=== PATIENT | female | born 1960 | race Caucasian/White ===

== ENCOUNTER 2019-12-14 15:21 | Outpatient (CLI) | payer OTHER, SELFPAY ==
[2019-12-14 17:55] LABS: Blood Urea Nitrogen 21 mg/dL (7-17); Calcium 10.1 mg/dL (8.4-10.2); Carbon Dioxide 29 mmol/L (22-30); Chloride 99 mmol/L (98-107); Estimated Glomerular Filt Rate > 60; Glucose 89 mg/dL (65-105); Potassium 3.9 mmol/L (3.4-5.0); Sodium 137 mmol/L (137-145)
--- NOTE | 2019-12-19 12:14 | WPDHOLTEREM ---
Holter/Event Monitor Holter/Event Monitor Date of procedure: 12/14/19 Procedure Type: 24 hour holter monitor Indications: Palpitations, HTN Conclusion: 1. 24 hour holter monitor on 12/14/19. 2. Underlying rhythm is sinus rhythm. HR range 59-141 bpm; average HR 81 bpm. 3. There are 6 premature supraventricular complexes. No supraventricular tachycardia. 4. No premature ventricular complexes. No ventricular tachycardia. 5. No sinoatrial or atrioventricular blocks. No significant pauses greater than 2 seconds. 6. Patient reports symptoms of fluttering and racing which demonstrate sinus rhythm, HR range 76-102 bpm.
== END 2019-12-14 15:22 | disposition home or self-care (01) ==
DX: R00.2 Palpitations (principal); I10 Essential (primary) hypertension; I49.3 Ventricular premature depolarization
CPT/HCPCS: 36415; 80048; 83735; 84443; 93225; 93226

== ENCOUNTER 2020-08-26 06:38 | Outpatient (CLI) | payer OTHER, SELFPAY ==
[2020-08-26 07:43] LABS: Hematocrit 38.1 % (37.0-47.0); Hemoglobin 12.8 g/dL (12.0-15.0); Mean Corpuscular HGB Conc 33.6 g/dl (32-36); Mean Corpuscular Hemoglobin 31.1 pg (26-34); Mean Corpuscular Volume 92.5 fl (80-100); Mean Platelet Volume 9.7 fl (7.4-10.4); Platelet Count Result 295 k/mm3 (150-375); Red Blood Count 4.12 M/mm3 (4.2-5.4); Red Cell Distribution Width 11.9 % (11.5-14.5); White Blood Count 5.5 K/mm3 (4.5-10.0)
[2020-08-26 07:52] LABS: Add Urine Microscopic? YES; Appearance Urine Clear (Clear); Bacteria Urine 3+ /hpf; Bilirubin Urine Negative (Negative); Blood Urine Negative (Negative); Color Urine Yellow (Yellow); Glucose Urine UA Negative (Negative); Ketones Urine Negative (Negative); Leukocyte Esterase Ur 2+ LEU/UL (Negative); Mucus Urine Rare /lpf; Nitrate Urine Positive (Negative); Protein Urine Negative (Negative); Specific Grav Ur 1.011 (1.001-1.035); Squamous Epithelial Cell Urine Few /hpf (Few); Transitional Epi Cells Urine Rare /hpf (None Seen); Urobilinogen Urine Negative mg/dL (<2.0); WBC Urine 51-75 /hpf
[2020-08-26 07:56] LABS: Cholesterol 280 mg/dL (0-200); HDL Direct 69 mg/dL; Triglycerides 231 mg/dL (<150)
[2020-08-26 08:07] LABS: LDL Cholesterol Direct 172 mg/dL
[2020-08-26 10:23] LABS: Hepatitis C Virus Antibody Negative (Negative)
== END 2020-08-26 06:39 | disposition home or self-care (01) ==
PROVIDERS: PCP Internal Medicine; Visit Provider Internal Medicine
DX: Z13.29 Encounter for screening for other suspected endocrine disorder (principal); Z13.228 Encounter for screening for other metabolic disorders; Z13.0 Encounter for screening for diseases of the blood and blood-forming organs and certain disorders involving the immune mechanism; E78.00 Pure hypercholesterolemia, unspecified; Z11.59 Encounter for screening for other viral diseases; I10 Essential (primary) hypertension; R00.2 Palpitations
CPT/HCPCS: 36415; 80061; 81001; 83735; 84443; 85027; 86803; 87077; 87086; 87088; 87186

== ENCOUNTER 2020-10-02 06:50 | Outpatient (CLI) | payer OTHER, SELFPAY ==
--- NOTE | ~2020-10-02 | XR_ITS ---
EXAMINATION: XR chest 2V DATE: 10/02/2020 07:16 INDICATION: Chronic cough TECHNIQUE: PA and lateral views of the chest were obtained. COMPARISON: Chest radiograph dated 05/19/2006 FINDINGS: The lungs remain clear with no focal airspace opacities, pulmonary edema, pleural effusion or pneumot horax. The cardiomediastinal silhouette is normal. Mild to moderate thoracic spondylosis. IMPRESSION: 1. No acute cardiopulmonary disease. Reviewed, dictated and finalized at location A. ETIC DENTIST
[2020-10-02 08:02] LABS: Basophils Absolute Auto 0.1 K/mm3 (0.0-0.1); Basophils Percent Auto 0.9 % (0.2-1.2); Eosinophils Absolute Auto 0.2 K/mm3 (0-0.3); Eosinophils Percent Auto 2.9 % (0-4.4); Hematocrit 37.3 % (37.0-47.0); Hemoglobin 12.5 g/dL (12.0-15.0); Immature Granulocyte Absolute 0.01 K/mm3 (0.00-0.031); Immature Granulocyte Percent A 0.2 % (0-0.5); Lymphocytes Absolute Auto 2.07 K/mm3 (0.9-3.2); Mean Corpuscular HGB Conc 33.5 g/dl (32-36); Mean Corpuscular Hemoglobin 30.2 pg (26-34); Mean Corpuscular Volume 90.1 fl (80-100); Mean Platelet Volume 9.5 fl (7.4-10.4); Monocytes Absolute Auto 0.5 K/mm3 (0.1-0.6); Monocytes Percent Auto 9.3 % (2.6-8.5); Neutrophils Absolute Auto 2.8 K/mm3 (1.3-6.7); Neutrophils Percent Auto 49.7 % (45.5-73.1); Platelet Count Result 290 k/mm3 (150-375); Red Blood Count 4.14 M/mm3 (4.2-5.4); Red Cell Distribution Width 11.9 % (11.5-14.5); White Blood Count 5.6 K/mm3 (4.5-10.0)
[2020-10-02 08:19] LABS: CRP < 0.5 mg/dL (<1.0)
[2020-10-02 08:44] LABS: Erythrocyte Sedimentation Rate 20 mm/hr (0-20)
--- NOTE | 2020-10-02 15:51 | WPDPFTINT ---
PFT Interpretation This is a pulmonary function test with pre and post-bronchodilator spirometry, plethysmography and diffusing capacity. The test was performed and results interpreted in accordance with the 2019 and 2005 ATS/ERS Task Force guidelines respectively using the Ward/Pooja reference equations. Findings: Spirometry: the contour of the inspiratory and expiratory flow tracing are normal. The pre bronchodilator FVC is 2.82 L, 97% predicted. The pre bronchodilator FEV1 is 2.34 L, 110% predicted. The FEV1: FVC ratio was 83%. The post bronchodilator FVC is 2.61 L, representing a 7% decrease. The post bronchodilator FEV1 is 2.27 L, representing a 3% decrease. Plethysmography: The total lung capacity is 4.67 L, 100% predicted. The functional residual capacity is 2.49 L, 93% predicted. The residual volume is 1.78 L, 100% predicted. Diffusing capacity: The absolute diffusion capacity is 14.8, 78% predicted. The diffusing capacity corrected for alveolar volume is 3.97, 106% predicted. Impression: The spirometry is normal without evidence of an obstructive abnormality. There is no significant improvement after inhaling a single dose of albuterol. The lung volumes are normal. The diffusing capacity is normal. There are no prior studies for comparison
[2020-10-06 00:36] LABS: Immunoglobulin E 18 kU/L (<=114)
== END 2020-10-02 06:51 | disposition home or self-care (01) ==
PROVIDERS: PCP Internal Medicine
DX: R05 Cough (principal)
CPT/HCPCS: 36415; 71046; 82785; 85025; 85652; 86140; 94060; 94726; 94729

== ENCOUNTER 2020-10-24 09:32 | Outpatient (CLI) | payer OTHER, SELFPAY ==
--- NOTE | 2020-10-24 16:48 | P.PCNPFT_ITS ---
PFT Interpretation This is a methacholine challenge test. The test was performed and interpreted in accordance with the 1999 [place] [employer] guidelines. The test was performed with increasing doses of nebulized methacholine using a 2 minute tidal breathing protocol. The best post-methacholine FEV1 values were used to calculate the change from the post diluent FEV1. Findings: Baseline FEV1 2.27 L, 96% predicted. Post diluent FEV1 2.27 L Post 0.025 mg/ml methacholine FEV1 2.27 L, no change Post 0.25 mg/mL methacholine FEV1 2.25 L, decreased 1% Post 2.5 mg/mL methacholine FEV1 2.28 L, increase 1% Post 10 mg/mL methacholine FEV1 2.25 L, decreased 1% Post 25 mg/mL methacholine FEV1 2.24 L, decreased 1% Post albuterol nebulization FEV1 2.27 L Impression: The PC20 is > 25 mg/ml which is categorized as normal bronchial responsiveness. There are no prior methacholine challenge studies for comparison
== END 2020-10-24 09:33 | disposition home or self-care (01) ==
LOC: ANHPFT 09:34
PROVIDERS: PCP Internal Medicine
DX: R05 Cough (principal)
CPT/HCPCS: 94070; J7674

== ENCOUNTER 2021-02-26 07:05 | Outpatient (CLI) | payer OTHER, SELFPAY ==
[2021-02-26 09:43] LABS: Alanine Aminotransferase 32 U/L (4-35); Albumin Level 4.5 g/dL (3.5-5.1); Alkaline Phosphatase 73 U/L (38-126); Anion Gap 8 mmol/L (8-16); Aspartate Amino Transferase 52 U/L (14-36); Bilirubin,Total 0.6 mg/dL (0.2-1.3); Blood Urea Nitrogen 12 mg/dL (7-17); Calcium 9.8 mg/dL (8.4-10.2); Carbon Dioxide 29 mmol/L (22-30); Chloride 96 mmol/L (98-107); Cholesterol 198 mg/dL (0-200); Creatine Kinase 63 U/L (30-135); Estimated Glomerular Filt Rate > 60; Glucose 99 mg/dL (65-110); HDL Direct 69 mg/dL; Potassium 4.6 mmol/L (3.4-5.0); Sodium 133 mmol/L (137-145); Triglycerides 112 mg/dL (<150)
[2021-02-26 09:54] LABS: LDL Cholesterol Direct 85 mg/dL
== END 2021-02-26 07:06 | disposition home or self-care (01) ==
PROVIDERS: PCP Internal Medicine; Visit Provider Internal Medicine
DX: E78.5 Hyperlipidemia, unspecified (principal); I10 Essential (primary) hypertension
CPT/HCPCS: 36415; 80053; 80061; 82550

== ENCOUNTER 2021-03-03 07:01 | Outpatient (CLI) | payer OTHER, SELFPAY ==
[2021-03-03 07:32] LABS: Alanine Aminotransferase 33 U/L (4-35); Albumin Level 4.6 g/dL (3.5-5.1); Alkaline Phosphatase 74 U/L (38-126); Anion Gap 9 mmol/L (8-16); Aspartate Amino Transferase 46 U/L (14-36); Bilirubin,Total 0.5 mg/dL (0.2-1.3); Blood Urea Nitrogen 16 mg/dL (7-17); Calcium 9.7 mg/dL (8.4-10.2); Carbon Dioxide 27 mmol/L (22-30); Chloride 102 mmol/L (98-107); Estimated Glomerular Filt Rate > 60; Glucose 104 mg/dL (65-110); Potassium 4.4 mmol/L (3.4-5.0); Sodium 138 mmol/L (137-145)
== END 2021-03-03 07:02 | disposition home or self-care (01) ==
LOC: ANHLAB 07:05
PROVIDERS: PCP Internal Medicine; Visit Provider Internal Medicine
DX: E87.1 Hypo-osmolality and hyponatremia (principal)
CPT/HCPCS: 36415; 80053

== ENCOUNTER 2021-04-14 09:13 | Emergency (ER) | payer OTHER, SELFPAY ==
[2021-04-14 09:24] VITALS: BP 173/92; PULSE 77; RESP 16; TEMP 36.4; O2SAT 100
--- NOTE | 2021-04-14 09:32 | ED.GENADULT ---
HPI - General Adult General Chief complaint: Nausea/Vomiting/Diarrhea Stated complaint: Throwing Up Time Seen by Provider: 04/14/21 09:32 Source: patient and RN notes reviewed Mode of arrival: ambulatory Limitations: no limitations History of Present Illness HPI narrative: 61-year-old female presents to the [facility] with complaints of diarrhea since yesterday, woke up in the middle the night with a fever of 100, states that she started vomiting. Comes in today with concerns. Patient states that she was exposed 10 days ago Patient reports that she has taken 3 home Covid tests and states they were all negative. She was concerned of the diarrhea since yesterday and the vomiting last night. Denies any new foods. Denies eating out. Denies any chest pain or abdominal pain. Related Data Home Medications Medication Instructions Recorded Confirmed irbesartan 300 mg PO DAILY 04/14/21 04/14/21 metoprolol succinate 50 mg PO DAILY 04/14/21 04/14/21 Allergies Allergy/AdvReac Type Severity Reaction Status Date / Time clarithromycin AdvReac Unknown NAUSEA/VOMI Verified 04/14/21 09:36 TING levofloxacin AdvReac Unknown SEVERE ABD Verified 04/14/21 09:36 PAIN lisinopril AdvReac Unknown COUGH Verified 04/14/21 09:36 Review of Systems Review of Systems: All systems reviewed & are unremarkable except as noted in HPI and below Constitutional: Constitutional: Reports as per HPI, Denies chills and Reports fever(s) Eyes: Eyes: Reports no additional eye complaints ENT: Reports system reviewed and no additional complaints, except as documented Cardiovascular: Cardiovascular: Reports no additional cardiovascular complaints and Denies chest pain Respiratory: Respiratory: Reports no additional respiratory complaints, Denies cough, Denies dyspnea and Denies wheezing Gastrointestinal: Gastrointestinal: Reports as per HPI, Denies abdominal pain, Reports diarrhea, Denies nausea and Reports vomiting Musculoskeletal: Musculoskeletal: Reports no additional musculoskeletal complaints, Denies back pain, Denies joint swelling and Denies muscle cramps Integumentary/Breasts: Skin/Breast: Reports system reviewed and no additional complaints, except as docu and Denies rash Neurologic: Reports system reviewed and no additional complaints, except as documented Psychiatric: Psychiatric: Reports no additional psychiatric complaints Allergic/Immunologic: Allergic/Immunologic: Reports no additional allergic/immunologic complaints PMFSH Past Medical History Medical History Hypertension Surgical History Surgical History (Updated 04/14/21 @ 09:49 by Aide Guerra) No significant past surgical history Family History Family History Other Hypertension Social History Social History Smoking status: Never smoker Alcohol intake: current Comments At the time of my signature, I reviewed and agree with the nursing past medical, surgical, social, and family history. There is no relevant family history pertinent to the patient complaint. Exam Narrative: Patient appears healthy, nontoxic. In no acute distress. Const: General: healthy appearing, no acute distress and alert Nutritional Appearance: well nourished Orientation/consciousness: patient oriented x3 Limitations: no limitations HENMT: Head: normal to inspection Ears: external ears normal Eyes: Conjunctivae: conjunctivae normal Pupils: Equal, round and reactive pupils present Neck: Neck: normal visual inspection, no lymphadenopathy and no meningeal signs Chest: Chest palpation & inspection: normal inspection of the chest Resp: Effort & Inspection: normal respiratory effort and no use of accessory muscles Auscultation: clear to auscultation bilaterally, no crackles, no rales, no rhonchi and no wheezes Cardio: Rate: regular
[2021-04-15 19:52] LABS: SARS-CoV-2 RNA PCR Negative
== END 2021-04-14 09:58 | disposition home or self-care (01) ==
PROVIDERS: Emergency Provider Nurse Practitioner; PCP Internal Medicine
DX: K52.9 Noninfective gastroenteritis and colitis, unspecified (principal); I10 Essential (primary) hypertension; Z20.822 Contact with and (suspected) exposure to COVID-19
CPT/HCPCS: 99213; C9803; G0463; U0003; U0005

== ENCOUNTER 2021-06-17 06:53 | Outpatient (CLI) | payer OTHER, SELFPAY ==
[2021-06-17 07:25] LABS: Alanine Aminotransferase 31 U/L (4-35); Albumin Level 4.9 g/dL (3.5-5.1); Alkaline Phosphatase 75 U/L (38-126); Anion Gap 6 mmol/L (8-16); Aspartate Amino Transferase 39 U/L (14-36); Bilirubin,Total 0.6 mg/dL (0.2-1.3); Blood Urea Nitrogen 15 mg/dL (7-17); Calcium 9.8 mg/dL (8.4-10.2); Carbon Dioxide 31 mmol/L (22-30); Chloride 100 mmol/L (98-107); Estimated Glomerular Filt Rate > 60; Glucose 103 mg/dL (65-110); Potassium 4.4 mmol/L (3.4-5.0); Sodium 137 mmol/L (137-145)
== END 2021-06-17 06:54 | disposition home or self-care (01) ==
LOC: ANHLAB 06:57
PROVIDERS: PCP Internal Medicine; Visit Provider Internal Medicine
DX: R74.01 Elevation of levels of liver transaminase levels (principal); E87.1 Hypo-osmolality and hyponatremia
CPT/HCPCS: 36415; 80053

== ENCOUNTER 2021-10-20 07:30 | Outpatient (RCR) | payer OTHER, SELFPAY ==
--- NOTE | 2021-09-30 15:22 | PTOPEVAL ---
PHYSICAL THERAPY EVALUATION AND PLAN OF CARE Thank you for referring Vivi Clifford to [facility].? The patient is scheduled to be seen for therapy? 2x/week for 3 weeks. Please review, sign, date and return this plan of care ERIC. I agree with and certify that the following plan of care is medically necessary. Referring Physician Date Attending Provider: Milad Mendoza MD Evaluation Diagnosis left knee pain Onset May 2021 Subjective Information In 05/29 she took a small Query Text:As Reported By Patient/ stumble in the door jam and Family she fell to the left without significant injury. Over time though she was feeling that evrey time she would stand up she felt pain or pinching or the knee giving out. She received an injection from the doctor and she is feeling only minimal pain in the knee. Since the injection she has only been feeling minimally any instability or achiness in the knee. Self Report Pain Assessment Left Knee(s) Reported Pain Level 0 Pain Description Aching Pain Frequency Chronic,Intermittent Greatest Pain Intensity 3 Pain Score Pain Score 0: Self Report Interventions Used Interventions Used By Clinicians Exercise Lower Extremity Range of Motion General Lower Extremity Range of Motion Reason Not Measured WNL/Left,WNL/Right Lower Extremity Muscle Strength Testing Hip Strength Right Hip Flexion Strength 5 Normal Hip Extension Strength 4- Good - Hip Abduction Strength 3+ Fair + Left Hip Flexion Strength 4 Good Hip Extension Strength 3+ Fair + Hip Abduction Strength 4- Good - Knee Strength Right Knee Flexion Strength 5 Normal Knee Extension Strength 5 Normal Knee Strength Comments single leg sit to stand: performed well with confidence single leg heel raises: 07/28 Left Knee Flexion Strength 4 Good Knee Extension Strength 4 Good Knee Strength Comments single leg sit to stand: performed well with some hesitancy to descend and ascend; single leg heel raises : 05/28 Muscle Length Testing Muscle Length Testing Left Hamstring Length -30 Query Text:(90 - 90 Position) Right Hamstring Length
--- NOTE | 2021-10-20 07:59 | PTOPEVAL ---
PHYSICAL THERAPY DISCHARGE NOTE Thank you for referring Vivi Clifford to [facility].? Please review, sign, date and return this plan of care ERIC. I agree with and certify that the following plan of care is medically necessary. Referring Physician Date Attending Provider: Milad Mendoza MD Discharge Diagnosis left knee pain Onset May 2021 Subjective Information Jaylene has participated in Query Text:As Reported By Patient/ physical therapy for 3 weeks. Family She reports that she has been doing yard work and gardening without feeling like the knee is going to give out and only having a little bit of soreness a few hours after. Pain Assessment Timing of Pain Assessment Timing of Pain Assessment Assessment Self Report Self Report Pain Level 0 Pain Score Pain Score 0: Self Report Lower Extremity Range of Motion General Lower Extremity Range of Motion Reason Not Measured WNL/Left,WNL/Right Lower Extremity Muscle Strength Testing Hip Strength Right Hip Flexion Strength 5 Normal Hip Extension Strength 4+ Good + Hip Abduction Strength 4+ Good + Left Hip Flexion Strength 5 Normal Hip Extension Strength 4+ Good + Hip Abduction Strength 4+ Good + Knee Strength Right Knee Flexion Strength 5 Normal Knee Extension Strength 5 Normal Knee Strength Comments single leg sit to stand: performed well with confidence Left Knee Flexion Strength 5 Normal Knee Extension Strength 5 Normal Knee Strength Comments single leg sit to stand: performed well with only mild difficulty compared to the right Muscle Length Testing Muscle Length Testing Left Hamstring Length -20 Query Text:(90 - 90 Position) Right Hamstring Length -20 Query Text:(90 - 90 Position) General Exercise General Exercises Side Left,Bilateral Exercise Location LE Exercise Type Active,Proprioceptive Neuromuscular Facilitation, Resistive,Stabilization, Stretching Exercise Description reviewed HEP Query Text:Record Sets, Reps, Resistance, and Position Bike Exercise Bike Extremity Bilateral Lower Type of Bike Recumbent Bike Resistance 6 Duration (minutes) 6 Exercise Commen
== END 2021-10-20 08:56 | disposition home or self-care (01) ==
LOC: ANHPT 07:30
PROVIDERS: PCP Internal Medicine; Referring Provider Orthopaedic Surgery; Visit Provider Orthopaedic Surgery
DX: M25.562 Pain in left knee (principal); G89.29 Other chronic pain
CPT/HCPCS: 97110; 97112; 97161; 97530

== ENCOUNTER 2022-03-15 02:37 | Emergency (ER) | payer OTHER, SELFPAY ==
[2022-03-15] VITALS (7 sets, daily range): BP systolic 141–183; BP diastolic 70–113; PULSE 72–84; RESP 17–20; TEMP 36.6; O2SAT 97–99
[2022-03-15] MEDS: ONDANSETRON INJ 4 MG/2 ML VIAL IV PUSH (03:42)
[2022-03-15] MEDS: SODIUM CHLORIDE 0.9% IV 2,000 ML 999 ML IV CONT (03:43)
[2022-03-15] MEDS: FAMOTIDINE 20 MG/2 ML VIAL IV PUSH (03:43)
[2022-03-15 03:52] LABS: Basophils Absolute Auto 0.1 K/mm3 (0.0-0.1); Basophils Percent Auto 0.7 % (0.2-1.2); Eosinophils Absolute Auto 0.1 K/mm3 (0-0.3); Eosinophils Percent Auto 0.7 % (0-4.4); Hematocrit 34.6 % (37.0-47.0); Hemoglobin 12.1 g/dL (12.0-15.0); Immature Granulocyte Absolute 0.02 K/mm3 (0.00-0.031); Immature Granulocyte Percent A 0.2 % (0-0.5); Lymphocytes Absolute Auto 2.71 K/mm3 (0.9-3.2); Lymphocytes Percent Auto 31.8 % (18.3-44.2); Mean Corpuscular Hemoglobin 30.6 pg (26-34); Mean Corpuscular Volume 87.6 fl (80-100); Mean Platelet Volume 10.2 fl (7.4-10.4); Monocytes Absolute Auto 0.7 K/mm3 (0.1-0.6); Monocytes Percent Auto 8.6 % (2.6-8.5); Neutrophils Absolute Auto 4.9 K/mm3 (1.3-6.7); Platelet Count Result 284 k/mm3 (150-375); Red Blood Count 3.95 M/mm3 (4.2-5.4); Red Cell Distribution Width 11.6 % (11.5-14.5); White Blood Count 8.5 K/mm3 (4.5-10.0)
[2022-03-15 04:04] LABS: Alanine Aminotransferase 17 U/L (6-35); Albumin Level 4.8 g/dL (3.5-5.1); Alkaline Phosphatase 87 U/L (38-126); Anion Gap 12 mmol/L (8-16); Aspartate Amino Transferase 37 U/L (14-36); Bilirubin,Total 0.9 mg/dL (0.2-1.3); Blood Urea Nitrogen 17 mg/dL (7-17); Calcium 9.3 mg/dL (8.4-10.2); Carbon Dioxide 24 mmol/L (22-30); Chloride 88 mmol/L (98-107); Estimated CRCL calculation 46 ml/min; Estimated Glomerular Filt Rate > 60; Glucose 130 mg/dL (65-110); Lipase 71 U/L (23-300); Potassium 3.6 mmol/L (3.4-5.0); Sodium 124 mmol/L (137-145)
--- NOTE | 2022-03-15 04:17 | PC.NURSE ---
Patient given ice chips upon request, ERP okayed.
[2022-03-15] MEDS: ONDANSETRON HCL ODT 4 MG TABLET PO (04:24)
--- NOTE | 2022-03-15 04:46 | ED.GENADULT ---
HPI - General Adult General Chief complaint: Nausea/Vomiting/Diarrhea Stated complaint: N/V/D, dehydration? Time Seen by Provider: 03/15/22 03:19 History of Present Illness HPI narrative: This is a 61-year-old female presenting to ED for nausea and vomiting. The patient was outside at a licensed appraiser throughout most of the day. She is confined to a small room that was very hot. She was sweating profusely. She did try to rehydrate by drinking water. She did not drink anything with electrolytes. When the patient got home she was nauseous and vomiting. She cannot keep down fluids. She is thinking the emergency department for further evaluation. Patient denies chest pain, difficulty breathing abdominal pain or diarrhea. Related Data Home Medications Medication Instructions Recorded Confirmed irbesartan 300 mg tablet 300 mg PO DAILY 04/14/21 11/11/21 metoprolol succinate 50 mg 50 mg PO DAILY 04/14/21 11/11/21 tablet,extended release 24 hr budesonide 32 mcg/actuation nasal 1 spray intranasal DAILY 09/24/21 11/11/21 spray oxybutynin chloride 15 mg 15 mg PO DAILY 09/24/21 11/11/21 tablet,extended release 24 hr rosuvastatin 10 mg tablet 10 mg PO DAILY 09/24/21 11/11/21 sertraline 25 mg tablet 25 mg PO DAILY 09/24/21 11/11/21 Allergies Allergy/AdvReac Type Severity Reaction Status Date / Time clarithromycin AdvReac Unknown NAUSEA/VOMI Verified 03/15/22 02:54 TING levofloxacin AdvReac Unknown SEVERE ABD Verified 03/15/22 02:54 PAIN lisinopril AdvReac Unknown COUGH Verified 03/15/22 02:54 Review of Systems Review of Systems: CONSTITUTIONAL: Denies night sweats. EYES: No eye pain ENT: Denies rhinorrhea CARDIOVASCULAR: Denies palpitations RESPIRATORY: Denies hemoptysis GASTROINTESTINAL: Denies hematemesis GENITOURINARY: Denies hematuria. SKIN: Denies rash MUSCULOSKELETAL: Denies myalgia. NEUROLOGIC: Denies weakness. PSYCHIATRIC: Denies delusions PMFSH Past Medical History Medical History Depression Heart disease Hyperlipidemia Hypertension Left knee pain Overactive bladder Surgical History Surgical History H/O: hysterectomy No significant past surgical history Family History Family History Other Hypertension Social History Social History Smoking status: Never smoker Alcohol intake: current Substance use: never Living arrangements: with family Occupation/Education: occupation Gender identity (if verbalized by the patient): Female Exam Narrative: APPEARANCE: No apparent distress. Head atraumatic. EYES: PERRLA/EOMI, NOSE: Normal no drainage NECK: Supple, Trachea midline RESPIRATORY: CTAB, No increased work of breathing. CARDIOVASCULAR: S1S2 appreciated ABDOMINAL: Soft, nontender, nondistended, MUSCULOSKELETAl: No obvious deformities NEURO: Alert. Moving 4/4 extremities SKIN:: Warm, dry. Normal color PSYCHIATRIC: Normal affect Course Vital Signs Vital signs: Vital Signs Pulse Rate 84 03/15/22 02:43 Respiratory Rate 20 03/15/22 02:43 Blood Pressure 175/113 H 03/15/22 02:43 Pulse Oximetry 98 03/15/22 02:43 Oxygen Delivery Room Air 03/15/22 02:43 Temperature 97.9 F 03/15/22 02:52 Pulse Rate 72 03/15/22 04:02 Respiratory Rate 17 03/15/22 04:02 Blood Pressure 154/71 H 03/15/22 04:02 Pulse Oximetry 98 03/15/22 04:02 Oxygen Delivery Room Air 03/15/22 02:43 Medical Decision Making [facility] Narrative Medical decision making narrative: This is a 61-year-old female presenting to ED with nausea and vomiting. She was exposed to significant amount of heat today and not rehydrate adequately. Abdominal lab work has been ordered which revealed hyponatremia and hypochloremia which could be indicative of dehydration
[2022-03-15] MEDS: diphenhydrAMINE HCl INJ 50 MG/ML VIAL 25 MG IV PUSH (05:36)
== END 2022-03-15 05:58 | disposition home or self-care (01) ==
PROVIDERS: Emergency Provider Emergency Medicine; PCP Internal Medicine
DX: T67.5XXA Heat exhaustion, unspecified, initial encounter (principal); E86.0 Dehydration; E78.5 Hyperlipidemia, unspecified; I11.9 Hypertensive heart disease without heart failure; N32.81 Overactive bladder; F32.A Depression, unspecified; Z90.710 Acquired absence of both cervix and uterus; X30.XXXA Exposure to excessive natural heat, initial encounter
CPT/HCPCS: 36415; 80053; 83690; 85025; 96361; 96374; 96375; 99284; A9270; J1200; J2405; J7030

== ENCOUNTER 2022-03-18 08:27 | Outpatient (CLI) | payer OTHER, SELFPAY ==
[2022-03-18 10:00] LABS: Anion Gap 9 mmol/L (8-16); Blood Urea Nitrogen 11 mg/dL (7-17); Calcium 9.8 mg/dL (8.4-10.2); Carbon Dioxide 30 mmol/L (22-30); Chloride 98 mmol/L (98-107); Estimated Glomerular Filt Rate > 60; Glucose 101 mg/dL (65-110); Potassium 4.1 mmol/L (3.4-5.0); Sodium 137 mmol/L (137-145)
== END 2022-03-18 08:28 | disposition home or self-care (01) ==
PROVIDERS: PCP Internal Medicine; Visit Provider Internal Medicine
DX: I10 Essential (primary) hypertension (principal)
CPT/HCPCS: 36415; 80048

== ENCOUNTER 2022-04-04 09:26 | Emergency (ER) | payer OTHER, SELFPAY ==
--- NOTE | ~2022-04-04 | XR_ITS ---
EXAMINATION: XR foot LT min 3V DATE: 04/04/2022 09:46 INDICATION: Left foot pain TECHNIQUE: Dorsoplantar, lateral, and 2 oblique views of the left foot were obtained. COMPARISON: None. FINDINGS: There is a possible nondisplaced fracture in the head of the first metatarsal. There is sof t tissue swelling of the foot near the first metatarsophalangeal joint. No additional suspected fract ure is identified. There is mild osteoarthritis of multiple interphalangeal joints. IMPRESSION: 1. Possible nondisplaced fracture in the head of the first metatarsal. Consider follow-up radiographs in 7-10 days to evaluate for productive changes of bony healing. Reviewed, dictated and finalized at location A.
[2022-04-04 09:34] VITALS: BP 154/67; PULSE 71; RESP 16; TEMP 37.3; O2SAT 100
--- NOTE | 2022-04-04 09:51 | ED.LOWEXIN ---
HPI - Extremity Injury (Lower) General Chief Complaint: Extremity Injury, Lower Stated Complaint: left foot pain Time Seen by Provider: 04/04/22 09:51 History of Present Illness HPI Narrative: Vivi Clifford is a 62 yo female with high cholesterol, [facility] a left great toe injury from last night playing with her grandkids in the pool where she ran her toe into the side of the pool. She has some bruising and some pain with movement that is point tenderness at the middle tarsal joint Related Data Home Medications Medication Instructions Recorded Confirmed irbesartan 300 mg tablet 300 mg PO DAILY 04/14/21 04/04/22 metoprolol succinate 50 mg 50 mg PO DAILY 04/14/21 04/04/22 tablet,extended release 24 hr budesonide 32 mcg/actuation nasal 1 spray intranasal DAILY 09/24/21 04/04/22 spray oxybutynin chloride 15 mg 15 mg PO DAILY 09/24/21 04/04/22 tablet,extended release 24 hr rosuvastatin 10 mg tablet 10 mg PO DAILY 09/24/21 04/04/22 sertraline 25 mg tablet 25 mg PO DAILY 09/24/21 04/04/22 amlodipine 5 mg tablet 5 mg PO DAILY 04/04/22 04/04/22 montelukast 10 mg tablet 10 mg PO DAILY 04/04/22 04/04/22 Allergies Allergy/AdvReac Type Severity Reaction Status Date / Time clarithromycin AdvReac Unknown NAUSEA/VOMI Verified 04/04/22 09:36 TING levofloxacin AdvReac Unknown SEVERE ABD Verified 04/04/22 09:36 PAIN lisinopril AdvReac Unknown COUGH Verified 04/04/22 09:36 Review of Systems Review of Systems: CONSTITUTIONAL: Denies fever, chills, sweats. EYES: Denies visual changes, redness, discharge. ENT: Denies rhinorrhea, congestion, sore throat, otalgia. CARDIOVASCULAR: Denies chest pain, palpitations, edema. RESPIRATORY: Denies dyspnea, wheezing, cough GASTROINTESTINAL: Denies abdominal pain, nausea, vomiting, diarrhea. GENITOURINARY: Denies dysuria, hematuria, abnormal discharge SKIN: Denies rash or itching. NEUROLOGIC: Denies numbness, or focal weakness. PSYCHIATRIC: Denies anxiety or depression. Left great toe pain PMFSH Past Medical History Medical History Depression Heart disease Hyperlipidemia Hypertension Left knee pain Overactive bladder Surgical History Surgical History H/O: hysterectomy No significant past surgical history Family History Family History Other Hypertension Social History Social History Smoking status: Never smoker Alcohol intake: current Substance use: never Living arrangements: with family Occupation/Education: occupation Gender identity (if verbalized by the patient): Female Comments At time of signature, I agree with nursing past medical, surgical, social and family history. There is no relevant family history pertinent to the presenting complaint. Exam Narrative: GENERAL: This is a well-nourished, well-developed patient, in mild distress. HEAD: normocephalic, atraumatic. EYES: Sclera clear/white. Vision is grossly intact. EARS: External ears normal, . Hearing grossly intact. NOSE: External nose normal without nasal discharge, nares without redness, no rhinorrhea. THROAT: Mucous membranes moist, NECK: Neck supple, CARDIOVASCULAR: Regular rate and rhythm without murmurs, gallops, or rubs. RESPIRATORY: Clear to auscultation. Breath sounds equal bilaterally. No wheezes, rales, or rhonchi. GASTROINTESTINAL: Not done SKIN: warm, intact with no suspicious lesions or rash, good texture and turgor. NEURO: awake, alert, and oriented to person, place and time. There were no obvious focal neurologic abnormalities. Steady gait EXTREMITIES: Normal range of motion. Left great toe pain point tenderness at the medic tarsal joint on the lateral side mild ecchymosis BACK: Nontender without deformity Course Course Fauzia
== END 2022-04-04 10:28 | disposition home or self-care (01) ==
PROVIDERS: Emergency Provider Nurse Practitioner
DX: S92.302A Fracture of unspecified metatarsal bone(s), left foot, initial encounter for closed fracture (principal); W22.8XXA Striking against or struck by other objects, initial encounter; E78.5 Hyperlipidemia, unspecified; I10 Essential (primary) hypertension; F32.A Depression, unspecified; N32.81 Overactive bladder
CPT/HCPCS: 73630; 99214; G0463

== ENCOUNTER 2022-04-07 08:37 | Outpatient (CLI) | payer OTHER, SELFPAY ==
--- NOTE | ~2022-04-07 | XR_ITS ---
XR foot LT min 3V DATE: 04/07/2022 08:52 INDICATION: Stubbed foot on 4 days ago. Bruising and pain, left foot, great toe TECHNIQUE: 4 views COMPARISON: 04/04/2022 left foot FINDINGS: There is mild hallux valgus and bunion deformity. There is mild osteoarthritis at the first metatarsophalangeal joint. Mild posterior calcaneal enthesopathy. No recent fracture or dislocation, periosteal reaction or bone destruction is detected. IMPRESSION: No recent fracture or dislocation Reviewed, dictated and finalized at location B.
== END 2022-04-07 08:38 | disposition home or self-care (01) ==
LOC: ANHIMG 08:39
PROVIDERS: PCP Internal Medicine; Visit Provider Internal Medicine
DX: M79.672 Pain in left foot (principal)
CPT/HCPCS: 73630

== ENCOUNTER 2022-05-14 07:35 | Outpatient (CLI) | payer OTHER, SELFPAY ==
--- NOTE | 2022-05-19 19:33 | WPDSLEEPSTUD ---
Sleep Study Date of Study: 05/14/22 Ordering Provider: BARRY Aguilera Interpreting Physician: Sachi Garcia MD Sleep Study Type: Split Polysomnogram Height: 1.6 m Weight: 64.319 kg Body Mass Index: 25.1 Neck Circumference (inches): 15 Ralston: 13 Reason for Sleep Study Witnessed apnea, loud snoring Sleep History Vivi Clifford is a 62-year-old female with excessive daytime sleepiness. She snores. Her at 1 point woke her telling her she was not breathing. She has non refreshing sleep. She is fatigued throughout the day which is worse in the afternoons. This has been going on for years. She had 1 episode of sleep walking years ago. She occasionally sleep talks. She has cramping in her feet and legs at night. She does not generally have dream recall. She does not drink caffeine. The patient did not complete a sleep survey. [facility] Past Medical History Medical History Depression Heart disease Hyperlipidemia Hypertension Left knee pain Overactive bladder Surgical History Surgical History H/O: hysterectomy No significant past surgical history Family History Family History Other Hypertension Social History Social History Smoking status: Never smoker Alcohol intake: current Substance use: never Living arrangements: with family Occupation/Education: occupation Gender identity (if verbalized by the patient): Female Medications Home Medications Medication Instructions Recorded Confirmed Type irbesartan 300 mg tablet 300 mg PO DAILY 04/14/21 05/04/22 History metoprolol succinate 50 mg 50 mg PO DAILY 04/14/21 05/04/22 History tablet,extended release 24 hr budesonide 32 mcg/actuation nasal 1 spray intranasal DAILY 09/24/21 05/04/22 History spray oxybutynin chloride 15 mg 15 mg PO DAILY 09/24/21 05/04/22 History tablet,extended release 24 hr rosuvastatin 10 mg tablet 10 mg PO DAILY 09/24/21 05/04/22 History sertraline 25 mg tablet 25 mg PO DAILY 09/24/21 05/04/22 History amlodipine 5 mg tablet 5 mg PO DAILY 04/04/22 05/04/22 History montelukast 10 mg tablet 10 mg PO DAILY 04/04/22 05/04/22 History eszopiclone 2 mg tablet (Lunesta) 2 mg PO ONCE #2 tabs 05/06/22 05/06/22 Rx Sleep Procedure This test was performed using the [employer] multiple channel system including EOG, EEG, submental EMG, EKG, nasal and oral airflow using thermistors and nasal pressure sensors, chest and abdominal belts for body position data, and pulse oximetry. Video monitoring was also performed. The study was scored using CMS guidelines. After the baseline portion the patient met criteria for a titration with an AHI Ten and desaturation 80%. She used a small [employer] Quattro fullface mask and humidity, initial pressure was 5 cm which was titrated per protocol to 6 cm. 7cm and 8 cm. At this pressure, spent 164.5 minutes in bed, 9.5 minutes awake, 129 minutes in non-REM and 26 minutes in REM. Sleep efficiency was 94%. There were 3 central apneas, 3 mixed apneas and 3 hypopneas. The AHI is 3.5 and the lowest saturation is 89%. Sleep Architecture Baseline The recording time is 146.2 minutes. Likely the total sleep is 119.5 minutes. Sleep efficiency is 81.7%. Sleep latency is 16.7 minutes. REM latency is 90 minutes. He had 10 minutes wake after sleep onset. Sleep architecture showed 4.2% stage 1 sleep, 67.4% stage 2 sleep, 25.5% stage 3 sleep 2.9% stage REM. Titration The total duration in bed is 326.4 minutes. The total amount of sleep is 302.5 minutes. Sleep efficiency is excellent 92.7%. Sleep latency 7 minutes. REM latency 61 minutes. She had 16.5 minutes of wake after sleep onset. sleep architecture shows 6.8% stage 1 sleep, 69.4% stage 2 sleep, 6.6
[2022-05-21 14:05] VITALS: BMI 25.1
== END 2022-05-15 06:10 | disposition home or self-care (01) ==
PROVIDERS: PCP Internal Medicine; Visit Provider Physician Assistant
DX: G47.10 Hypersomnia, unspecified (principal); G47.33 Obstructive sleep apnea (adult) (pediatric)
CPT/HCPCS: 95811

== ENCOUNTER 2022-08-27 07:18 | Outpatient (CLI) | payer OTHER, SELFPAY ==
[2022-08-27 07:55] LABS: Appearance Urine Clear (Clear); Bilirubin Urine Negative (Negative); Blood Urine Negative (Negative); Color Urine Yellow (Yellow); Glucose Urine UA Negative (Negative); Ketones Urine Negative (Negative); Leukocyte Esterase Ur 1+ LEU/UL (Negative); Nitrate Urine Positive (Negative); Protein Urine Negative (Negative); Specific Grav Ur 1.015 (1.001-1.035); Urobilinogen Urine 0.2 mg/dL (<2.0)
[2022-08-27 08:00] LABS: Bacteria Urine 1+ /hpf; Mucus Urine Rare /lpf; Squamous Epithelial Cell Urine Occasional /hpf (Few); WBC Urine 21-30 /hpf
[2022-08-27 08:01] LABS: Add Urine Microscopic? YES
[2022-08-27 08:31] LABS: Microalbumin Urine Random 6.2 mg/L (0-16.7)
[2022-08-27 08:50] LABS: Alanine Aminotransferase 22 U/L (6-35); Anion Gap 5 mmol/L (8-16); Blood Urea Nitrogen 13 mg/dL (7-17); Calcium 9.6 mg/dL (8.4-10.2); Carbon Dioxide 32 mmol/L (22-30); Chloride 102 mmol/L (98-107); Creatine Kinase 71 U/L (30-135); Estimated Glomerular Filt Rate > 60; Glucose 97 mg/dL (65-110); Sodium 139 mmol/L (137-145)
[2022-08-27 10:40] LABS: Creatinine Urine 78.3 mg/dL; MALB Creatinine Ratio 7.9 mg/g (0-30)
== END 2022-08-27 07:19 | disposition home or self-care (01) ==
PROVIDERS: PCP Internal Medicine; Visit Provider Internal Medicine
DX: N32.81 Overactive bladder (principal); E78.5 Hyperlipidemia, unspecified; I10 Essential (primary) hypertension; E87.1 Hypo-osmolality and hyponatremia
CPT/HCPCS: 36415; 80048; 81001; 82043; 82550; 84460; 87077; 87086; 87186

== ENCOUNTER 2023-03-22 08:06 | Outpatient (CLI) | payer OTHER, SELFPAY ==
[2023-03-22 08:31] LABS: Basophils Absolute Auto 0.1 K/mm3 (0.0-0.1); Basophils Percent Auto 1.4 % (0.2-1.2); Eosinophils Absolute Auto 0.2 K/mm3 (0-0.3); Eosinophils Percent Auto 3.8 % (0-4.4); Hematocrit 37.2 % (37.0-47.0); Hemoglobin 12.6 g/dL (12.0-15.0); Immature Granulocyte Absolute 0.01 K/mm3 (0.00-0.031); Immature Granulocyte Percent A 0.2 % (0-0.5); Lymphocytes Absolute Auto 2.09 K/mm3 (0.9-3.2); Lymphocytes Percent Auto 36.3 % (18.3-44.2); Mean Corpuscular HGB Conc 33.9 g/dl (32-36); Mean Corpuscular Volume 91.6 fl (80-100); Mean Platelet Volume 9.2 fl (7.4-10.4); Monocytes Absolute Auto 0.6 K/mm3 (0.1-0.6); Monocytes Percent Auto 11.1 % (2.6-8.5); Neutrophils Absolute Auto 2.7 K/mm3 (1.3-6.7); Neutrophils Percent Auto 47.2 % (45.5-73.1); Platelet Count Result 293 k/mm3 (150-375); Red Blood Count 4.06 M/mm3 (4.2-5.4); Red Cell Distribution Width 11.9 % (11.5-14.5); White Blood Count 5.8 K/mm3 (4.5-10.0)
[2023-03-22 08:37] LABS: Appearance Urine Clear (Clear); Bacteria Urine 4+ /hpf; Bilirubin Urine Negative (Negative); Blood Urine Negative (Negative); Color Urine Yellow (Yellow); Glucose Urine UA Negative (Negative); Ketones Urine Negative (Negative); Leukocyte Esterase Ur 2+ LEU/UL (Negative); Nitrate Urine Negative (Negative); Non Pathogenic Casts 0-2; Protein Urine Negative (Negative); RBC Urine 0-2 /hpf (0-2); Squamous Epithelial Cell Urine None seen /hpf (Few); Urobilinogen Urine 0.2 mg/dL (<2.0); WBC Urine 21-50 /hpf
[2023-03-22 08:38] LABS: Add Urine Microscopic? YES
[2023-03-22 08:42] LABS: Alanine Aminotransferase 44 U/L (6-35); Albumin Level 4.9 g/dL (3.5-5.1); Alkaline Phosphatase 75 U/L (38-126); Anion Gap 7 mmol/L (8-16); Aspartate Amino Transferase 63 U/L (14-36); Bilirubin,Total 0.6 mg/dL (0.2-1.3); Blood Urea Nitrogen 17 mg/dL (7-17); Calcium 9.7 mg/dL (8.4-10.2); Carbon Dioxide 31 mmol/L (22-30); Chloride 94 mmol/L (98-107); Cholesterol 235 mg/dL (0-200); Estimated Glomerular Filt Rate > 60; Glucose 106 mg/dL (65-110); HDL Direct 59 mg/dL; Potassium 4.2 mmol/L (3.4-5.0); Sodium 132 mmol/L (137-145); Triglycerides 257 mg/dL (<150)
[2023-03-22 08:53] LABS: LDL Cholesterol Direct 128 mg/dL
== END 2023-03-22 08:07 | disposition home or self-care (01) ==
LOC: ANHLAB 08:08
PROVIDERS: PCP Internal Medicine; Visit Provider Internal Medicine
DX: E78.5 Hyperlipidemia, unspecified (principal); I10 Essential (primary) hypertension; N32.81 Overactive bladder; N39.0 Urinary tract infection, site not specified
CPT/HCPCS: 36415; 80053; 80061; 81001; 85025; 87086; 87088

== ENCOUNTER 2023-04-17 17:07 | Emergency (ER) | payer OTHER, SELFPAY ==
--- NOTE | ~2023-04-17 | CT_ITS ---
EXAMINATION: CT abdomen pelvis w con DATE: 04/17/2023 18:49 INDICATION: Epigastric pain, post prandial TECHNIQUE: Computed tomography (CT) of the abdomen and pelvis was performed with 100 mL Omnipaque-350 intravenous contrast. Automated exposure control and iterative reconstruction technique were employe d. The dose-length product was 320.85 mGy-cm. COMPARISON: None. FINDINGS: Lower thorax: Dependent atelectasis. Minimal bibasilar scar/atelectasis. Liver: Normal. Biliary/Gallbladder: Gallbladder is normal. No bile duct dilation. Pancreas: No mass or duct dilation. Spleen: Normal. Adrenals:No mass. Kidneys: Bilateral subcentimeter hypodensities, too small to characterize but most likely represent c ysts. Right upper pole simple cyst. No suspicious mass, obstructing stone, or hydronephrosis. GI tract: Mild distal esophageal and gastric wall edema. No small or large bowel dilation. Mild colon ic wall edema, hepatic flexure to the transverse colon. Normal appendix. Diverticulosis without diver ticulitis. Mesentery/Peritoneum: No ascites, mass, or free air. Retroperitoneum: No mass. Atherosclerotic abdominal aortic and/or arterial calcifications. Pelvis: Distended urinary bladder with wall thickening. Absent uterus. Soft Tissues: Small uncomplicated fat-containing umbilical and bilateral inguinal hernias. Bones: No acute osseous finding. IMPRESSION: Mild esophagitis/gastritis. Mild hepatic flexure and transverse colonic wall edema, may reflect a component of colitis in the donald ropriate clinical context. Possible cystitis. Reviewed, dictated and finalized at location K. IMPRESSION: Mild esophagitis/gastritis. Mild hepatic flexure and transverse colonic wall edema, may reflect a component of colitis in the appropriate clinical context. Possible cystitis.
[2023-04-17 17:08] VITALS: BP 195/90; PULSE 91; RESP 18; TEMP 36.7; O2SAT 100
[2023-04-17 17:47] VITALS: BP 192/92; PULSE 85; RESP 18; O2SAT 97
--- NOTE | 2023-04-17 17:48 | ED.GENADULT ---
HPI - General Adult General Chief complaint: Abdominal Pain Stated complaint: abdominal pain Time Seen by Provider: 04/17/23 17:12 Source: patient Mode of arrival: ambulatory Limitations: no limitations History of Present Illness HPI narrative: This is a 63-year-old female with PMH of HLD, HTN who presents to the ED with chief complaint of epigastric pain starting abruptly today around 1130. Reports this started very shortly after eating a piece of pizza. Reports it is in the epigastrium and does not radiate. Reports it is a dull 6 out of 10 pain at baseline but occasionally will become sharp and stabbing. Denies any further radiation of pain. No endorses nausea that has since resolved. Reports 1 loose stool. Denies chest pain, shortness of breath, LOC, vomiting, fevers, chills, cough. Related Data Home Medications Medication Instructions Recorded Confirmed irbesartan 300 mg tablet 300 mg PO DAILY 04/14/21 10/19/22 metoprolol succinate 50 mg 50 mg PO DAILY 04/14/21 10/19/22 tablet,extended release 24 hr budesonide 32 mcg/actuation nasal 1 spray intranasal DAILY 09/24/21 10/19/22 spray oxybutynin chloride 15 mg 15 mg PO DAILY 09/24/21 10/19/22 tablet,extended release 24 hr rosuvastatin 10 mg tablet 10 mg PO DAILY 09/24/21 10/19/22 sertraline 25 mg tablet 25 mg PO DAILY 09/24/21 10/19/22 montelukast 10 mg tablet 10 mg PO DAILY 04/04/22 10/19/22 amlodipine 5 mg tablet 10 mg PO DAILY 10/19/22 10/19/22 Allergies Allergy/AdvReac Type Severity Reaction Status Date / Time clarithromycin AdvReac Unknown NAUSEA/VOMI Verified 04/17/23 17:48 TING levofloxacin AdvReac Unknown SEVERE ABD Verified 04/17/23 17:48 PAIN lisinopril AdvReac Unknown COUGH Verified 04/17/23 17:48 Review of Systems Review of Systems: All systems as dictated in HPI [facility] Past Medical History Medical History Depression Heart disease Hyperlipidemia Hypertension Left knee pain Overactive bladder Surgical History Surgical History H/O: hysterectomy No significant past surgical history Family History Family History Other Hypertension Social History Social History Smoking status: Never smoker Alcohol intake: current Substance use: never Living arrangements: with family Occupation/Education: occupation Gender identity (if verbalized by the patient): Female Exam Narrative: GENERAL: Well-appearing, well-nourished, and in no acute distress. HEAD: Normocephalic, atraumatic. EYES: PERRLA and EOMI. ENT: Nares clear, no rhinorrhea or epistaxis. Mucous membranes moist. Oropharynx without tonsillar hypertrophy exudate or other lesions. NECK: Supple. No adenopathy or masses. CHEST: No respiratory distress. Clear to auscultation. No wheezes rales or rhonchi HEART: Regular rate and rhythm. No murmur heard. Normal peripheral pulses. ABDOMEN: Epigastric tenderness is present. Soft, otherwise nontender, nondistended, normal active bowel sounds. Negative Leo sign, negative McBurney's point. Negative peritoneal signs. MSK: Normal range of motion. No edema. SKIN: Warm, dry, no rash. NEURO: Alert and oriented x3. No focal deficits. PSYCH: Normal mood and affect. Course Vital Signs Vital signs: Vital Signs Temperature 98.1 F 04/17/23 17:08 Pulse Rate 91 04/17/23 17:08 Respiratory Rate 18 04/17/23 17:08 Blood Pressure 195/90 H 04/17/23 17:08 Pulse Oximetry 100 04/17/23 17:08 Oxygen Delivery Room Air 04/17/23 17:08 Temperature 98.1 F 04/17/23 17:08 Pulse Rate 86 04/17/23 19:57 Respiratory Rate 20 04/17/23 19:57 Blood Pressure 153/68 H 04/17/23 19:57 Pulse Oximetry 99 04/17/23 19:57 Oxygen Delivery Room Air 04/17/23 17:08
--- NOTE | 2023-04-17 17:50 | ECG_ITS ---
Measurements Intervals [place] Rate: 73 P: 53 ID: [id number] QRS: 5 QRSD: 77 T: 37 QT: 375 QTc: 414 Interpretive Statements SINUS RHYTHM NORMAL ECG NO PREVIOUS ECG AVAILABLE FOR COMPARISON Electronically Signed On 04-18-2023 6:56:14 CDT by Tyree Lentz D.O.
[2023-04-17] MEDS: MORPHINE SULFATE (*CRX) 4 MG/ML INJ IV PUSH (17:54)
[2023-04-17] MEDS: SODIUM CHLORIDE 0.9% IV 1,000 ML 999 ML IV CONT (17:54)
[2023-04-17] MEDS: ONDANSETRON INJ 4 MG/2 ML VIAL IV PUSH (17:54)
[2023-04-17 18:13] LABS: Basophils Percent Auto 0.6 % (0.2-1.2); Eosinophils Absolute Auto 0.1 K/mm3 (0-0.3); Eosinophils Percent Auto 1.3 % (0-4.4); Hemoglobin 11.6 g/dL (12.0-15.0); Immature Granulocyte Absolute 0.03 K/mm3 (0.00-0.031); Immature Granulocyte Percent A 0.5 % (0-0.5); Lymphocytes Absolute Auto 1.74 K/mm3 (0.9-3.2); Lymphocytes Percent Auto 27.4 % (18.3-44.2); Mean Corpuscular HGB Conc 34.1 g/dl (32-36); Mean Corpuscular Hemoglobin 30.8 pg (26-34); Mean Corpuscular Volume 90.2 fl (80-100); Mean Platelet Volume 9.6 fl (7.4-10.4); Monocytes Absolute Auto 0.7 K/mm3 (0.1-0.6); Monocytes Percent Auto 10.6 % (2.6-8.5); Neutrophils Absolute Auto 3.8 K/mm3 (1.3-6.7); Neutrophils Percent Auto 59.6 % (45.5-73.1); Platelet Count Result 255 k/mm3 (150-375); Red Blood Count 3.77 M/mm3 (4.2-5.4); Red Cell Distribution Width 11.7 % (11.5-14.5); White Blood Count 6.3 K/mm3 (4.5-10.0)
[2023-04-17 18:23] LABS: Alanine Aminotransferase 27 U/L (6-35); Albumin Level 4.7 g/dL (3.5-5.1); Alkaline Phosphatase 80 U/L (38-126); Anion Gap 9 mmol/L (8-16); Aspartate Amino Transferase 42 U/L (14-36); Bilirubin,Total 0.5 mg/dL (0.2-1.3); Blood Urea Nitrogen 13 mg/dL (7-17); Calcium 9.7 mg/dL (8.4-10.2); Carbon Dioxide 28 mmol/L (22-30); Chloride 95 mmol/L (98-107); Estimated CRCL calculation 57 ml/min; Estimated Glomerular Filt Rate > 60; Glucose 108 mg/dL (65-110); Lipase 66 U/L (23-300); Sodium 132 mmol/L (137-145)
[2023-04-17 18:43] LABS: Lactic Acid Reflex 0.8 mmol/L (0.7-2.0)
--- NOTE | 2023-04-17 19:05 | PC.NURSE ---
This RN assumed care of patient. This Rn took patient report from Jailyn Mao.
[2023-04-17] MEDS: BELLADONNA ALK/PHENOB ELIX 10 ML, MAG HYDROX/ALUMINUM HYD/SIMETH 30 ML, LIDOCAINE HCL 2... PO (19:48)
[2023-04-17 19:57] VITALS: BP 153/68; PULSE 86; RESP 20; O2SAT 99
== END 2023-04-17 19:57 | disposition home or self-care (01) ==
PROVIDERS: Emergency Provider Physician Assistant; PCP Internal Medicine
DX: K29.70 Gastritis, unspecified, without bleeding (principal); E78.5 Hyperlipidemia, unspecified; I10 Essential (primary) hypertension
CPT/HCPCS: 36415; 74177; 80053; 83605; 83690; 85025; 93005; 96361; 96374; 96375; 99284; A9270; J2270; J2405; J7030; Q9967

== ENCOUNTER 2023-05-11 09:50 | Outpatient (CLI) | payer OTHER, SELFPAY | END 2023-05-11 09:51 | disposition home or self-care (01) | LOC: ANHAUDIO 09:50 | PROVIDERS: PCP Internal Medicine; Visit Provider Internal Medicine | DX: H93.19 Tinnitus, unspecified ear (principal); H90.3 Sensorineural hearing loss, bilateral | CPT/HCPCS: 92557; 92567 ==

== ENCOUNTER 2023-05-19 07:09 | Outpatient (CLI) | payer OTHER, SELFPAY ==
[2023-05-19 07:41] LABS: Alanine Aminotransferase 25 U/L (6-35); Albumin Level 4.7 g/dL (3.5-5.1); Alkaline Phosphatase 80 U/L (38-126); Aspartate Amino Transferase 46 U/L (14-36); Bilirubin,Total 0.5 mg/dL (0.2-1.3)
== END 2023-05-19 07:10 | disposition home or self-care (01) ==
LOC: ANHLAB 07:11
PROVIDERS: PCP Internal Medicine; Visit Provider Internal Medicine
DX: E78.5 Hyperlipidemia, unspecified (principal); R74.01 Elevation of levels of liver transaminase levels; I10 Essential (primary) hypertension
CPT/HCPCS: 36415; 80076

== ENCOUNTER 2023-05-19 16:38 | Outpatient (CLI) | payer OTHER, SELFPAY ==
[2023-05-19 17:29] LABS: INR 0.9; Prothrombin Time 12.5 Seconds (11.1-14.7)
[2023-05-19 19:10] LABS: Iron 90 ug/dL (37-170)
[2023-05-19 19:21] LABS: Percent Iron Saturation 25 % (20-50)
[2023-05-19 20:11] LABS: Hepatitis B Surface Antigen Negative (Negative)
[2023-05-19 20:16] LABS: HAV RESULT Negative (Negative); Hepatitis B Core IgM Result Negative (Negative)
[2023-05-19 20:28] LABS: Hepatitis B Surface Anti Res Negative; Hepatitis C Virus Antibody Negative (Negative)
[2023-05-22 06:33] LABS: GGT 23 U/L (3-65)
[2023-05-22 10:56] LABS: Hepatitis A Antibody Total Nonreactive (Nonreactive)
[2023-05-22 12:28] LABS: Actin Antibody (IgG) <20 U (<20)
[2023-05-23 22:18] LABS: Mitochondrial (M2) Ab (IgG) <=20.0 U (<=20.0)
[2023-05-24 21:53] LABS: LKM 1 Antibody <=20.0 U (<=20.0)
[2023-05-25 03:04] LABS: Ceruloplasmin 33 mg/dL (18-53)
[2023-05-25 17:11] LABS: Alpha Fetoprotein Tumor Marker 1.3 ng/mL (<6.1)
[2023-05-27 15:42] LABS: ALT 20 U/L (6-29); Alpha-2-Macroglobulin 203 mg/dL (106-279); Apolipoprotein A1 200 mg/dL (101-198); Fibrosis Score 0.07; Fibrosis Stage F0; GGT 22 U/L (3-65); Haptoglobin 124 mg/dL (43-212); Necroinflammat Act Grade A0; Total Bilirubin 0.2 mg/dL (0.2-1.2)
== END 2023-05-19 16:39 | disposition home or self-care (01) ==
LOC: ANHLAB 16:41
PROVIDERS: PCP Internal Medicine; Visit Provider Nurse Practitioner
DX: R74.8 Abnormal levels of other serum enzymes (principal); K74.60 Unspecified cirrhosis of liver
CPT/HCPCS: 36415; 80074; 80076; 81596; 82105; 82390; 82728; 82977; 83520; 83540; 83550; 85610; 86038; 86364; 86376; 86706; 86708

== ENCOUNTER 2023-05-25 02:00 | Day surgery (SDC) | payer OTHER, SELFPAY ==
[2023-05-13 11:12] VITALS: BMI 24.9
[2023-05-25 11:11] VITALS: BP 191/81; PULSE 79; RESP 18; TEMP 36.6; O2SAT 100
[2023-05-25] MEDS: LACTATED RINGERS 1,000 ML 150 ML IV CONT (11:14)
--- NOTE | 2023-05-25 11:28 | WPDANESEPPF ---
Anes - Initial Pre Proc Eval Procedure: Operation Date: 05/25/23 12:30 Proposed Procedures p Esophagogastroduodenoscopy & Colonoscopy - Long Diana MD Date/Time: 05/25/23 11:28 Surgeon: Long Diana MD Pre Op Diagnosis: Epigastric pain, Patient Data Age: 63 Gender: F Height: 1.6 m Weight: 61.9 kg Last Vital Signs Temp 97.9 F 05/25/23 11:11 Pulse 79 05/25/23 11:11 Resp 18 05/25/23 11:11 BP 191/81 H 05/25/23 11:11 Pulse Ox 100 05/25/23 11:11 O2 Del Method Room Air 05/25/23 11:11 Allergies Allergy/AdvReac Type Severity Reaction Status Date / Time clarithromycin AdvReac Unknown NAUSEA/VOMI Verified 05/25/23 11:10 TING levofloxacin AdvReac Unknown SEVERE ABD Verified 05/25/23 11:10 PAIN lisinopril AdvReac Unknown COUGH Verified 05/25/23 11:10 Home Medications Medication Instructions Recorded Confirmed Type irbesartan 300 mg tablet 300 mg PO DAILY 04/14/21 05/13/23 History metoprolol succinate 50 mg 50 mg PO DAILY 04/14/21 05/13/23 History tablet,extended release 24 hr budesonide 32 mcg/actuation nasal 1 spray intranasal DAILY 09/24/21 05/13/23 History spray oxybutynin chloride 15 mg 15 mg PO DAILY 09/24/21 05/13/23 History tablet,extended release 24 hr rosuvastatin 10 mg tablet 10 mg PO DAILY 09/24/21 05/13/23 History sertraline 25 mg tablet 25 mg PO DAILY 09/24/21 05/13/23 History montelukast 10 mg tablet 10 mg PO DAILY 04/04/22 05/13/23 History amlodipine 5 mg tablet 2.5 mg PO DAILY 05/05/23 05/13/23 History omeprazole 40 mg capsule,delayed 40 mg PO DAILY 05/05/23 05/13/23 History release Patient hx anesthesia problems: none Family hx anesthesia problems: none Results Review: All pre-operative results and documents have been reviewed as part of the pre-operative evaluation. [facility] Past Medical History Medical History (Updated 05/05/23 @ 16:09 by Michelle Griffiths APRN) Abnormal CT scan, colon Abnormal CT scan, stomach Chronic cough Depression Elevated liver enzymes Epigastric pain Heart disease Hyperlipidemia Hypertension Left knee pain Overactive bladder Throat clearing Surgical History Surgical History H/O: hysterectomy No significant past surgical history Family History Family History Other Hypertension Social History Social History Smoking status: Never smoker Tobacco type: cigarettes Alcohol intake: current Alcohol use details: 4-6 drinks monthly Substance use: never Substance use type: does not use Living arrangements: with family Occupation/Education: occupation Gender identity (if verbalized by the patient): Female Spiritual care concerns: No Anes - Eval Final PreProcedure Day of Procedure 05/25/23 11:28 Patient weight: normal Heart: regular rate and rhythm Lungs: clear to auscultation Airway: Mallampati scale class II Neurological: alert and oriented Last oral intake: >/= 8 hours ASA classification: III Emergent: no Anesthetic plan: proceed Anesthesia type and monitoring: general GIVS and standard monitoring Results Review: All pre-operative results and documents have been reviewed as part of the pre-operative evaluation. Informed Consent: The patient's anesthetic plan and its attendant risks and benefits were discussed with the patient/family/POA. Questions were solicited and answers provided to the satisfaction of the patient/family/POA.
--- NOTE | 2023-05-25 12:29 | WPDHPUPDATE1 ---
History and Physical Update Update Date/Time: 05/25/23 12:29 History and Physical has been reviewed, including an updated exam of the patient. There are NO changes in the patient's condition. Risks, benefits, and alternatives have been discussed and questions answered. Patient agrees to proceed with procedure.
--- NOTE | 2023-05-25 12:42 | SUR.OPER ---
egd ended at 1237 colonoscopy started at 1242.
[2023-05-25 12:55] VITALS: BP 89/44; PULSE 69; RESP 15; O2SAT 100
[2023-05-25 13:05] VITALS: BP 112/63; PULSE 65; RESP 13; O2SAT 100
[2023-05-25 13:15] VITALS: BP 128/69; PULSE 66; RESP 15; O2SAT 100
== END 2023-05-25 13:28 | disposition home or self-care (01) ==
PROVIDERS: PCP Internal Medicine; Visit Provider Internal Medicine Gastroenterology
PROC: 0DJ08ZZ Inspection of Upper Intestinal Tract, Via Natural or Artificial Opening Endoscopic (ICD-10-PCS; CPT 43235; principal; 2023-05-25 12:30)
DX: Z12.11 Encounter for screening for malignant neoplasm of colon (principal); D12.3 Benign neoplasm of transverse colon; R10.13 Epigastric pain; I11.9 Hypertensive heart disease without heart failure; E78.5 Hyperlipidemia, unspecified; F32.A Depression, unspecified; N32.81 Overactive bladder
CPT/HCPCS: 45385; 43239; 88305; J2704; J7120

== ENCOUNTER 2023-06-04 08:01 | Outpatient (CLI) | payer OTHER, SELFPAY ==
--- NOTE | ~2023-06-04 | US_ITS ---
US abdomen limited INDICATION: Abnormal serum enzyme levels. PROCEDURE: Realtime right upper abdominal ultrasound. COMPARISON: No prior studies for comparison. FINDINGS: The pancreas is normal without focal mass or pancreatic ductal dilation. Liver echotexture is normal without focal mass or intrahepatic biliary dilatation. There is normal directional flow i n the portal vein. The gallbladder is normal without stones, gallbladder wall thickening or pericholecystic fluid. Comm on bile duct measures 3.7 mm. No sonographic Leo's sign. IMPRESSION: 1: Normal limited abdominal ultrasound. Reviewed, dictated and finalized at location B.
== END 2023-06-04 08:02 | disposition home or self-care (01) ==
PROVIDERS: PCP Internal Medicine; Visit Provider Nurse Practitioner
DX: R74.8 Abnormal levels of other serum enzymes (principal)
CPT/HCPCS: 76705

== ENCOUNTER 2023-09-14 16:35 | Outpatient (CLI) | payer OTHER, SELFPAY ==
--- NOTE | ~2023-09-14 | CT_ITS ---
EXAMINATION: CT sinus wo con DATE: 09/14/2023 17:09 INDICATION: Recurrent sinusitis TECHNIQUE: Computed tomography (CT) of the paranasal sinuses was performed without intravenous contra st. The dose-length product (DLP) was 339.79 mGy-cm. Iterative reconstruction was used. COMPARISON: None FINDINGS: There is normal development and pneumatization of the paranasal sinuses. There is mild muco angie thickening of the ethmoidal air cells. The frontal, sphenoid, and maxillary sinuses are clear. Th e bilateral ostiomeatal complexes are patent. Visualized soft tissues are unremarkable. IMPRESSION: 1. Mild mucosal thickening of the ethmoidal air cells. Reviewed, dictated and finalized at location B. AL TESTER
--- NOTE | ~2023-09-14 | XR_ITS ---
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 RESULT: Lines, tubes, and devices: None. Lungs and pleura: Clear. Cardiomediastinal silhouette: Stable. Other: No acute osseous or upper abdominal finding. IMPRESSION: No acute cardiopulmonary process. Reviewed, dictated and finalized at location K. EL TRUCK CRANE OPERATOR
== END 2023-09-14 16:36 | disposition home or self-care (01) ==
LOC: ANHIMG 16:37
PROVIDERS: PCP Internal Medicine
DX: J32.9 Chronic sinusitis, unspecified (principal); R05.3 Chronic cough
CPT/HCPCS: 70486; 71046

== ENCOUNTER 2023-09-22 07:38 | Outpatient (CLI) | payer OTHER, SELFPAY ==
[2023-09-22 08:21] LABS: Basophils Absolute Auto 0.1 K/mm3 (0.0-0.1); Basophils Percent Auto 0.9 % (0.2-1.2); Eosinophils Absolute Auto 0.5 K/mm3 (0-0.3); Eosinophils Percent Auto 7.9 % (0-4.4); Hematocrit 39.2 % (37.0-47.0); Hemoglobin 12.8 g/dL (12.0-15.0); Immature Granulocyte Absolute 0.02 K/mm3 (0.00-0.031); Immature Granulocyte Percent A 0.3 % (0-0.5); Lymphocytes Absolute Auto 2.28 K/mm3 (0.9-3.2); Lymphocytes Percent Auto 33.9 % (18.3-44.2); Mean Corpuscular HGB Conc 32.7 g/dl (32-36); Mean Corpuscular Volume 91.8 fl (80-100); Mean Platelet Volume 9.9 fl (7.4-10.4); Monocytes Absolute Auto 0.6 K/mm3 (0.1-0.6); Monocytes Percent Auto 9.1 % (2.6-8.5); Neutrophils Absolute Auto 3.2 K/mm3 (1.3-6.7); Neutrophils Percent Auto 47.9 % (45.5-73.1); Platelet Count Result 314 k/mm3 (150-375); Red Blood Count 4.27 M/mm3 (4.2-5.4); Red Cell Distribution Width 11.9 % (11.5-14.5); White Blood Count 6.7 K/mm3 (4.5-10.0)
[2023-09-22 08:28] LABS: Alanine Aminotransferase 15 U/L (6-35); Albumin Level 4.8 g/dL (3.5-5.1); Alkaline Phosphatase 95 U/L (38-126); Anion Gap 7 mmol/L (8-16); Aspartate Amino Transferase 33 U/L (14-36); Bilirubin,Total 0.7 mg/dL (0.2-1.3); Blood Urea Nitrogen 16 mg/dL (7-17); Calcium 10.2 mg/dL (8.4-10.2); Carbon Dioxide 30 mmol/L (22-30); Chloride 98 mmol/L (98-107); Cholesterol 255 mg/dL (0-200); Estimated Glomerular Filt Rate > 60; Glucose 106 mg/dL (65-110); HDL Direct 59 mg/dL; Potassium 4.3 mmol/L (3.4-5.0); Sodium 135 mmol/L (137-145); Triglycerides 230 mg/dL (<150)
[2023-09-22 08:30] LABS: Hemoglobin A1C 6.2 % (<5.7)
[2023-09-22 08:39] LABS: LDL Cholesterol Direct 139 mg/dL
== END 2023-09-22 07:39 | disposition home or self-care (01) ==
LOC: ANHLAB 07:41
PROVIDERS: PCP Internal Medicine; Visit Provider Internal Medicine
DX: E78.5 Hyperlipidemia, unspecified (principal); I10 Essential (primary) hypertension; K21.00 Gastro-esophageal reflux disease with esophagitis, without bleeding
CPT/HCPCS: 36415; 80053; 80061; 83036; 84443; 85025

== ENCOUNTER 2024-04-25 07:10 | Outpatient (CLI) | payer OTHER, SELFPAY ==
[2024-04-25 08:42] LABS: Alanine Aminotransferase 16 U/L (6-35); Albumin Level 4.9 g/dL (3.5-5.1); Alkaline Phosphatase 81 U/L (38-126); Anion Gap 13 mmol/L (4-12); Aspartate Amino Transferase 34 U/L (14-36); Bilirubin,Total 0.6 mg/dL (0.2-1.3); Blood Urea Nitrogen 17 mg/dL (7-17); Calcium 9.8 mg/dL (8.4-10.2); Carbon Dioxide 28 mmol/L (22-30); Chloride 97 mmol/L (98-107); Cholesterol 241 mg/dL (0-200); Estimated Glomerular Filt Rate > 60; Glucose 105 mg/dL (65-110); HDL Direct 65 mg/dL; Potassium 4.4 mmol/L (3.4-5.0); Sodium 138 mmol/L (137-145); Triglycerides 206 mg/dL (<150)
[2024-04-25 08:54] LABS: LDL Cholesterol Direct 122 mg/dL
== END 2024-04-25 07:11 | disposition home or self-care (01) ==
LOC: ANHLAB 07:11
PROVIDERS: PCP Internal Medicine; Visit Provider Internal Medicine
DX: E78.5 Hyperlipidemia, unspecified (principal); I10 Essential (primary) hypertension; R73.09 Other abnormal glucose
CPT/HCPCS: 36415; 80053; 80061; 83036

== ENCOUNTER 2024-09-11 09:28 | Emergency (ER) | payer OTHER, SELFPAY ==
[2024-09-11 09:44] VITALS: BP 144/68; PULSE 84; RESP 20; TEMP 37.2; O2SAT 99
--- OUTSIDE RECORDS SUMMARY | 2024-09-11 10:03 | XMS_ITS | Encounter Summary ---
Author Organization [facility] Facility Care Team Providers Care Caustic Preparer Name Role Phone Cuca Brunson MD Primary Care Provider + [phone] Unknown, Notinfile Primary Care Provider Unavail able Cuca Brunson MD Primary Care Provider + [phone] Long Stern MD Unavailable + Encounter Details Date Type Department Care Team (Latest Contact Info) Description 06/06/2015 Orders Only [facility] CLINCONV ProviderCelso MD [address] [place] [id number] Social History Tobacco Use Types Packs/Day Years Used Date Smoking Tobacco: Never Assessed Comments Unknown Sex and Gender Information Value Date Recorded Sex Assigned at Not on file Legal Sex Female 4:00 AM FACILITY COORDINATOR Gender Identity Female 06/02/2020 7:58 PM CDT Sexual Orientation Straight 06/02/2020 7: 58 PM CDT documented as of this encounter Plan of Treatment Not on file documented as of this encounter Procedures Procedure Name Priority Date/Time Associated Diagnosis Comments SCAN - LABS 06/17/2016 12:00 AM FACILITY COORDINATOR documented in this encounter Results * SCAN - LABS (06/17/2016 12:00 AM FACILITY COORDINATOR) Narrative 06/17/2016 12:00 AM FACILITY COORDINATOR Ordered by an unspecified provider. Historical Provider Final Res ult documented in this encounter Visit Diagnoses Not on filedocumented in this encounter Care Teams Caustic Preparer Relationship Specialty Start Date End Date Cuca Brunson MD [address] [place] [address] PCP - General 03/31/17 03/31/17 Unknown, Notinfile PCP - General 04/01/17 04/06/17 Cuca Brunson MD [address] [place] [address] PCP - General 04/07/17 Long Stern MD [address] [place] [address] Referring Physician Gastroenterology 05/31/23 documented as of this encounter
--- OUTSIDE RECORDS SUMMARY | 2024-09-11 10:03 | XMS_ITS | Encounter Summary ---
Author Organization [facility] Facility Care Team Providers Care Coremaker Experimental Name Role Phone Cuca Brunson MD Primary Care Provider + [phone] Unknown, Notinfile Primary Care Provider Unavail able Cuca Brunson MD Primary Care Provider + [phone] Long Stern MD Unavailable + Encounter Details Date Type Department Care Team (Latest Contact Info) Description 06/16/2016 Orders Only [facility] CLINCONV ProviderCelso MD [address] [place], [place] [id number] Social History Tobacco Use Types Packs/Day Years Used Date Smoking Tobacco: Never Alcohol Use Standard Drinks/Week Comments Yes 0 (1 standard drink = 0.6 oz pur e alcohol) Comments Unknown Sex and Gender Information Value Date Recorded Sex Assigned at Not on file Legal Sex Female 4:00 AM TANK ASSEMBLER Gender Identity Female 06/02/2020 7:58 PM CDT Sexual Orientation Straight 06/02/2020 7: 58 PM CDT documented as of this encounter Plan of Treatment Not on file documented as of this encounter Procedures Procedure Name Priority Date/Time Associated Diagnosis Comments SCAN - LABS 06/22/2016 12:00 AM TANK ASSEMBLER SCAN - LABS 06/17/2016 12:00 AM TANK ASSEMBLER documented in this encounter Results * SCAN - LABS (06/22/2016 12:00 AM TANK ASSEMBLER) Narrative 06/22/2016 12:00 AM TANK ASSEMBLER Ordered by an unspecified provider. us Historical Provider Final Res ult * SCAN - LABS (06/17/2016 12:00 AM TANK ASSEMBLER) Narrative 06/17/2016 12:00 AM TANK ASSEMBLER Ordered by an unspecified provider. us Historical Provider Final Res ult documented in this encounter Visit Diagnoses Not on filedocumented in this encounter Care Teams Coremaker Experimental Relationship Specialty Start Date End Date Cuca Brunson MD [address] [place] [address] PCP - General 03/31/17 03/31/17 Unknown, Notinfile PCP - General 04/01/17 04/06/17 Cuca Brunson MD [address] [place] [address] PCP - General 04/07/17 Long Stern MD [address] [place] [address] Referring Physician Gastroenterology 05/31/23 documented as of this encounter
--- OUTSIDE RECORDS SUMMARY | 2024-09-11 10:03 | XMS_ITS | Encounter Summary ---
Author Organization [facility] Facility Care Team Providers Care Aircraft Part Assembler Name Role Phone Cuca Brunson MD Primary Care Provider + [phone] Long Stern MD Unavailable + Encounter Details Date Type Department Care Team (Latest Contact Info) Description 06/14/2017 Orders Only [facility] CLINCONV ProviderCelso MD [address] [place] [address] Social History Tobacco Use Types Packs/Day Years Used Date Smoking Tobacco: Never Alcohol Use Standard Drinks/Week Comments Yes 0 (1 standard drink = 0.6 oz pur e alcohol) Comments Unknown Sex and Gender Information Value Date Recorded Sex Assigned at Not on file Legal Sex Female 4:00 AM MILITARY LOGISTICS SPECIALIST Gender Identity Female 06/02/2020 7:58 PM CDT Sexual Orientation Straight 06/02/2020 7: 58 PM CDT documented as of this encounter Plan of Treatment Not on file documented as of this encounter Procedures Procedure Name Priority Date/Time Associated Diagnosis Comments SCAN - LABS 06/18/2017 12:00 AM MILITARY LOGISTICS SPECIALIST SCAN - LABS 06/16/2017 12:00 AM MILITARY LOGISTICS SPECIALIST documented in this encounter Results * SCAN - LABS (06/18/2017 12:00 AM MILITARY LOGISTICS SPECIALIST) Narrative 06/18/2017 12:00 AM MILITARY LOGISTICS SPECIALIST Ordered by an unspecified provider. Historical Provider Final Res ult * SCAN - LABS (06/16/2017 12:00 AM MILITARY LOGISTICS SPECIALIST) Narrative 06/16/2017 12:00 AM MILITARY LOGISTICS SPECIALIST Ordered by an unspecified provider. us Historical Provider Final Res ult documented in this encounter Visit Diagnoses Not on filedocumented in this encounter Care Teams Aircraft Part Assembler Relationship Specialty Start Date End Date Cuca Brunson MD [address] [place] [id number] PCP - General 04/07/17 Long Stern MD [address] [place] [address] Referring Physician Gastroenterology 05/31/23 documented as of this encounter
--- OUTSIDE RECORDS SUMMARY | 2024-09-11 10:03 | XMS_ITS | Encounter Summary ---
Author Organization [facility] Facility Care Team Providers Care Meat Inspector Name Role Phone Cuca Brunson MD Primary Care Provider + [phone] Unknown, Notinfile Primary Care Provider Unavail able Cuca Brunson MD Primary Care Provider + [phone] Long Stern MD Unavailable + Encounter Details Date Type Department Care Team (Latest Contact Info) Description 12/18/2016 Orders Only [facility] CLINCONV ProviderCelso MD [address] [place] [address] Social History Tobacco Use Types Packs/Day Years Used Date Smoking Tobacco: Never Alcohol Use Standard Drinks/Week Comments Yes 0 (1 standard drink = 0.6 oz pur e alcohol) Comments Unknown Sex and Gender Information Value Date Recorded Sex Assigned at Not on file Legal Sex Female 4:00 AM FINISH SAW OPERATOR Gender Identity Female 06/02/2020 7:58 PM CDT Sexual Orientation Straight 06/02/2020 7: 58 PM CDT documented as of this encounter Plan of Treatment Not on file documented as of this encounter Procedures Procedure Name Priority Date/Time Associated Diagnosis Comments COLONOSCOPY - SCAN 12/18/2016 12 :00 AM CDT documented in this encounter Results * COLONOSCOPY - SCAN (12/18/2016 12:00 AM CDT) Narrative 12/18/2016 12:00 AM CDT Ordered by an unspecified provider. Historical Provider Final Res ult documented in this encounter Visit Diagnoses Not on filedocumented in this encounter Care Teams Meat Inspector Relationship Specialty Start Date End Date Cuca Brunson MD [address] [place] [id number] PCP - General 03/31/17 03/31/17 Unknown, Notinfile PCP - General 04/01/17 04/06/17 Cuca Brnuson MD [address] [place] [address] PCP - General 04/07/17 Long Stern MD [address] [place] [address] Referring Physician Gastroenterology 05/31/23 documented as of this encounter
--- OUTSIDE RECORDS SUMMARY | 2024-09-11 10:03 | XMS_ITS | Encounter Summary ---
Author Organization [facility] Facility Care Team Providers Care Conveyor Tender Name Role Phone Cuca Brunson MD Primary Care Provider + [phone] Long Stern MD Unavailable + Encounter Details Date Type Department Care Team (Latest Contact Info) Description 04/06/2018 Orders Only [facility] CLINCONV ProviderCelso MD [address] [place] [address] Social History Tobacco Use Types Packs/Day Years Used Date Smoking Tobacco: Never Smokeless Tobacco: Never Alcohol Use Standard Drinks/Week Comments Yes 0 (1 standard drink = 0.6 oz pur e alcohol) Comments No Sex and Gender Information Value Date Recorded Sex Assigned at Not on file Legal Sex Female 4:00 AM SHOE STOCK ASSOCIATE Gender Identity Female 06/02/2020 7:58 PM CDT Sexual Orientation Straight 06/02/2020 7: 58 PM CDT documented as of this encounter Plan of Treatment Not on file documented as of this encounter Procedures Procedure Name Priority Date/Time Associated Diagnosis Comments COLONOSCOPY - SCAN 04/06/2018 12 :00 AM CDT documented in this encounter Results * COLONOSCOPY - SCAN (04/06/2018 12:00 AM CDT) Narrative 04/06/2018 12:00 AM CDT Ordered by an unspecified provider. us Historical Provider Final Res ult documented in this encounter Visit Diagnoses Not on filedocumented in this encounter Care Teams Conveyor Tender Relationship Specialty Start Date End Date Cuca Brunson MD [address] [place] [address] PCP - General 04/07/17 Long Stern MD [address] [facility] [address] [place] [address] Referring Physician Gastroenterology 05/31/23 documented as of this encounter
--- OUTSIDE RECORDS SUMMARY | 2024-09-11 10:03 | XMS_ITS | Encounter Summary ---
Author Organization [facility] Facility Care Team Providers Care Aircraft Machinist Name Role Phone Cuca Brunson MD Primary Care Provider + [phone] Unknown, Notinfile Primary Care Provider Unavail able Cuca Brunson MD Primary Care Provider + [phone] Long Stern MD Unavailable + Encounter Details Date Type Department Care Team (Latest Contact Info) Description 12/15/2016 Orders Only [facility] CLINCONV ProviderCelso MD [address] [place] [address] Social History Tobacco Use Types Packs/Day Years Used Date Smoking Tobacco: Never Alcohol Use Standard Drinks/Week Comments Yes 0 (1 standard drink = 0.6 oz pur e alcohol) Comments Unknown Sex and Gender Information Value Date Recorded Sex Assigned at Not on file Legal Sex Female 4:00 AM CAKE CUTTER MACHINE Gender Identity Female 06/02/2020 7:58 PM CDT Sexual Orientation Straight 06/02/2020 7: 58 PM CDT documented as of this encounter Plan of Treatment Not on file documented as of this encounter Procedures Procedure Name Priority Date/Time Associated Diagnosis Comments SCAN - LABS 12/18/2016 12:00 AM CDT documented in this encounter Results * SCAN - LABS (12/18/2016 12:00 AM CDT) Narrative 12/18/2016 12:00 AM CDT Ordered by an unspecified provider. Historical Provider Final Res ult documented in this encounter Visit Diagnoses Not on filedocumented in this encounter Care Teams Aircraft Machinist Relationship Specialty Start Date End Date Cuca Brunson MD [address] [place] [address] PCP - General 03/31/17 03/31/17 Unknown, Notinfile PCP - General 04/01/17 04/06/17 Cuca Brunson MD [address] [place] [address] PCP - General 04/07/17 Long Stern MD [address] [place] [address] Referring Physician Gastroenterology 05/31/23 documented as of this encounter
--- OUTSIDE RECORDS SUMMARY | 2024-09-11 10:04 | XMS_ITS | Encounter Summary ---
Author Organization [facility] Healthcare Address [address] [place] [address] Care Team Providers Care Student Ministries Director Name Role Phone Cuca Brunson MD Primary Care Provider [phone] Long Stern MD Unavailable + Encounter Details Date Type Department Care Team (Late st Contact Info) Description 09/22/2023 Orders Only [facility] Health Information Management [address] [place] [id number] Scanning, Provider Social History Tobacco Use Types Packs/Day Years Used Date Smoking Tobacco: Former Cigarettes 0.3 3 Smokeless Tobacco: Never Comments:I quit before I got 43 years. Alcohol Use Standard Drinks/Week Comments Yes 0 (1 standard drink = 0.6 oz pur e alcohol) AUDIT-C Answer Date Recorded Q1: How often do you have a drink containing alc ohol? 2-3 times a week 02/23/2022 Q2: How many drinks containi ng alcohol do you have on a typical day when you are drinking? 1 or 2 02/23/2022 Q3: How often do you have si x or more drinks on one occasion? 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 Gender Identity Female 06/02/2020 7:58 PM CDT Sexual Orientation Straight 06/02/2020 7: 58 PM CDT documented as of this encounter Plan of Treatment Not on file documented as of this encounter Procedures Procedure Name Priority Date/Time Associated Diagnosis Comments SCAN - LABS 09/22/2023 documented in this encounter Results * SCAN - LABS (09/22/2023) us Provider Scanning Final Result documented in this encounter Visit Diagnoses Not on filedocumented in this encounter Care Teams Student Ministries Director Relationship Specialty Start Date End Date Cuca Brunson MD [address] [place] [id number] PCP - General 04/07/17 Long Stern MD [address] [place] [address] Referring Physician Gastroenterology 05/31/23 documented as of this encounter
--- OUTSIDE RECORDS SUMMARY | 2024-09-11 10:04 | XMS_ITS | Referral Summary ---
Author Organization [facility] Address [address] [place] [address] Care Team Providers Care Biomedical Engineering Technologist Name Role Phone Cuca Brunson MD Primary Care Provider [phone] Long Stern MD Unavailable + Encounters Date Type Department Care Team Description 07/19/2024 Orders Only [facility] [address] [place] [address] Floor [address] [place] [address] Yvette Nails NP Screening mammogram, encounter for (Primary Dx); At high risk for breast cancer 07/18/2024 Telephone [facility] [place] [address] Esmer Segovia NP 07/18/2024 8:39 AM ABRASIVE GRINDER - 07/18/2024 11:59 PM ABRASIVE GRINDER Hospital Encounter [facility] [address] [place] [id number] Inconclusive mammogram Discharge Disposition: Discharge to home or self care 07/13/2024 10:04 AM ABRASIVE GRINDER - 07/13/2024 11:59 PM ABRASIVE GRINDER Hospital Encounter [facility] [place] [facility] [address] [place] [address] Floor 8 [place] [address] At high risk for breast cancer Discharge Disposition: Discharge to home or self care 07/13/2024 10:45 AM ABRASIVE GRINDER Office Visit [facility] [address] [facility] Floor 8 [place] [address] Esmer Segovia, ISAC Inverted nipple (Primary Dx); Screening mammogram, encounter for; Heterogeneously dense tissue of both breasts on mammography from Last 3 Months Allergies Active Allergy Reactions Criticality Noted Date Comments Clarithromycin Vomiting Low 11/29/2018 vomitting Levofloxacin Stomach upset Low 04/06/2018 Lisinopril Cough Low 11/29/2018 cough Medications cholecalciferol (VITAMIN D3) 2,000 unit tablet take 1 by Oral route 2 times every day 0 0 6 Active chlorpheniramine maleate (ALLERGY RELIEF,CHLORPHENI RAMN, ORAL) Take by mouth Active montelukast (SINGULAIR) 10 mg tablet TAKE 1 TABLET BY MOUTH AT NIGHT 90 tablet 3 4 Active guaiFENesin ER (MUCINEX) 600 mg 12 hr tablet Take 2 tablets (1,200 mg total) by mouth 2 (two) times a day Active cetirizine (ZyrTEC) 10 mg tablet Take 1 tablet (10 mg total) by mouth daily Active oxyBUTYnin XL (DITROPAN XL) 15 mg 24 hr tabletIndications :OAB (overactive bladder) TAKE 1 TABLET BY MOUTH DAILY 90 tablet 3 4 Active amLODIPine (NORVASC) 2.5 mg tablet TAKE 1 TABLET(2.5 MG) BY MOUTH DAILY 90 tablet 1 4 Active sertraline (ZOLOFT) 50 mg tablet TAKE 1 TABLET BY MOUTH DAILY 90 tablet 3 4 Active metoprolol XL (TOPROL-XL) 50 mg extended release tabletIndications :Essential hypertension TAKE 1 TABLET(50 MG) BY MOUTH EVERY NIGHT 90 tablet 1 4 Active omeprazole (PriLOSEC) 20 mg capsule Take 1 capsule (20 mg total) by mouth daily 90 capsule 3 4 06/01/20 25 Active irbesartan (AVAPRO) 300 mg tablet TAKE 1 TABLET BY MOUTH DAILY 90 tablet 1 4 Active budesonide (RHINOCORT AQUA) 32 mcg/actuation nasal spray SHAKE LIQUID AND USE 1 SPRAY IN EACH NOSTRIL DAILY 8.43 mL 1 4 Active rosuvastatin (CRESTOR) 10 mg tablet TAKE 1 TABLET BY MOUTH DAILY 90 tablet 3 4 Active Active Problems Problem Noted Date Diagnosed Date Abnormal glucose 09/28/2023 Overview (09/28/2023): 09/2023 A1c 6% Assessment & Plan (09/28/2023 3:13 PM ABRASIVE GRINDER): Ff no sugar diet Cont to walk on the treadmill Monitor a1c Gastroesophageal reflux disease 05/31/2023 Overview (05/03/2024): EGD 05/25/2023 Dr Chinmay Tafoya, normal GERD causes cough on pantoprazole Assessment & Plan (05/03/2024 8:08 AM CDT): EGD 05/25/2023 Dr Chinmay Tafoya, normal GERD causes cough on pantoprazole Cont on rx pantoprazole from pulmo Dr Santiago Hypertension, uncontrolled 04/22/2023 Acute superficial gastritis without hemorrhage 0 04/22/2023 Gastroenteritis and colitis, viral 04/22/2023 SOB (shortness of breath) on exertion 09/07/2022 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 09/03/2022 Overview (09/03/2022): Low dose sertraline at HS Assessment & Plan (05/03/2024 8:09 AM CDT): Doing well on low dose Rx sertraline and wants to continue Stable on rx zoloft Assessment & Plan (09/28/2023 3:05 PM ABRASIVE GRINDER): Doing well on low dose Rx sertraline and wants to continue stable Assessment & Plan (03/22/2023 7:29 PM CDT): Doing well on Rx sertraline and wants to continue Might benefit from change to cymbalta if weight gain continues or if it may help with her stress incont Assessment & Plan (09/03/2022 8:27 AM ABRASIVE GRINDER): Doing well on sertraline and wants to continue Might benefit from change to cymbalta if weight gain continues or if it may help with her stress incont Frequent UTI 09/03/2022 Assessment & Plan (09/03/2022 8:34 AM ABRASIVE GRINDER): Finish current abx Hydrate Hold oxybutinin while on antibiotic Refer to Dr Nabeel Harp Transaminitis 03/04/2021 Assessment & Plan (03/23/2023 11:05 AM CDT): Remain on low dose crestor Avoid tylenol Limit etoh intake Low fat diet to avoid fatty liver disease Repeat LFT in 8 wks Assessment & Plan (03/04/2021 9:07 AM CDT): On crestor Chol better Baseline did not triple so ok to cont statin therapy Avoid otc herbal supplements asymptomatic Trend Was 52 now 46, almost normalized Repeat cmp in 2 mos BMI 25.0-25.9,adult 08/23/2019 Assessment & Plan (03/04/2021 8:57 AM CDT): Better down in weight, intentional Assessment & Plan (08/23/2019 4:25 PM ABRASIVE GRINDER): Work on wt loss Exercise regularly Annual physical exam 08/23/2019 Assessment & Plan (05/03/2024 8:05 AM CDT): Dexa scan due Flu vaccine due Reviewed previous labs and diagnostic test results. Chronic medical problems evaluated and management plans discussed with the patient. Prescription medications, supplements, vitamins and immunizations reviewed. Wear seatbelts. Use sunscreen. Discussed healthy diet and disease prevention. Recommend moving towards a plant based diet. Discussed importance of scheduling recommended screening tests. Discussed importance of regular physical examinations for health maintenance. Discussed importance of a living will, advanced directives and establishing or updating healthcare power of contracts attorney document and providing our office with a copy. Assessment & Plan (03/22/2023 7:31 PM CDT): Prevnar 20 today Up-to-date on preventive care Exercise on a regular basis Work on maintaining normal body weight Assessment & Plan (02/22/2022 4:53 PM CDT): Reviewed previous labs and diagnostic test results. Chronic medical problems evaluated and management plans discussed with the patient. Prescription medications, supplements, vitamins and immunizations reviewed. Wear seatbelts. Use sunscreen. Discussed healthy diet and disease prevention. Recommend moving towards a plant based diet. Discussed importance of scheduling recommended screening tests. Discussed importance of regular physical examinations for health maintenance. Assessment & Plan (08/28/2020 3:59 PM ABRASIVE GRINDER): Wear sunscreen with SPF over 50 while outdoors. Wear sun protective head wear and clothing if planning to stay outdoors exposed to the direct sunlight for extended hours. Wear seatbelts while in a vehicle. Do not TEXT and DRIVE Do not DRINK and DRIVE. Drink responsibly Follow a heart healthy diet and lifestyle. Consume 5-7 servings of fruits and vegetables a day.. Such as the Mediterranean Diet. Maintain/attain normal body weight. Exercise regularly, minimum 20 mins 3 days a week to reduce cardiovascular healthy. Maintain good sleep schedule and sleep habits I recommend that all patients follow a diet that is high in fruits and vegetables and low in processed foods such as sugar and foods that are made with white flour. I recommend using beneficial fats such as olive oil, nuts, seeds and berries and avoiding saturated animal fats. Please stay physically active to the extent that you are physically able to. Test results: if you have not received communication about test results within 7 days of the test being performed, please contact the office. Assessment & Plan (08/23/2019 4:23 PM ABRASIVE GRINDER): Wear sunscreen while outdoors. Wear seatbelts while in a vehicle. Do not text and drive. Follow a heart healthy diet and lifestyle. Consume 5-7 servings of fruits and vegetables a day. Maintain/attain normal body weight. Maintain good sleep schedule and sleep habits. I recommend that all patients follow a diet that is high in fruits and vegetables and low in processed foods such as sugar and foods that are made with white flour. I recommend using beneficial fats such as olive oil, nuts, seeds and berries and avoiding saturated animal fats. Please stay physically active to the extent that you are able. Test results: if you have not received communication about test results within 7 days of the test being performed, please contact the office. Shingles vaccine 1st dose today Return in 2-6mos for 2nd dose Inverted nipple 04/06/2018 Chronic allergic rhinitis due to food 06/16/2017 Overview (02/17/2019): [place], etc (dx by allergy testing, dr Ramirez), maintained on NS and eye gtts OAB (overactive bladder) 12/16/2016 Overview (02/20/2019): On oxybutinin Assessment & Plan (05/03/2024 8:09 AM CDT): Not an issue at this time Cont to take the rx oxybutinin med, is helping stable Assessment & Plan (09/28/2023 3:05 PM ABRASIVE GRINDER): Not an issue Cont to take the oxybutinin med, is helping stable Assessment & Plan (03/22/2023 7:29 PM CDT): Weak pelvic floor Cont prescribed oxybutinin Not been to a urologist Prone to UTIs Has been referred at the last visit to the urologist for recurrent UTIs Assessment & Plan (09/03/2022 8:24 AM ABRASIVE GRINDER): Weak pelvic floor Cont oxybutinin Not been to a urologist Prone to UTIs Refer to uro Assessment & Plan (02/22/2022 4:53 PM CDT): Cont on oxybutinin therapy Pelvic floor exercises Assessment & Plan (03/04/2021 8:59 AM CDT): Cont on oxybutinin therapy Strong odor lately do a urine dip to rule out infection Assessment & Plan (08/28/2020 3:54 PM ABRASIVE GRINDER): Cont on oxybutinin Wait on urine culture results from [place] Assessment & Plan (02/20/2019 4:35 PM CDT): Continue same regimen Dyslipidemia 06/17/2016 Assessment & Plan (05/03/2024 8:16 AM CDT): HDL is better, LDL is lower Cont diet low chol diet and lifestyle changes Switch to nut milk Assessment & Plan (09/28/2023 3:04 PM ABRASIVE GRINDER): worsening on rx statin therapy continue prescription Instead of increasing crestor improve on diet And watch LFTs recently up but been on a lot of tylenol lately Ff low chol diet Avoid sugars, desserts, alcohol to control trigs Assessment & Plan (03/23/2023 11:04 AM CDT): worsening on rx statin therapy continue prescription Instead of increasing crestor improve on diet And watch LFTs recently up but been on a lot of tylenol lately Ff low chol diet Avoid sugars, desserts, alcohol to control trigs Assessment & Plan (09/03/2022 8:39 AM ABRASIVE GRINDER): Better AST now normal Cont statin med at current dose, LDL 101, HDL 68 Follow step 1 low cholesterol diet. Report if having problems with daily nausea or extreme muscle aches and weaknesses throughout the body if you have been prescribed a statin medication. Monitor lipid levels on a regular basis as discussed and planned. Recommend to continue with current medication. Controlled on current regimen. Assessment & Plan (02/22/2022 4:54 PM CDT): Better AST now normal Cont statin med at current dose, LDL 101, HDL 68 Follow step 1 low cholesterol diet. Report if having problems with daily nausea or extreme muscle aches and weaknesses throughout the body if you have been prescribed a statin medication. Monitor lipid levels on a regular basis as discussed and planned. Recommend to continue with current medication. Controlled on current regimen. Assessment & Plan (03/04/2021 8:55 AM CDT): Better Slight elevation of AST Follow step 1 low cholesterol diet. Report if having problems with daily nausea or extreme muscle aches and weaknesses throughout the body if you have been prescribed a statin medication. Monitor lipid levels on a regular basis as discussed and planned. Recommend to continue with current medication. Controlled on current regimen. Assessment & Plan (08/28/2020 3:51 PM ABRASIVE GRINDER): Pravastatin not getting chol to goal, change to crestor Assessment & Plan (02/20/2019 4:22 PM CDT): Follow step 1 low cholesterol diet. Report if having problems with daily nausea or extreme muscle aches and weaknesses throughout the body if you have been prescribed a statin medication. Monitor lipid levels on a regular basis as discussed and planned. Recommend to continue with current medication. Controlled on current regimen. Essential hypertension 12/11/2015 Assessment & Plan (05/03/2024 8:07 AM CDT): Cont under surgery attendant Stable BP on current regimen Sodium no longer low off hctz Cont the rx amlodipine 2.5, metoprolol and the irbesratan Assessment & Plan (09/28/2023 3:04 PM ABRASIVE GRINDER): Stable continue prescription med Stop the hctz since the sodium is below normal and having muscle cramps in ribs, legs, even fingers Sodium 132 Cont the rx amlodipine 2.5, metoprolol and the irbesratan Assessment & Plan (03/23/2023 10:56 AM CDT): Stable continue prescription med Stop the hctz since the sodium is below normal and having muscle cramps in ribs, legs, even fingers Sodium 132 Cont the rx metoprolol and the irbesratan Assessment & Plan (09/03/2022 8:39 AM ABRASIVE GRINDER): Follow low sodium DASH Diet. Exercise regularly for CV health and weight loss. Achieve or Maintain normal BMI/Weight. Take medications as prescribed. Report if having problems with the medication or if develops Chest pains. Monitor BP occly and record. Report if BP consistently over 160/90 or under 90/60 and dizzy and LH. BP is controlled and stable. Refer to Dr Iqbal, or Dr Estrella for eval of exertional SOB, HTN and famhx of cad Assessment & Plan (02/22/2022 4:54 PM CDT): bp controlled Cont the same Ff low sodium diet Exercise regularly Assessment & Plan (03/04/2021 8:48 AM CDT): bp controlled Cont same dose Ff low sodium diet Assessment & Plan (01/30/2021 5:03 PM CDT): Continue with metoprolol and irbesartan. Assessment & Plan (11/03/2020 9:44 AM CDT): Continue with irbesartan and metoprolol. Assessment & Plan (08/28/2020 4:00 PM ABRASIVE GRINDER): bp controlled Cont the same Ff low sodium diet Exercise regularly Assessment & Plan (12/13/2019 1:54 PM CDT): Chest Lately blood pressure has been erratic. Will add a beta-abhijeet after obtaining results of the 24 hour Holter monitor Limit caffeine and alcohol Limit sodium in diet cut down and crackers and cheese . Get up every hour and walk around for about 1 minutes. Avoid sitting at the computer for prolonged periods of time. After every december meal breakfast lunch and dinner I want her to walk 15 minutes or do some exercise for 15 minutes 3 times a day immediately following her meals. Monitor blood pressure and pulse rate and report in 2 weeks Assessment & Plan (02/20/2019 4:22 PM CDT): Follow low sodium DASH Diet. Exercise regularly for CV health and weight loss. Achieve or Maintain normal BMI/Weight. Take medications as prescribed. Report if having porblems with the medication or if develops Chest pains. Monitor BP occly and record. Report if BP consistently over 160/90 or under 90/60 and dizzy and LH. BP is controlled and stable. Resolved Problems Problem Noted Date Diagnosed Date Resolved Date Acute cystitis without hematuria 02/22/2022 03/22/2023 Overview (02/22/2022): 02/23/2022 E coli UTI OAB on oxybutinin Assessment & Plan (02/22/2022 4:52 PM CDT): Hold oxybutinin while on 7d abx course Drink plenty of fluids to flush urinary tract Report if develops fever or chills or condition worsens Take antibiotic as rx Report if develops any significant side effects from the antibiotic therapy Finish up antibiotic regimen completely as prescribed Low sodium levels 03/04/2021 02/22/2022 Assessment & Plan (03/04/2021 9:06 AM CDT): Sodium as 133, recovered to 138 Chloride 102 from 96, better resolved Abnormal urine odor 03/04/2021 02/23/20 Assessment & Plan (03/04/2021 12:49 PM CDT): Likely from supplements Urine dip today al abnormal, send for culture Loud snoring 09/13/2020 02/22/2022 Assessment & Plan (11/03/2020 9:44 AM CDT): Patient will need referred to sleep lab. Assessment & Plan (09/13/2020 12:16 PM ABRASIVE GRINDER): Patient is complaining of snoring at night and daytime sleepiness. She will need sleep study. Chronic cough 09/12/2020 02/22/2022 Overview (03/04/2021): Dr Santiago tailer out Better on singulair and chlortab Normal PFTs Assessment & Plan (03/04/2021 9:03 AM CDT): Better since on singulair and chlortab regimen Cont same Cont under Dr Santiago Assessment & Plan (01/30/2021 5:02 PM CDT): Continue with Rhinocort and chlorpheniramine. I will give her a trial of Singulair though her IgE level is normal. Assessment & Plan (11/03/2020 9:44 AM CDT): Patient's chest x-ray, PFTs and methacholine challenge test are normal. I will start her on Rhinocort aqua and chlorpheniramine at night. Assessment & Plan (09/13/2020 12:15 PM ABRASIVE GRINDER): Cough is likely due to rhinosinusitis. I will obtain inflammatory markers and IgE level. Start her on Nasonex and schedule her on Zyrtec. If IgE level is elevated start her on montelukast. Will also obtain PFTs with methacholine challenge test. Palpitations 12/13/2019 02/22/2022 Assessment & Plan (12/13/2019 1:52 PM CDT): TSH, BMP, Magnesium level soon non fasting at [facility] 24 hr holter monitor As soon as removes monitor in 24 hrs, start beta abhijeet med at hs for palpitations Continue Avapro therapy taking morning instead Limit stimulants keep caffeine and alcohol on the low Herpes zoster without complication 08/10/2019 02/22/2022 Assessment & Plan (08/10/2019 7:42 AM ABRASIVE GRINDER): Valtrex every 8 hours x 1 week. Tylenol or ibuprofen for headache. Advised to avoid contact with infants, children who are not up-to-date on immunizations, or anyone who is immunocompromised or on immunosuppressants. Instructed to call eye doctor today for appointment for further evaluation and management due to location of rash. Advised to get Shingrex vaccine after rash resolves. If symptoms worsen, don't resolve with treatment, or new symptoms develop, recommended follow-up with PCP. Immunizations Name Administration Dates Next Due Influenza, Quad, Adjuvantate d, Intramuscular 06/06/2023 Influenza, Unspecified 05/03/2024(Deferr ed: Patient Refused),05/28/2022,05/28/2020, 020,05/09/2019 Pneumococcal Conjugate Pcv20 03/23/2023 Tdap 02/20/2019 ZOSTER Recombinant 03/07/2020,08/23/2019 Social History Tobacco Use Types Packs/Day Years Used Date Smoking Tobacco: Former Cigarettes 0.3 3 Smokeless Tobacco: Never Comments:I quit before I got 43 years. Alcohol Use Standard Drinks/Week Comments Yes 0 (1 standard drink = 0.6 oz pur e alcohol) AUDIT-C Answer Date Recorded Q1: How often do you have a drink containing alc ohol? Monthly or less 09/28/2023 Q2: How many drinks containi ng alcohol do you have on a typical day when you are drinking? 1 or 2 09/28/2023 Q3: How often do you have si x or more drinks on one occasion? Never 09/28/2023 PHQ-2 Answer Date Recorded PHQ-2 Total Score (If total score is 3 or more points, staff should administer the PHQ-9) 0 05/03/2024 Comments No Sex and Gender Information Value Date Recorded Sex Assigned at Not on file Legal Sex Female 4:00 AM ABRASIVE GRINDER Gender Identity Female 06/02/2020 7:58 PM CDT Sexual Orientation Straight 06/02/2020 7: 58 PM CDT Last Filed Vital Signs Vital Sign Reading Time Taken Comments Blood Pressure 128/64 05/26/2024 8:53 AM CDT Pulse 73 05/26/2024 8:33 AM CDT Temperature 36.4 ??C (97.5 ??F) 05/03/2024 7:44 AM CD T Respiratory Rate 18 12/16/2023 9:13 AM CDT Oxygen Saturation 97% 05/26/2024 8:33 AM CDT Inhaled Oxygen Concentration - - Weight 68.5 kg (151 lb) 07/13/2024 10:16 AM ABRASIVE GRINDER Height 160 cm (5' 3 ) 05/26/2024 8:33 AM CDT Body Mass Index 26.75 05/26/2024 8:33 AM CDT Plan of Treatment Not on file Procedures Procedure Name Priority Date/Time Associated Diagnosis Comments MAMMOGRAM TECHNICAL REPEAT BILATERAL Schedule Routine, Read Routine (OP Routine) 07/18/2024 9:17 AM ABRASIVE GRINDER Inconclusive mammogram SCREENING MAMMOGRAM BILATERAL W HOMERO Schedule Routine, Read Routine (OP Routine) 07/13/2024 11:00 AM ABRASIVE GRINDER At high risk for breast cancer HM COLONOSCOPY Routine 05/25/2023 HEPATITIS C ANTIBODY Routine 08/28/2020 2:59 PM ABRASIVE GRINDER from Last 3 Months or Most Recently Relevant to Health Maintenance Results * Mammogram Technical Repeat Bilateral (07/18/2024 9:17 AM ABRASIVE GRINDER) Anatomical Region Laterality Modality Breast Bilateral Mammography Narrative 07/18/2024 9:15 AM ABRASIVE GRINDER Mammogram Technique: Full-Field Digital Mammogram was performed. Technical repeat. ??Views obtained: ??. ??Computer Aided Detection was performed. Mammogram Findings: The present examination has been compared to prior imaging studies performed at [facility] on 07/13/2024, and at [facility] on 06/22/2022 and 06/28/2023. The breasts are heterogeneously dense, which may obscure small masses. There is no suspicious abnormality in either breast. Impression: There is no mammographic evidence of malignancy. Annual screening mammography is recommended. If supplemental screening is desired, breast MRI would be recommended in this patient with heterogeneously dense breasts. OVERALL FINAL ASSESSMENT: BI-RADS CATEGORY 1: ??Negative. Procedure Note Maryanne Reveles MD - 07/18/2024 Mammogram Technique: Full-Field Digital Mammogram was performed. Technical repeat. Views obtained: . Computer Aided Detection was performed. Mammogram Findings: The present examination has been compared to prior imaging studies performed at [facility] on 07/13/2024, andat [facility] on 06/22/2022 and 06/28/2023. The breasts are heterogeneously dense, which may obscure small masses. There is no suspicious abnormality in either breast. Impression: There is no mammographic evidence of malignancy. Annual screening mammography is recommended. If supplemental screeningis desired, breast MRI would be recommended in this patient with heterogeneously dense breasts. OVERALL FINAL ASSESSMENT: BI-RADS CATEGORY 1: Negative. 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 ??Views obtained: ??bilateral craniocaudal and bilateral mediolateral oblique. ??Computer Aided Detection was performed. Mammogram Findings: The present examination has been compared to prior imaging studies performed at [facility] on 06/16/2021, 06/22/2022 and 06/28/2023. The breasts are heterogeneously dense, which may obscure small masses. There are technical repeats in both breasts. Recommend repeat view of each breast with the nipple in profile. Impression: Technical repeats in both breasts require additional evaluation. Technical Repeat. Additional projections (bilateral craniocaudal with tomosynthesis) are recommended at this time. OVERALL FINAL ASSESSMENT: BI-RADS CATEGORY 0: ??Incomplete: ??Need additional imaging evaluation. Procedure Note Rhoda Nevarez MD - 07/14/2024 Mammogram Technique: Bilateral Digital Breast Tomosynthesis, Bilateral C-view 2D Screening mammogram. Views obtained: bilateral craniocaudal and bilateral mediolateral oblique. Computer Aided Detection was performed. Mammogram Findings: The present examination has been compared to prior imaging studies performed at [facility] on 06/16/2021, 06/22/2022 and 06/28/2023. The breasts are heterogeneously dense, which may obscure small masses. There are technical repeats in both breasts. Recommend repeat view ofeach breast with the nipple in profile. Impression: Technical repeats in both breasts require additional evaluation.Technical Repeat. Additional projections (bilateral craniocaudal withtomosynthesis) are recommended at this time. OVERALL FINAL ASSESSMENT: BI-RADS CATEGORY 0: Incomplete: Need additional imaging evaluation. Ridge Bravo ASBESTOS HAZARD ABATEMENT WORKER IMG MAMMO PROCEDURES Final Result * (ABNORMAL) COLONOSCOPY (05/25/2023) Scribed Colonoscopy Abnormal us Historical Provider HEALTH MAINTENANCE Final Result * Hepatitis C antibody (08/28/2020 2:59 PM ABRASIVE GRINDER) SCRIBED HCV ab neg EXTERNAL LAB Blood specimen (specimen) Historical Provider LAB MICROBIOLOGY - GENERA L ORDERABLES Final Result EXTERNAL LAB from Last 3 Months or Most Recently Relevant to Health Maintenance Insurance [facility] [employer] Address: [place] [id number] [facility] Care Teams Biomedical Engineering Technologist Relationship Specialty Start Date End Date Cuca Brunson MD [facility] [id number] PCP - General 04/07/17 Long Stern MD [address] GASTROENTEROLOGY [place], [place] [id number] Referring Physician Gastroenterology 05/31/23
--- OUTSIDE RECORDS SUMMARY | 2024-09-11 10:04 | XMS_ITS | Encounter Summary ---
Author Organization [facility] Address [address] [place] [address] Care Team Providers Care Twisting Frame Operator Name Role Phone Cuca Brunson MD Primary Care Provider + [phone] Unknown, Notinfile Primary Care Provider Unavail able Cuca Brunson MD Primary Care Provider + [phone] Long Stern MD Unavailable + Encounter Details Date Type Department Care Team (Late st Contact Info) Description 04/21/2012 Orders Only [facility] Health Information Management [address] [place] [address] Scanning, Provider Social History Tobacco Use Types Packs/Day Years Used Date Smoking Tobacco: Never Assessed Comments Unknown Sex and Gender Information Value Date Recorded Sex Assigned at Not on file Legal Sex Female 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 Gender Identity Female 06/02/2020 7:58 PM CDT Sexual Orientation Straight 06/02/2020 7: 58 PM CDT documented as of this encounter Plan of Treatment Not on file documented as of this encounter Procedures Procedure Name Priority Date/Time Associated Diagnosis Comments SCAN - RADIOLOGY/IMAGING 04/21/2012 documented in this encounter Results * SCAN - RADIOLOGY/IMAGING (04/21/2012) Anatomical Region Laterality Modality Other us Provider Scanning Final Result documented in this encounter Visit Diagnoses Not on filedocumented in this encounter Care Teams Twisting Frame Operator Relationship Specialty Start Date End Date Cuca Brunson MD [address] [place] [id number] PCP - General 03/31/17 03/31/17 Unknown, Notinfile PCP - General 04/01/17 04/06/17 Cuca Brunson MD [address] [place] [id number] PCP - General 04/07/17 Long Stern MD [address] [place] [address] Referring Physician Gastroenterology 05/31/23 documented as of this encounter
--- OUTSIDE RECORDS SUMMARY | 2024-09-11 10:04 | XMS_ITS | Clinical Summary ---
Author Organization [facility] 2 Address [address] [place] [address] Care Team Providers Care Telephone Maintainer Name Role Phone Cuca Brunson MD Primary Care Provider [phone] Long Stern MD Unavailable + Allergies Active Allergy Reactions Criticality Noted Date [...] 6% Assessment & Plan (09/28/2023 3:13 PM INSTRUCTOR PRIVATE): Ff no sugar diet Cont to walk [...] zoloft Assessment & Plan (09/28/2023 3:05 PM INSTRUCTOR PRIVATE): Doing well on low dose Rx sertraline and wants to continue stable Assessment & Plan (03/22/2023 7:29 PM CDT): Doing well on Rx sertraline and wants to continue Might benefit from change to cymbalta if weight gain continues or if it may help with her stress incont Assessment & Plan (09/03/2022 8:27 AM INSTRUCTOR PRIVATE): Doing well on sertraline and wants to continue Might benefit from change to cymbalta if weight gain continues or if it may help with her stress incont Frequent UTI 09/03/2022 Assessment & Plan (09/03/2022 8:34 AM INSTRUCTOR PRIVATE): Finish current abx Hydrate Hold oxybutinin while [...] intentional Assessment & Plan (08/23/2019 4:25 PM INSTRUCTOR PRIVATE): Work on wt loss Exercise regularly Annual [...] and establishing or updating healthcare power of rf test technician document and providing our office with a [...] maintenance. Assessment & Plan (08/28/2020 3:59 PM INSTRUCTOR PRIVATE): Wear sunscreen with SPF over 50 while [...] office. Assessment & Plan (08/23/2019 4:23 PM INSTRUCTOR PRIVATE): Wear sunscreen while outdoors. 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 06/16/2017 Overview (02/17/2019): [place], [place] Smut, etc (dx by allergy testing, dr Ramirez), maintained on NS and eye gtts OAB (overactive bladder) 12/16/2016 Overview (02/20/2019): On oxybutinin Assessment & Plan (05/03/2024 8:09 AM CDT): Not an issue at this time Cont to take the rx oxybutinin med, is helping stable Assessment & Plan (09/28/2023 3:05 PM INSTRUCTOR PRIVATE): Not an issue Cont to take the oxybutinin med, is helping stable Assessment & Plan (03/22/2023 7:29 PM CDT): Weak pelvic floor Cont prescribed oxybutinin Not been to a urologist Prone to UTIs Has been referred at the last visit to the urologist for recurrent UTIs Assessment & Plan (09/03/2022 8:24 AM INSTRUCTOR PRIVATE): Weak pelvic floor Cont oxybutinin Not been to a urologist Prone to UTIs Refer to uro Assessment & Plan (02/22/2022 4:53 PM CDT): Cont on oxybutinin therapy Pelvic floor exercises Assessment & Plan (03/04/2021 8:59 AM CDT): Cont on oxybutinin therapy Strong odor lately do a urine dip to rule out infection Assessment & Plan (08/28/2020 3:54 PM INSTRUCTOR PRIVATE): Cont on oxybutinin Wait on urine culture results from [place] Assessment & Plan (02/20/2019 4:35 PM CDT): Continue same regimen Dyslipidemia 06/17/2016 Assessment & Plan (05/03/2024 8:16 AM CDT): HDL is better, LDL is lower Cont diet low chol diet and lifestyle changes Switch to nut milk Assessment & Plan (09/28/2023 3:04 PM INSTRUCTOR PRIVATE): worsening on rx statin therapy continue prescription [...] trigs Assessment & Plan (09/03/2022 8:39 AM INSTRUCTOR PRIVATE): Better AST now normal Cont statin med [...] regimen. Assessment & Plan (08/28/2020 3:51 PM INSTRUCTOR PRIVATE): Pravastatin not getting chol to goal, change [...] Plan (05/03/2024 8:07 AM CDT): Cont under primary products inspectors Stable BP on current regimen Sodium no longer low off hctz Cont the rx amlodipine 2.5, metoprolol and the irbesratan Assessment & Plan (09/28/2023 3:04 PM INSTRUCTOR PRIVATE): Stable continue prescription med Stop the hctz [...] irbesratan Assessment & Plan (09/03/2022 8:39 AM INSTRUCTOR PRIVATE): Follow low sodium DASH Diet. Exercise regularly [...] metoprolol. Assessment & Plan (08/28/2020 4:00 PM INSTRUCTOR PRIVATE): bp controlled Cont the same Ff low [...] lab. Assessment & Plan (09/13/2020 12:16 PM INSTRUCTOR PRIVATE): Patient is complaining of snoring at night and daytime sleepiness. She will need sleep study. 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 Assessment & Plan (09/13/2020 12:15 PM INSTRUCTOR PRIVATE): Cough is likely due to rhinosinusitis. I will obtain inflammatory markers and IgE level. Start her on Nasonex and schedule her on Zyrtec. If IgE level is elevated start her on montelukast. Will also obtain PFTs with methacholine challenge test. Palpitations 12/13/2019 02/22/2022 Assessment & Plan (12/13/2019 1:52 PM CDT): TSH, BMP, Magnesium level soon non fasting at [facility] 24 hr holter monitor As soon as removes monitor in 24 hrs, start beta abhijeet med at hs for palpitations Continue Avapro therapy taking morning instead Limit stimulants keep caffeine and alcohol on the low Herpes zoster without complication 08/10/2019 02/22/2022 Assessment & Plan (08/10/2019 7:42 AM INSTRUCTOR PRIVATE): Valtrex every 8 hours x 1 week. [...] new symptoms develop, recommended follow-up with PCP. Encounters Date Type Department Care Team Description 07/19/2024 Orders Only [facility] [address] [place] [address] [address] [place] [phone] Yvette Nails NP Screening mammogram, encounter for (Primary Dx); At high risk for breast cancer 07/18/2024 8:39 AM INSTRUCTOR PRIVATE - 07/18/2024 11:59 PM INSTRUCTOR PRIVATE Hospital Encounter [facility] Breast Imaging [facility] ([facility]) [address] [place] [id number] Inconclusive mammogram Discharge Disposition: Discharge to home or self care 07/18/2024 Telephone [facility] [address] [place] [phone] Esmer Segovia NP 07/13/2024 10:45 AM INSTRUCTOR PRIVATE Office Visit [facility] [address] [place] [phone] Esmer Segovia NP Inverted nipple (Primary Dx); Screening mammogram, encounter for; Heterogeneously dense tissue of both breasts on mammography 07/13/2024 10:04 AM INSTRUCTOR PRIVATE - 07/13/2024 11:59 PM INSTRUCTOR PRIVATE Hospital Encounter [facility] - Breast Imaging [address] [place] [address] 8 [place] [address] At high risk for breast cancer Discharge Disposition: Discharge to home or self care from Last 3 Months Immunizations Name Administration Dates Next Due Influenza, Quad, Adjuvantate d, Intramuscular 06/06/2023 Influenza, Unspecified 05/03/2024(Deferr ed: Patient Refused),05/28/2022,05/28/2020, 020,05/09/2019 Pneumococcal Conjugate Pcv20 03/23/2023 Tdap 02/20/2019 ZOSTER Recombinant 03/07/2020,08/23/2019 Surgical History Surgery Date Site/Laterality Comments TOTAL ABDOMINAL HYSTERECTOMY Hysterectomy, total age 37 Medical History Medical History Date Comments Hyperlipidemia HLD - Hyperlipid emia; Comments: TYW 10/09/2015 - Overactive bladder Overactive bl adder; Comments: TYW 10/09/2015 - Hx Other Medical Headache, migra ine Hx Other Medical seasonal allerg ies; Comments: KATHLEEN 10/10/2015 - Anxiety disorder Anxiety Gastroesophageal reflux disease GERD Herpes zoster without complication 08/10/2019 Brain concussion 2006 Hypertension Sleep apnea Jul 2022 Family History Medical History Relation Name Comments Hyperlipidemia Father Vikas Hyperlipidemi a; Hypertension Father Vikas Hypertension; Parkinsonism Father Vikas Parkinson's dis ease; Skin cancer Father Vikas Cancer, skin; Stroke Father Vikas Hyperlipidemia Mother Chary Hyperlipidemi a; Hypertension Mother Chary Hypertension; Relation Name Status Comments Father Vikas Mother Chary Alive Social History Tobacco Use Types Packs/Day Years [...] on file Legal Sex Female 4:00 AM INSTRUCTOR PRIVATE Gender Identity Female 06/02/2020 7:58 PM CDT Sexual Orientation Straight 06/02/2020 7: 58 PM CDT Obstetrics History Last Filed Vital Signs Vital Sign Reading Time Taken Comments Blood Pressure 128/64 05/26/2024 8:53 AM CDT Pulse 73 05/26/2024 8:33 AM CDT Temperature 36.4 ??C (97.5 ??F) 05/03/2024 7:44 AM CD T Respiratory Rate 18 12/16/2023 9:13 AM CDT Oxygen Saturation 97% 05/26/2024 8:33 AM CDT Inhaled Oxygen Concentration - - Weight 68.5 kg (151 lb) 07/13/2024 10:16 AM INSTRUCTOR PRIVATE Height 160 cm (5' 3 ) 05/26/2024 8:33 AM CDT Body Mass Index 26.75 05/26/2024 8:33 AM CDT Plan of Treatment Health Maintenance Due Date Last Done Comments Osteoporosis Screening-Bone Density Scan 1960 Hepatitis B Screening 1978 Covid-19 Vaccine ( season) 2024 08/15/2021, 10/08/2020, 09/10/2020 Influenza Vaccine (#1) 2025 , 05/28/2022, 05/28/2020, Additional history exists Postponed from 04/09/2024 (Patient declined, but will receive in the future) Depression Screening 05/03/2025 05/03/2024, 03/23/2023, 03/23/2023, Additional history exists Fall Risk Assessment 05/03/2025 05/03/2024, 03/23/2023, 08/23/2019, Additional history exists Well Visit 65+ 05/03/2025 05/03/2024, 03/09, 02/23/2022, Additional history exists Breast Cancer Screening-Mammogram 07/13/2025 07/13/2024, 06/28/2023, 06/22/2022, Additional history exists Colon Cancer Screening-Colonoscopy 05/25/2028 05/25/2023, 02/28/2019 DTaP/Tdap/Td Vaccine (2 - Td or Tdap) 02/20/2029 02/20/2019 Zoster Vaccine Completed 03/07/2020, 08/23/2019 Hepatitis C Screening Completed 08/28/2020 Pneumococcal vaccine 65+ Completed 03/23/2023 Colon Cancer Screening-CT Colonography Discontinued 05/25/2023, 02/28/2019 Colon Cancer Screening-DNA Stool Discontinued 05/25/2023, 02/28/2019 Colon Cancer Screening-FIT Discontinued 05/25/2023, Colon Cancer Screening-Sigmoidoscopy Discontinued 05/25/2023, 02/28/2019 Procedures Procedure Name Priority Date/Time Associated Diagnosis Comments MAMMOGRAM TECHNICAL REPEAT BILATERAL Schedule Routine, Read Routine (OP Routine) 07/18/2024 9:17 AM INSTRUCTOR PRIVATE Inconclusive mammogram SCREENING MAMMOGRAM BILATERAL W HOMERO Schedule Routine, Read Routine (OP Routine) 07/13/2024 11:00 AM INSTRUCTOR PRIVATE At high risk for breast cancer HM COLONOSCOPY Routine 05/25/2023 HEPATITIS C ANTIBODY Routine 08/28/2020 2:59 PM INSTRUCTOR PRIVATE from Last 3 Months or Most Recently Relevant to Health Maintenance Results * Mammogram Technical Repeat Bilateral (07/18/2024 9:17 AM INSTRUCTOR PRIVATE) Anatomical Region Laterality Modality Breast Bilateral Mammography Narrative 07/18/2024 9:15 AM INSTRUCTOR PRIVATE Mammogram Technique: Full-Field Digital Mammogram was performed. Technical repeat. ??Views obtained: ??. ??Computer Aided Detection was performed. Mammogram Findings: The present examination has been compared to prior imaging studies performed at [facility] on 07/13/2024, and at [facility] on 06/22/2022 and 06/28/2023. The breasts [...] compared to prior imaging studies performed at [facility] on 07/13/2024, andat [facility] on 06/22/2022 and 06/28/2023. The breasts are heterogeneously dense, which may obscure small masses. There is no suspicious abnormality in either breast. Impression: There is no mammographic evidence of malignancy. Annual screening mammography is recommended. If supplemental screeningis desired, breast MRI would be recommended in this patient with heterogeneously dense breasts. OVERALL FINAL ASSESSMENT: BI-RADS CATEGORY 1: Negative. Esmer Segovia LAWYER REAL ESTATE IMG MAMMO PROCEDURES Fi nal Result * Screening Mammogram Bilateral W Homero (07/13/2024 11:00 AM INSTRUCTOR PRIVATE) Anatomical Region Laterality Modality Breast Bilateral Mammography Narrative 07/14/2024 4:34 PM INSTRUCTOR PRIVATE Mammogram Technique: Bilateral Digital Breast Tomosynthesis, Bilateral C-view 2D Screening mammogram. ??Views obtained: ??bilateral craniocaudal and bilateral mediolateral oblique. ??Computer Aided Detection was performed. Mammogram Findings: The present examination has been compared to prior imaging studies performed at [facility] on 06/16/2021, 06/22/2022 and 06/28/2023. The [...] compared to prior imaging studies performed at [facility] on 06/16/2021, 06/22/2022 and 06/28/2023. The [...] Incomplete: Need additional imaging evaluation. Ridge Bravo LAWYER REAL ESTATE IMG MAMMO PROCEDURES Final Result * (ABNORMAL) COLONOSCOPY (05/25/2023) Scribed HM Colonoscopy Abnormal Historical Provider HEALTH MAINTENANCE Final Result * Hepatitis C antibody (08/28/2020 2:59 PM INSTRUCTOR PRIVATE) SCRIBED HCV ab neg EXTERNAL LAB Blood specimen (specimen) Historical Provider LAB MICROBIOLOGY - GENERA L ORDERABLES Final Result EXTERNAL LAB from Last 3 Months or Most Recently Relevant to Health Maintenance Insurance [facility] Care Teams Telephone Maintainer Relationship Specialty Start Date End Date Cuca Brunson MD [address] [place] [id number] PCP - General 04/07/17 Long Stern MD [address] [place] [address] Referring Physician Gastroenterology 05/31/23
[2024-09-11 10:27] LABS: EDCOVIDSCREEN Negative (Negative); EDINFLUASCREEN Positive (Negative); EDINFLUBSCREEN Negative (Negative)
--- NOTE | 2024-09-11 10:28 | ED_ITS ---
HPI - General Adult General Chief complaint: Upper Respiratory Infection Stated complaint: Head Congestion History of Present Illness HPI narrative: Vivi Clifford Is a 64-year-old female who presents today with complaints of having increased cough 2 days ago, and she states that yesterday she developed on her body aches fever severe nasal congestion. Related Data Home Medications ?Medication ?Instructions ?Recorded ?Confirmed ?Last Taken ?Type irbesartan 300 mg tablet 300 mg PO DAILY 04/14/21 06/13/24 05/24/23 History metoprolol succinate 50 mg 50 mg PO DAILY 04/14/21 06/13/24 05/24/23 History tablet,extended release 24 hr budesonide 32 mcg/actuation nasal 1 spray intranasal DAILY 09/24/21 06/13/24 05/24/23 History spray oxybutynin chloride 15 mg 15 mg PO DAILY 09/24/21 06/13/24 05/24/23 History tablet,extended release 24 hr rosuvastatin 10 mg tablet 10 mg PO DAILY 09/24/21 06/13/24 05/24/23 History sertraline 25 mg tablet 25 mg PO DAILY 09/24/21 06/13/24 05/24/23 History montelukast 10 mg tablet 10 mg PO DAILY 04/04/22 06/13/24 05/24/23 History amlodipine 5 mg tablet 2.5 mg PO DAILY 05/05/23 06/13/24 05/24/23 History omeprazole 40 mg capsule,delayed 40 mg PO DAILY 05/05/23 06/13/24 05/24/23 History release Allergies Allergy/AdvReac Type Severity Reaction Status Date / Time clarithromycin AdvReac Intermediate NAUSEA/VOMI Verified 09/11/24 09:57 TING levofloxacin AdvReac Intermediate Abdominal Verified 09/11/24 09:57 Pain lisinopril AdvReac Intermediate COUGH Verified 09/11/24 09:57 Review of Systems Review of Systems: All systems reviewed & are unremarkable except as noted in HPI and below PMFSH Past Medical History Medical History Elevated liver enzymes Throat clearing Chronic cough Abnormal CT scan, colon Abnormal CT scan, stomach Epigastric pain Left knee pain Heart disease Overactive bladder Hyperlipidemia Depression Hypertension Surgical History Surgical History H/O: hysterectomy No significant past surgical history Family History Family History Other Hypertension Social History Social History Smoking status: Never smoker Tobacco type: cigarettes Alcohol intake: current Alcohol use details: 4-6 drinks monthly Substance use: never Substance use type: does not use Living arrangements: with family Occupation/Education: occupation Gender identity (if verbalized by the patient): Female Spiritual care concerns: No Exam Narrative: GENERAL: well-nourished, and in no acute distress. HEAD: Normocephalic, atraumatic. EYES: PERRLA and EOMI. ENT: Nares clear, no rhinorrhea or epistaxis Positive maxillary sinus tenderness, Mucous membranes moist. Oropharynx without tonsillar hypertrophy exudate or other lesions. Bilateral TMs pearly garcia nonbulging NECK: Supple. No adenopathy or masses. No carotid bruits or JVD CHEST: Clear to auscultation. No respiratory distress. No wheezes rales or rhonchi HEART: Regular rate and rhythm. No murmur heard. Normal peripheral pulses. ABDOMEN: nondistended, EXTREMITIES: Normal range of motion. No edema. SKIN: Warm, dry, no rash. NEURO: No focal deficits. Alert and oriented x3. PSYCH: Normal mood and affect. Course Course Level of Care: Express Care Visit Vital Signs Vital signs: Vital Signs Temperature 37.2 C 09/11/24 09:44 Pulse Rate 84 09/11/24 09:44 Respiratory Rate 20 09/11/24 09:44 Blood Pressure 144/68 H 09/11/24 09:44 Pulse Oximetry 99 09/11/24 09:44 Oxygen Delivery Room Air 09/11/24 09:44 Temperature 37.2 C 09/11/24 09:44 Pulse Rate 84 09/11/24 09:44 Respiratory Rate 20 09/11/24 09:44 Blood Pressure 144/68 H 09/11/24 09:44 Pulse Oximetry 99 09/11/24 09:44 Oxygen Delivery Room Air 09/11/24 09:44 Medical Decision Making MDM Narrative Medical decision making narrative: This 64 year old patient presents with symptoms most suggestive of viral upper respiratory tract infection. Lungs are clear bilaterally without any respiratory distress or accessory muscle use. tested positive for influenza A Patient is treated symptomatically with Tamiflu and Mucinex patient discharged home in stable condition with expectant management. Return precautions were provided. Procedures: Pulse oximetry interpretation - not hypoxic. Review of medical records. DISPOSITION: Discharged home in stable condition. IMPRESSION: Acute upper respiratory tract infection, likely viral. influenza a Medical Records Medical records reviewed: Yes I reviewed the external patient's medical records. Vital Signs Vital Signs: Vital Signs Temperature 37.2 C 09/11/24 09:44 Pulse Rate 84 09/11/24 09:44 Respiratory Rate 20 09/11/24 09:44 Blood Pressure 144/68 H 09/11/24 09:44 Pulse Oximetry 99 09/11/24 09:44 Oxygen Delivery Room Air 09/11/24 09:44 Temperature 37.2 C 09/11/24 09:44 Pulse Rate 84 09/11/24 09:44 Respiratory Rate 20 09/11/24 09:44 Blood Pressure 144/68 H 09/11/24 09:44 Pulse Oximetry 99 09/11/24 09:44 Oxygen Delivery Room Air 09/11/24 09:44 Lab Data Lab results reviewed: Yes I reviewed the patient's lab results. Labs: Lab Results 09/11/24 Range/Units 09:44 POC Influenza A Ag Positive (Negative) POC Influenza B Ag Negative (Negative) POC SARS CoV-2 Ag Negative (Negative) Discharge Plan Discharge Clinical Impression: Influenza A Patient Disposition: Home, Self-Care Condition: Stable Instructions: Antibiotic Form Additional Instructions: start taking the Tamiflu twice daily for 5 days start using it Mucinex twice daily to help with your congestion push oral hydration drinking plenty of fluids, Gatorade water popsicles take Tylenol Motrin for body aches and fever you may also use a humidifier to help loosen your congestion follow-up with your primary care doctor in the next 3-5 days to ensure you are improving if he develops any chest pain, shortness of breath, difficulty breathing, vomiting them go to the ER. Patient Language: Kosovan Prescriptions: New oseltamivir [Tamiflu] 75 mg capsule 75 mg PO Q12H 5 Days Qty: 10 0RF guaifenesin [Mucinex] 1,200 mg tablet extended release 12hr 1,200 mg PO BID Qty: 20 0RF No Action metoprolol succinate 50 mg tablet extended release 24 hr 50 mg PO DAILY irbesartan 300 mg tablet 300 mg PO DAILY montelukast 10 mg tablet 10 mg PO DAILY amlodipine 5 mg tablet 2.5 mg PO DAILY sertraline 25 mg tablet 25 mg PO DAILY oxybutynin chloride 15 mg tablet extended release 24 hr 15 mg PO DAILY rosuvastatin 10 mg tablet 10 mg PO DAILY budesonide 32 mcg/actuation spray,non-aerosol 1 spray intranasal DAILY Rx Instructions: administer into each nostril Qvar RediHaler 80 mcg/actuation HFA aerosol breath activated 1 inh inhalation Q12H Qty: 10.6 3RF Rx Instructions: Rinse mouth and spit after each use omeprazole 40 mg capsule,delayed release(DR/EC) 40 mg PO DAILY Follow-up/Referrals: Nannette,Cuca Krishnan MD [Primary Care Provider] - 3 Days Time of Disposition: 10:33
== END 2024-09-11 10:36 | disposition home or self-care (01) ==
PROVIDERS: Emergency Provider Nurse Practitioner Family; PCP Internal Medicine
DX: J10.1 Influenza due to other identified influenza virus with other respiratory manifestations (principal); E78.5 Hyperlipidemia, unspecified; I10 Essential (primary) hypertension; F32.A Depression, unspecified; Z20.822 Contact with and (suspected) exposure to COVID-19
CPT/HCPCS: 87426; 87804; 99213; G0463

== ENCOUNTER 2024-10-31 07:55 | Outpatient (CLI) | payer OTHER, SELFPAY ==
--- OUTSIDE RECORDS SUMMARY | 2024-10-31 08:07 | XMS_ITS | Encounter Summary ---
Author Organization [facility] Facility Care Team Providers Care Press Room Supervisor Name Role Phone Cuca Brunson MD Primary Care Provider + [phone] Unknown, Notinfile Primary Care Provider Unavail able Cuca Brunson MD Primary Care Provider + [phone] Long Stern MD Unavailable + Encounter Details Date Type Department Care Team (Latest Contact Info) Description 12/18/2016 Orders Only [facility] CLINCONV ProviderCelso MD [address] [place] [address] Social History Tobacco Use Types Packs/Day Years Used Date Smoking Tobacco: Never Alcohol Use Standard Drinks/Week Comments Yes 0 (1 standard drink = 0.6 oz pur e alcohol) Comments Unknown Sex and Gender Information Value Date Recorded Sex Assigned at Not on file Legal Sex Female 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
--- OUTSIDE RECORDS SUMMARY | 2024-10-31 08:07 | XMS_ITS | Encounter Summary ---
Author Organization [facility] Facility Care Team Providers Care Stem Mounter Name Role Phone Cuca Brunson MD Primary Care Provider + [phone] Unknown, Notinfile Primary Care Provider Unavail able Cuca Brunson MD Primary Care Provider + [phone] Long Stern MD Unavailable + Encounter Details Date Type Department Care Team (Latest Contact Info) Description 06/16/2016 Orders Only [facility]G CLINCONV ProviderCelso MD [address] [place], [place] [id number] Social History Tobacco Use Types Packs/Day Years Used Date Smoking Tobacco: Never Alcohol Use Standard Drinks/Week Comments Yes 0 (1 standard drink = 0.6 oz pur e alcohol) Comments Unknown Sex and Gender Information Value Date Recorded Sex Assigned at Not on file Legal Sex Female 4:00 AM COLLEGE ADMINISTRATOR Gender Identity Female 06/02/2020 7:58 PM CDT Sexual Orientation Straight 06/02/2020 7: 58 PM CDT documented as of this encounter Plan of Treatment Not on file documented as of this encounter Procedures Procedure Name Priority Date/Time Associated Diagnosis Comments SCAN - LABS 06/22/2016 12:00 AM COLLEGE ADMINISTRATOR SCAN - LABS 06/17/2016 12:00 AM COLLEGE ADMINISTRATOR documented in this encounter Results * SCAN - LABS (06/22/2016 12:00 AM COLLEGE ADMINISTRATOR) Narrative 06/22/2016 12:00 AM COLLEGE ADMINISTRATOR Ordered by an unspecified provider. us Historical Provider Final Res ult * SCAN - LABS (06/17/2016 12:00 AM COLLEGE ADMINISTRATOR) Narrative 06/17/2016 12:00 AM COLLEGE ADMINISTRATOR Ordered by an unspecified provider. us Historical Provider Final Res ult documented in this encounter Visit Diagnoses Not on filedocumented in this encounter Care Teams Stem Mounter Relationship Specialty Start Date End Date Cuca Brunson MD [address] [place] [id number] PCP - General 03/31/17 03/31/17 Unknown, Notinfile PCP - General 04/01/17 04/06/17 Cuca Brunson MD [address] [place] [address] PCP - General 04/07/17 Long Stern MD [address] [place] [address] Referring Physician Gastroenterology 05/31/23 documented as of this encounter
--- OUTSIDE RECORDS SUMMARY | 2024-10-31 08:07 | XMS_ITS | Encounter Summary ---
Author Organization [facility] Facility Care Team Providers Care Real Estate Legal Secretary Name Role Phone Cuca Brunson MD Primary Care Provider + [phone] Unknown, Notinfile Primary Care Provider Unavail able Cuca Brunson MD Primary Care Provider + [phone] Long Stern MD Unavailable + Encounter Details Date Type Department Care Team (Latest Contact Info) Description 06/06/2015 Orders Only [facility] CLINCONV ProviderCelso MD [address] [place] [address] Social History Tobacco Use Types Packs/Day Years Used Date Smoking Tobacco: Never Assessed Comments Unknown Sex and Gender Information Value Date Recorded Sex Assigned at Not on file Legal Sex Female 4:00 AM VP FOUNDATION Gender Identity Female 06/02/2020 7:58 PM CDT Sexual Orientation Straight 06/02/2020 7: 58 PM CDT documented as of this encounter Plan of Treatment Not on file documented as of this encounter Procedures Procedure Name Priority Date/Time Associated Diagnosis Comments SCAN - LABS 06/17/2016 12:00 AM VP FOUNDATION documented in this encounter Results * SCAN - LABS (06/17/2016 12:00 AM VP FOUNDATION) Narrative 06/17/2016 12:00 AM VP FOUNDATION Ordered by an unspecified provider. Historical Provider Final Res ult documented in this encounter Visit Diagnoses Not on filedocumented in this encounter Care Teams Real Estate Legal Secretary Relationship Specialty Start Date End Date Cuca Brunson MD [address] [place] [id number] PCP - General 03/31/17 03/31/17 Unknown, Notinfile PCP - General 04/01/17 04/06/17 Cuca Brunson MD [address] [place] [address] PCP - General 04/07/17 Long Stern MD [address] [place] [address] Referring Physician Gastroenterology 05/31/23 documented as of this encounter
--- OUTSIDE RECORDS SUMMARY | 2024-10-31 08:07 | XMS_ITS | Encounter Summary ---
Author Organization [facility] Facility Care Team Providers Care Electrophysiology Scientist Name Role Phone Cuca Brunson MD Primary Care Provider + [phone] Long Stern MD Unavailable + Encounter Details Date Type Department Care Team (Latest Contact Info) Description 06/14/2017 Orders Only [facility] CLINCONV ProviderCelso MD [address] [place] [address] Social History Tobacco Use Types Packs/Day Years Used Date Smoking Tobacco: Never Alcohol Use Standard Drinks/Week Comments Yes 0 (1 standard drink = 0.6 oz pur e alcohol) Comments Unknown Sex and Gender Information Value Date Recorded Sex Assigned at Not on file Legal Sex Female 4:00 AM RETAIL ADVERTISING EXECUTIVE Gender Identity Female 06/02/2020 7:58 PM CDT Sexual Orientation Straight 06/02/2020 7: 58 PM CDT documented as of this encounter Plan of Treatment Not on file documented as of this encounter Procedures Procedure Name Priority Date/Time Associated Diagnosis Comments SCAN - LABS 06/18/2017 12:00 AM RETAIL ADVERTISING EXECUTIVE SCAN - LABS 06/16/2017 12:00 AM RETAIL ADVERTISING EXECUTIVE documented in this encounter Results * SCAN - LABS (06/18/2017 12:00 AM RETAIL ADVERTISING EXECUTIVE) Narrative 06/18/2017 12:00 AM RETAIL ADVERTISING EXECUTIVE Ordered by an unspecified provider. Historical Provider Final Res ult * SCAN - LABS (06/16/2017 12:00 AM RETAIL ADVERTISING EXECUTIVE) Narrative 06/16/2017 12:00 AM RETAIL ADVERTISING EXECUTIVE Ordered by an unspecified provider. us Historical Provider Final Res ult documented in this encounter Visit Diagnoses Not on filedocumented in this encounter Care Teams Electrophysiology Scientist Relationship Specialty Start Date End Date Cuca Brunson MD [address] [place] [phone] PCP - General 04/07/17 Long Stern MD [address] [place] [address] Referring Physician Gastroenterology 05/31/23 documented as of this encounter
--- OUTSIDE RECORDS SUMMARY | 2024-10-31 08:07 | XMS_ITS | Encounter Summary ---
Author Organization [facility] Facility Care Team Providers Care Woods Overseer Name Role Phone Cuca Brunson MD Primary Care Provider + [phone] Unknown, Notinfile Primary Care Provider Unavail able Cuca Brunson MD Primary Care Provider + [phone] Long Stern MD Unavailable + Encounter Details Date Type Department Care Team (Latest Contact Info) Description 12/15/2016 Orders Only [facility] CLINCONV ProviderCelso MD [address] [place] [address] Social History Tobacco Use Types Packs/Day Years Used Date Smoking Tobacco: Never Alcohol Use Standard Drinks/Week Comments Yes 0 (1 standard drink = 0.6 oz pur e alcohol) Comments Unknown Sex and Gender Information Value Date Recorded Sex Assigned at Not on file Legal Sex Female 4:00 AM COLD HEADER Gender Identity Female 06/02/2020 7:58 PM CDT [...] on filedocumented in this encounter Care Teams Woods Overseer Relationship Specialty Start Date End Date Cuca Brunson MD [address] [place] [address] PCP - General 03/31/17 03/31/17 Unknown, Notinfile PCP - General 04/01/17 04/06/17 Cuca Brunson MD [address] [place] [address] PCP - General 04/07/17 Long Stern MD [address] [place] [address] Referring Physician Gastroenterology 05/31/23 documented as of this encounter
--- OUTSIDE RECORDS SUMMARY | 2024-10-31 08:08 | XMS_ITS | Encounter Summary ---
Author Organization [facility] Facility Care Team Providers Care Floor Worker [place] Name Role Phone Cuca Brunson MD Primary Care Provider + [phone] Long Stern MD Unavailable + Encounter Details Date Type Department Care Team (Latest Contact Info) Description 04/06/2018 Orders Only [facility] CLINCONV ProviderCelso MD [address] [place] [address] Social History Tobacco Use Types Packs/Day Years Used Date Smoking Tobacco: Never Smokeless Tobacco: Never Alcohol Use Standard Drinks/Week Comments Yes 0 (1 standard drink = 0.6 oz pur e alcohol) Comments No Sex and Gender Information Value Date Recorded Sex Assigned at Not on file Legal Sex Female 4:00 AM EM PHYSICIAN Gender Identity Female 06/02/2020 7:58 PM CDT [...] on filedocumented in this encounter Care Teams Floor Worker [place] Relationship Specialty Start Date End Date Cuca Brunson MD [address] [place] [address] PCP - General 04/07/17 Long Stern MD [address] [facility] [address] [place] [address] Referring Physician Gastroenterology 05/31/23 documented as of this encounter
--- OUTSIDE RECORDS SUMMARY | 2024-10-31 08:08 | XMS_ITS | Referral Summary ---
Author Organization [facility] 2 Address [address] [facility] [place] [address] Care Team Providers Care Messenger Copy Name Role Phone Cuca Brunson MD Primary Care Provider [phone] Long Stern MD Unavailable + Allergies Active Allergy Reactions Criticality Noted Date Comments Clarithromycin Vomiting Low 11/29/2018 vomitting Levofloxacin Stomach upset Low 04/06/2018 Lisinopril Cough Low 11/29/2018 cough Medications cholecalciferol (VITAMIN D3) 2,000 unit tablet take 1 by Oral route 2 times every day 0 0 6 Active chlorpheniramine maleate (ALLERGY RELIEF,CHLORPHENI RAMN, ORAL) Take by mouth Active guaiFENesin ER (MUCINEX) 600 mg 12 hr tablet Take 2 tablets (1,200 mg total) by mouth 2 (two) times a day Active cetirizine (ZyrTEC) 10 mg tablet Take 1 tablet (10 mg total) by mouth daily Active amLODIPine (NORVASC) 2.5 mg tablet TAKE 1 TABLET(2.5 MG) BY MOUTH DAILY 90 tablet 1 4 Active sertraline (ZOLOFT) 50 mg tablet TAKE 1 TABLET BY MOUTH DAILY 90 tablet 3 4 Active metoprolol XL (TOPROL-XL) 50 mg extended release tabletIndications :Essential hypertension TAKE 1 TABLET(50 MG) BY MOUTH EVERY NIGHT 90 tablet 1 10/07/202 4 Active irbesartan (AVAPRO) 300 mg tablet TAKE 1 TABLET BY MOUTH DAILY 90 tablet 1 4 Active budesonide (RHINOCORT AQUA) 32 mcg/actuation nasal spray SHAKE LIQUID AND USE 1 SPRAY IN EACH NOSTRIL DAILY 8.43 mL 1 4 Active rosuvastatin (CRESTOR) 10 mg tablet TAKE 1 TABLET BY MOUTH DAILY 90 tablet 3 4 Active oxyBUTYnin XL (DITROPAN XL) 15 mg 24 hr tabletIndications :OAB (overactive bladder) Take 1 tablet (15 mg total) by mouth daily 90 tablet 3 5 Active omeprazole (PriLOSEC) 20 mg capsule Take 1 capsule (20 mg total) by mouth daily 90 capsule 3 5 09/29/19 26 Active montelukast (SINGULAIR) 10 mg tablet Take 1 tablet (10 mg total) by mouth nightly 90 tablet 3 5 Active Active Problems Problem Noted Date Diagnosed Date Abnormal glucose 09/28/2023 Overview (09/28/2023): 09/2023 A1c 6% Assessment & Plan (09/28/2023 3:13 PM DRYING MACHINE BACK TENDER): Ff no sugar diet Cont to walk [...] zoloft Assessment & Plan (09/28/2023 3:05 PM DRYING MACHINE BACK TENDER): Doing well on low dose Rx sertraline and wants to continue stable Assessment & Plan (03/22/2023 7:29 PM CDT): Doing well on Rx sertraline and wants to continue Might benefit from change to cymbalta if weight gain continues or if it may help with her stress incont Assessment & Plan (09/03/2022 8:27 AM DRYING MACHINE BACK TENDER): Doing well on sertraline and wants to continue Might benefit from change to cymbalta if weight gain continues or if it may help with her stress incont Frequent UTI 09/03/2022 Assessment & Plan (09/03/2022 8:34 AM DRYING MACHINE BACK TENDER): Finish current abx Hydrate Hold oxybutinin while [...] intentional Assessment & Plan (08/23/2019 4:25 PM DRYING MACHINE BACK TENDER): Work on wt loss Exercise regularly Annual [...] and establishing or updating healthcare power of litigation attorney document and providing our office with [...] maintenance. Assessment & Plan (08/28/2020 3:59 PM DRYING MACHINE BACK TENDER): Wear sunscreen with SPF over 50 while [...] office. Assessment & Plan (08/23/2019 4:23 PM DRYING MACHINE BACK TENDER): Wear sunscreen while outdoors. 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 06/16/2017 Overview (02/17/2019): [place], [place] Smut, etc (dx by allergy testing, dr Ramirez), maintained on NS and eye gtts OAB (overactive bladder) 12/16/2016 Overview (02/20/2019): On oxybutinin Assessment & Plan (05/03/2024 8:09 AM CDT): Not an issue at this time Cont to take the rx oxybutinin med, is helping stable Assessment & Plan (09/28/2023 3:05 PM DRYING MACHINE BACK TENDER): Not an issue Cont to take the oxybutinin med, is helping stable Assessment & Plan (03/22/2023 7:29 PM CDT): Weak pelvic floor Cont prescribed oxybutinin Not been to a urologist Prone to UTIs Has been referred at the last visit to the urologist for recurrent UTIs Assessment & Plan (09/03/2022 8:24 AM DRYING MACHINE BACK TENDER): Weak pelvic floor Cont oxybutinin Not been to a urologist Prone to UTIs Refer to uro Assessment & Plan (02/22/2022 4:53 PM CDT): Cont on oxybutinin therapy Pelvic floor exercises Assessment & Plan (03/04/2021 8:59 AM CDT): Cont on oxybutinin therapy Strong odor lately do a urine dip to rule out infection Assessment & Plan (08/28/2020 3:54 PM DRYING MACHINE BACK TENDER): Cont on oxybutinin Wait on urine culture results from [place] Assessment & Plan (02/20/2019 4:35 PM CDT): Continue same regimen Dyslipidemia 06/17/2016 Assessment & Plan (05/03/2024 8:16 AM CDT): HDL is better, LDL is lower Cont diet low chol diet and lifestyle changes Switch to nut milk Assessment & Plan (09/28/2023 3:04 PM DRYING MACHINE BACK TENDER): worsening on rx statin therapy continue prescription [...] trigs Assessment & Plan (09/03/2022 8:39 AM DRYING MACHINE BACK TENDER): Better AST now normal Cont statin med [...] regimen. 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 Exercise regularly [...] metoprolol. Assessment & Plan (08/28/2020 4:00 PM DRYING MACHINE BACK TENDER): bp controlled Cont the same Ff low [...] for prolonged periods of time. After every may meal breakfast lunch and dinner I want [...] lab. Assessment & Plan (09/13/2020 12:16 PM DRYING MACHINE BACK TENDER): Patient is complaining of snoring at night and daytime sleepiness. She will need sleep study. 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 Assessment & Plan (09/13/2020 12:15 PM DRYING MACHINE BACK TENDER): Cough is likely due to rhinosinusitis. I will obtain inflammatory markers and IgE level. Start her on Nasonex and schedule her on Zyrtec. If IgE level is elevated start her on montelukast. Will also obtain PFTs with methacholine challenge test. Palpitations 12/13/2019 02/22/2022 Assessment & Plan (12/13/2019 1:52 PM CDT): TSH, BMP, Magnesium level soon non fasting at [facility] 24 hr holter monitor As soon as removes monitor in 24 hrs, start beta abhijeet med at hs for palpitations Continue Avapro therapy taking morning instead Limit stimulants keep caffeine and alcohol on the low Herpes zoster without complication 08/10/2019 02/22/2022 Assessment & Plan (08/10/2019 7:42 AM DRYING MACHINE BACK TENDER): Valtrex every 8 hours x 1 week. [...] symptoms develop, recommended follow-up with PCP. Immunizations Immunization Administration Dates Next Due Influenza, Quad, Adjuvantate [...] on file Legal Sex Female 4:00 AM DRYING MACHINE BACK TENDER Gender Identity Female 06/02/2020 7:58 PM CDT Sexual Orientation Straight 06/02/2020 7: 58 PM CDT Last Filed Vital Signs Vital Sign Reading Time Taken Comments Blood Pressure 128/64 05/26/2024 8:53 AM CDT Pulse 73 05/26/2024 8:33 AM CDT Temperature 36.4 C (97.5 F) 05/03/2024 7:44 AM CDT Respiratory Rate 18 12/16/2023 9:13 AM CDT Oxygen Saturation 97% 05/26/2024 8:33 AM CDT Inhaled Oxygen Concentration - - Weight 68.5 kg (151 lb) 07/13/2024 10:16 AM DRYING MACHINE BACK TENDER Height 160 cm (5' 3 ) 05/26/2024 8:33 AM CDT Body Mass Index 26.75 05/26/2024 8:33 AM CDT Plan of Treatment Not on file Procedures Procedure Name Priority Date/Time Associated Diagnosis Comments SCREENING MAMMOGRAM BILATERAL W HOMERO Schedule Routine, Read Routine (OP Routine) 07/13/2024 11:00 AM DRYING MACHINE BACK TENDER At high risk for breast cancer HM COLONOSCOPY Routine 05/25/2023 HEPATITIS C ANTIBODY Routine 08/28/2020 2:59 PM DRYING MACHINE BACK TENDER from Last 3 Months or Most Recently Relevant to Health Maintenance Results * Screening Mammogram Bilateral W Homero (07/13/2024 11:00 AM DRYING MACHINE BACK TENDER) Anatomical Region Laterality Modality Breast Bilateral Mammography Narrative 07/14/2024 4:34 PM DRYING MACHINE BACK TENDER Mammogram Technique: Bilateral Digital Breast Tomosynthesis, Bilateral C-view 2D Screening mammogram. Views obtained: bilateral craniocaudal and bilateral mediolateral oblique. Computer Aided Detection was performed. Mammogram Findings: The present examination has been compared to prior imaging studies performed at [facility] on 06/16/2021, 06/22/2022 and 06/28/2023. The breasts [...] CATEGORY 0: Incomplete: Need additional imaging evaluation. Procedure Note Rhoda Nevarez MD - 07/14/2024 Mammogram Technique: Bilateral Digital Breast Tomosynthesis, Bilateral C-view 2D Screening mammogram. Views obtained: bilateral craniocaudal and bilateral mediolateral oblique. Computer Aided Detection was performed. Mammogram Findings: The present examination has been compared to prior imaging studies performed at [facility] on 06/16/2021, 06/22/2022 and 06/28/2023. The breasts [...] Incomplete: Need additional imaging evaluation. Ridge Bravo NP IMG MAMMO PROCEDURES Final Result * (ABNORMAL) COLONOSCOPY (05/25/2023) Scribed Colonoscopy Abnormal Historical Provider MD HEALTH MAINTENANCE Final Result * Hepatitis C antibody (08/28/2020 2:59 PM DRYING MACHINE BACK TENDER) SCRIBED HCV ab neg EXTERNAL LAB Blood specimen (specimen) Historical Provider LAB MICROBIOLOGY - GENERA L ORDERABLES Final Result Performing Organization Address City/State/[facility] Co de Phone Number EXTERNAL LAB from Last 3 Months or Most Recently Relevant to Health Maintenance Insurance [facility]/PPO Address: [facility] [address] [place] [address] [facility]/PPO Address: [address] [address] Care Teams Messenger Copy Relationship Specialty Start Date End Date Cuca Brunson MD [address] [place] [id number] PCP - General 04/07/17 Long Stern MD [address] [facility] [address] GASTROENTEROLOGY [place], [place] [id number] Referring Physician Gastroenterology 05/31/23
--- OUTSIDE RECORDS SUMMARY | 2024-10-31 08:08 | XMS_ITS | Clinical Summary ---
Author Organization [facility] 2 Address [address] [facility] [place] [address] Care Team Providers Care Fence Erector Supervisor Name Role Phone Cuca Brunson MD Primary Care Provider [phone] Long Stern MD Unavailable + Allergies Active [...] 6% Assessment & Plan (09/28/2023 3:13 PM AUTOMAT CAR ATTENDANT): Ff no sugar diet Cont to walk [...] zoloft Assessment & Plan (09/28/2023 3:05 PM AUTOMAT CAR ATTENDANT): Doing well on low dose Rx sertraline and wants to continue stable Assessment & Plan (03/22/2023 7:29 PM CDT): Doing well on Rx sertraline and wants to continue Might benefit from change to cymbalta if weight gain continues or if it may help with her stress incont Assessment & Plan (09/03/2022 8:27 AM AUTOMAT CAR ATTENDANT): Doing well on sertraline and wants to continue Might benefit from change to cymbalta if weight gain continues or if it may help with her stress incont Frequent UTI 09/03/2022 Assessment & Plan (09/03/2022 8:34 AM AUTOMAT CAR ATTENDANT): Finish current abx Hydrate Hold oxybutinin while [...] intentional Assessment & Plan (08/23/2019 4:25 PM AUTOMAT CAR ATTENDANT): Work on wt loss Exercise regularly Annual [...] and establishing or updating healthcare power of privacy attorney document and providing our office with [...] maintenance. Assessment & Plan (08/28/2020 3:59 PM AUTOMAT CAR ATTENDANT): Wear sunscreen with SPF over 50 while [...] office. Assessment & Plan (08/23/2019 4:23 PM AUTOMAT CAR ATTENDANT): Wear sunscreen while outdoors. 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, dr Ramirez), maintained on NS and eye gtts OAB (overactive bladder) 12/16/2016 Overview (02/20/2019): On oxybutinin Assessment & Plan (05/03/2024 8:09 AM CDT): Not an issue at this time Cont to take the rx oxybutinin med, is helping stable Assessment & Plan (09/28/2023 3:05 PM AUTOMAT CAR ATTENDANT): Not an issue Cont to take the oxybutinin med, is helping stable Assessment & Plan (03/22/2023 7:29 PM CDT): Weak pelvic floor Cont prescribed oxybutinin Not been to a urologist Prone to UTIs Has been referred at the last visit to the urologist for recurrent UTIs Assessment & Plan (09/03/2022 8:24 AM AUTOMAT CAR ATTENDANT): Weak pelvic floor Cont oxybutinin Not been to a urologist Prone to UTIs Refer to uro Assessment & Plan (02/22/2022 4:53 PM CDT): Cont on oxybutinin therapy Pelvic floor exercises Assessment & Plan (03/04/2021 8:59 AM CDT): Cont on oxybutinin therapy Strong odor lately do a urine dip to rule out infection Assessment & Plan (08/28/2020 3:54 PM AUTOMAT CAR ATTENDANT): Cont on oxybutinin Wait on urine culture results from [place] Assessment & Plan (02/20/2019 4:35 PM CDT): Continue same regimen Dyslipidemia 06/17/2016 Assessment & Plan (05/03/2024 8:16 AM CDT): HDL is better, LDL is lower Cont diet low chol diet and lifestyle changes Switch to nut milk Assessment & Plan (09/28/2023 3:04 PM AUTOMAT CAR ATTENDANT): worsening on rx statin therapy continue prescription [...] trigs Assessment & Plan (09/03/2022 8:39 AM AUTOMAT CAR ATTENDANT): Better AST now normal Cont statin med [...] regimen. Assessment & Plan (08/28/2020 3:51 PM AUTOMAT CAR ATTENDANT): Pravastatin not getting chol to goal, change [...] Plan (05/03/2024 8:07 AM CDT): Cont under software integrator Stable BP on current regimen Sodium no longer low off hctz Cont the rx amlodipine 2.5, metoprolol and the irbesratan Assessment & Plan (09/28/2023 3:04 PM AUTOMAT CAR ATTENDANT): Stable continue prescription med Stop the hctz [...] irbesratan Assessment & Plan (09/03/2022 8:39 AM AUTOMAT CAR ATTENDANT): Follow low sodium DASH Diet. Exercise regularly [...] metoprolol. Assessment & Plan (08/28/2020 4:00 PM AUTOMAT CAR ATTENDANT): bp controlled Cont the same Ff low [...] lab. Assessment & Plan (09/13/2020 12:16 PM AUTOMAT CAR ATTENDANT): Patient is complaining of snoring at night and daytime sleepiness. She will need sleep study. 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 I will obtain inflammatory markers and IgE level. Start her on Nasonex and schedule her on Zyrtec. If IgE level is elevated start her on montelukast. Will also obtain PFTs with methacholine challenge test. Palpitations 12/13/2019 02/22/2022 Assessment & Plan (12/13/2019 1:52 PM CDT): TSH, BMP, Magnesium level soon non fasting at [facility] 24 hr holter monitor As soon as removes monitor in 24 hrs, start beta abhijeet med at hs for palpitations Continue Avapro therapy taking morning instead Limit stimulants keep caffeine and alcohol on the low Herpes zoster without complication 08/10/2019 02/22/2022 Assessment & Plan (08/10/2019 7:42 AM AUTOMAT CAR ATTENDANT): Valtrex every 8 hours x 1 week. [...] on file Legal Sex Female 4:00 AM AUTOMAT CAR ATTENDANT Gender Identity Female 06/02/2020 7:58 PM CDT [...] 68.5 kg (151 lb) 07/13/2024 10:16 AM AUTOMAT CAR ATTENDANT Height 160 cm (5' 3 ) 05/26/2024 [...] Read Routine (OP Routine) 07/13/2024 11:00 AM AUTOMAT CAR ATTENDANT At high risk for breast cancer HM COLONOSCOPY Routine 05/25/2023 HEPATITIS C ANTIBODY Routine 08/28/2020 2:59 PM AUTOMAT CAR ATTENDANT from Last 3 Months or Most Recently Relevant to Health Maintenance Results * Screening Mammogram Bilateral W Homero (07/13/2024 11:00 AM AUTOMAT CAR ATTENDANT) Anatomical Region Laterality Modality Breast Bilateral Mammography Narrative 07/14/2024 4:34 PM AUTOMAT CAR ATTENDANT Mammogram Technique: Bilateral Digital Breast Tomosynthesis, Bilateral C-view 2D Screening mammogram. Views obtained: bilateral craniocaudal and bilateral mediolateral oblique. Computer Aided Detection was performed. Mammogram Findings: The present examination has been compared to prior imaging studies performed at [facility] on 06/16/2021, 06/22/2022 and 06/28/2023. The [...] imaging studies performed at [facility] on 06/16/2021, 06/22/2022 and 06/28/2023. The [...] COLONOSCOPY (05/25/2023) Scribed Colonoscopy Abnormal Historical Provider HEALTH MAINTENANCE Final Result * Hepatitis C antibody (08/28/2020 2:59 PM AUTOMAT CAR ATTENDANT) SCRIBED HCV ab neg EXTERNAL LAB Blood specimen (specimen) Historical Provider LAB MICROBIOLOGY - GENERA L ORDERABLES Final Result EXTERNAL LAB from Last 3 Months or Most Recently Relevant to Health Maintenance Insurance [facility] Care Teams Fence Erector Supervisor Relationship Specialty Start Date End Date Cuca Brunson MD [facility] [address] PCP - General 04/07/17 Long Stern MD [address] [place] [address] Referring Physician Gastroenterology 05/31/23
--- OUTSIDE RECORDS SUMMARY | 2024-10-31 08:08 | XMS_ITS | Encounter Summary ---
Author Organization [facility] Address [address] [place] [address] Care Team Providers Care Casting Machine Operator Helper Name Role Phone Cuca Brunson MD Primary Care Provider + [phone] Unknown, Notinfile Primary Care Provider Unavail able Cuca Brunson MD Primary Care Provider + [phone] Long Stern MD Unavailable + Encounter Details Date Type Department Care Team (Late st Contact Info) Description 04/21/2012 Orders Only [facility] Health Information Management [address] [place] [address] Scanning, Provider Social History Tobacco Use Types Packs/Day Years Used Date Smoking Tobacco: Never Assessed Comments Unknown Sex and Gender Information Value Date Recorded Sex Assigned at Not on file Legal Sex Female 4:00 AM MANAGER TESTING Gender Identity Female 06/02/2020 7:58 PM CDT [...] on filedocumented in this encounter Care Teams Casting Machine Operator Helper Relationship Specialty Start Date End Date Cuca Brunson MD [address] [place] [id number] PCP - General 03/31/17 03/31/17 Unknown, Notinfile PCP - General 04/01/17 04/06/17 Cuca Brunson MD [address] [place] [id number] PCP - General 04/07/17 Long Stern MD [address] [place] [address] Referring Physician Gastroenterology 05/31/23 documented as of this encounter
[2024-10-31 08:40] LABS: Basophils Absolute Auto 0.1 K/mm3 (0.0-0.1); Basophils Percent Auto 1.1 % (0.2-1.2); Eosinophils Absolute Auto 0.5 K/mm3 (0-0.3); Eosinophils Percent Auto 9.1 % (0-4.4); Hematocrit 35.3 % (37.0-47.0); Hemoglobin 11.7 g/dL (12.0-15.0); Immature Granulocyte Absolute 0.02 K/mm3 (0.00-0.031); Immature Granulocyte Percent A 0.4 % (0-0.5); Lymphocytes Absolute Auto 1.85 K/mm3 (0.9-3.2); Lymphocytes Percent Auto 33.8 % (18.3-44.2); Mean Corpuscular HGB Conc 33.1 g/dl (32-36); Mean Corpuscular Hemoglobin 30.5 pg (26-34); Mean Corpuscular Volume 91.9 fl (80-100); Mean Platelet Volume 9.7 fl (7.4-10.4); Monocytes Absolute Auto 0.5 K/mm3 (0.1-0.6); Monocytes Percent Auto 9.7 % (2.6-8.5); Neutrophils Absolute Auto 2.5 K/mm3 (1.3-6.7); Neutrophils Percent Auto 45.9 % (45.5-73.1); Platelet Count Result 295 k/mm3 (150-375); Red Blood Count 3.84 M/mm3 (4.2-5.4); Red Cell Distribution Width 12.5 % (11.5-14.5); White Blood Count 5.5 K/mm3 (4.5-10.0)
[2024-10-31 08:54] LABS: Alanine Aminotransferase 17 U/L (6-35); Albumin Level 4.6 g/dL (3.5-5.1); Alkaline Phosphatase 86 U/L (38-126); Anion Gap 9 mmol/L (4-12); Aspartate Amino Transferase 30 U/L (14-36); Bilirubin,Total 0.6 mg/dL (0.2-1.3); Blood Urea Nitrogen 14 mg/dL (7-17); Calcium 9.8 mg/dL (8.4-10.2); Carbon Dioxide 28 mmol/L (22-30); Chloride 101 mmol/L (98-107); Cholesterol 225 mg/dL (0-200); Estimated Glomerular Filt Rate > 60; Glucose 106 mg/dL (65-110); HDL Direct 55 mg/dL; Potassium 4.2 mmol/L (3.4-5.0); Sodium 138 mmol/L (137-145); Triglycerides 206 mg/dL (<150)
[2024-10-31 09:05] LABS: LDL Cholesterol Direct 117 mg/dL
[2024-10-31 10:19] LABS: Hemoglobin A1C 5.9 % (<5.7)
== END 2024-10-31 07:56 | disposition home or self-care (01) ==
PROVIDERS: PCP Internal Medicine; Visit Provider Internal Medicine
DX: R73.09 Other abnormal glucose (principal); E78.5 Hyperlipidemia, unspecified; I10 Essential (primary) hypertension
CPT/HCPCS: 36415; 80053; 80061; 83036; 85025

== ENCOUNTER 2025-04-03 14:52 | Outpatient (CLI) | payer OTHER, SELFPAY ==
--- NOTE | ~2025-04-03 | DEXA_ITS ---
Bone Density Report Name: DRE ROSA Age: 65 Sex: Female Ethnicity: White Date of : 1960 Indication: postmenopausal; screening for osteoporosis; hysterectomy; Referring Provider: CHRISTOS, QING Krishnan Study: Bone densitometry was performed. Exam Date: April 03, 2025 Accession number: [id number] Bone Density: Region BMD T-score Z-score Classification AP Spine(L1-L4) 1.090 0.4 2.3 Normal Femoral Neck (Left) 0.752 -0.9 0.8 Normal Total Hip (Left) 0.918 -0.2 1.1 Normal Femoral Neck (Right) 0.746 -0.9 0.7 Normal Total Hip (Right) 0.930 -0.1 1.2 Normal Total Hip Mean 0.924 -0.2 1.2 Normal World Health Organization criteria for BMD impression classify patients as: Normal (T-score at or above -1.0), Osteopenia (T-score between -1.0 and -2.5), or Osteoporosis (T-score at or below -2.5). 10-year Fracture Risk: FRAX not reported because: All T-scores for Spine Total, Hip Total, Femoral Neck at or above -1.0 Previous Exams: -- Region Exam Age BMD T-score BMD Change BMD Change Date g/cm2 vs Baseline vs Previous -- AP Spine (L1-L4) 04/03/2025 65 1.090 0.4 1.6%# 1.6%# 04/21/2012 52 1.073 0.2 Total Hip(Left) 04/03/2025 65 0.918 -0.2 -5.5%# -5.5%# 04/21/2012 52 0.971 0.2 Total Hip(Right) 04/03/2025 65 0.930 -0.1 0.1%# 0.1%# 04/21/2012 52 0.929 -0.1 -- *Denotes significance at 95% confidence level, LSC for AP Spine = 0.022 g/cm2, LSC for Total Hip = 0.027 g/cm2 # Denotes dissimilar scan types or analysis methods Clinical Information Provided by Patient: Has used the following medications: YAM cream for PMS Has the following medical conditions: Hysterectomy Patient maximum height was 63 Menopause Age: 37 No regular weight bearing exercise Onset of menses at age 10 Number of children 2 Impression: The patient has normal bone mass. Unable to evaluate interval change due to the use of different scan modes. Discussion: BONE DENSITY IS ABOVE THE MINIMUM DESIRABLE LEVEL AT ALL SKELETAL SITES TESTED. This patient?s bone mineral density is above the minimum desirable level (T-score -1.0 or better) at all sites measured. The patient should follow a healthful lifestyle (good nutrition with adequate calcium and vitamin D, and appropriate weight-bearing exercise). Follow-Up: Consider repeating this study in 5 years or sooner if there is some new clinical indication. Reported by: EVELINE on 04/03/2025 3:19:00 PM. Reviewed, dictated and finalized at location A.
== END 2025-04-03 14:53 | disposition home or self-care (01) ==
LOC: MICIMG 14:53
PROVIDERS: PCP Internal Medicine; Visit Provider Internal Medicine
DX: Z13.820 Encounter for screening for osteoporosis (principal); Z78.0 Asymptomatic menopausal state
CPT/HCPCS: 77080

== ENCOUNTER 2025-04-26 14:23 | Outpatient (RCR) | payer OTHER, SELFPAY ==
--- NOTE | 2025-04-26 15:45 | STOPEVAL1 ---
Assessment and note entered by Brittany Mackay, BUSINESS PROCESS SPECIALIST Evaluation Information Assessment Status Evaluation Reported Pain Level Pain Score 0: Self Report Assessment ST Clinical Summary The patient is a 65 year old female referred for an outpatient speech evaluation to assess swallow function and r/o aspiration as a contributing factor to her chronic cough. She reports this has been an ongoing problem over the past 10 years but seems to have become progressively worse over the last year. She has been seen for a barium swallow and does taking omeprazole 2x daily for acid reflux. She has been evaluated by both an ENT and Manager Ob. She currently takes a daily allergy medicine and Mucinex every morning to reduce sinus drainage. She has no history or pneumonia, voice changes, or frequent respiratory infections. The patient was assessed with the following consistencies in the office: thin liquid/water, puree/pudding, and solid/cracker. Oral Stage: The patient demonstrates good lingual and labial range of movement and had timely oral preparation and transit for all consistencies. Pharyngeal Stage: The patient was observed to have a timely swallow initiation with good laryngeal elevation for all consistencies and no change in vocal quality such as (breathy, hoarse, or wet). The patient had a productive cough initially before completing any PO trials during the initial interview and again after trials of the soft solid/pudding. Although the patient demonstrated a productive cough reflex it does not appear directly related to swallow function and suspect it is more likely related to general sinus drainage and that certain textures or temperatures with food such as the cold pudding trigger sinus drainage resulting in a cough response. Discussed techniques that might benefit reducing the cough response such as specific lozenges, when sensing a cough taking a sip of liquid, or a producing a soft sigh to disrupt the reflex. An MBS Study maybe considered to r/o aspiration as a contributing factor if further testing is desired. No further speech services indicated at this time. Thank you for the consult. Plan of Care ST Services Indicated No These treatments will address the objective and functional deficits as defined above. The patient will be advanced safely and appropriately in order for the patient to progress towards his/her prior level of function. Additional exercises will be introduced and as well as a comprehensive home exercise program upon discharge, if needed, ?to ensure carryover of functional gains achieved in the clinic. This treatment plan has been reviewed and agreement upon by the patient.
--- NOTE | 2025-04-26 15:48 | STOPEVDC ---
Assessment and note entered by Brittany Mackay, JEWELRY MODEL MAKER Thank you for referring Vivi Clifford to [facility] An evaluation has been completed. No further treatment is needed. Evaluation Information Assessment Status Evaluation Reported Pain Level Pain Score 0: Self Report Assessment ST Clinical Summary The patient is a 65 year old female referred for an outpatient speech evaluation to assess swallow function and r/o aspiration as a contributing factor to her chronic cough. She reports this has been an ongoing problem over the past 10 years but seems to have become progressively worse over the last year. She has been seen for a barium swallow and does taking omeprazole 2x daily for acid reflux. She has been evaluated by both an ENT and Lead Manufacturing Engineer. She currently takes a daily allergy medicine and Mucinex every morning to reduce sinus drainage. She has no history or pneumonia, voice changes, or frequent respiratory infections. The patient was assessed with the following consistencies in the office: thin liquid/water, puree/pudding, and solid/cracker. Oral Stage: The patient demonstrates good lingual and labial range of movement and had timely oral preparation and transit for all consistencies. Pharyngeal Stage: The patient was observed to have a timely swallow initiation with good laryngeal elevation for all consistencies and no change in vocal quality such as (breathy, hoarse, or wet). The patient had a productive cough initially before completing any PO trials during the initial interview and again after trials of the soft solid/pudding. Although the patient demonstrated a productive cough reflex it does not appear directly related to swallow function and suspect it is more likely related to general sinus drainage and that certain textures or temperatures with food such as the cold pudding trigger sinus drainage resulting in a cough response. Discussed techniques that might benefit reducing the cough response such as specific lozenges, when sensing a cough taking a sip of liquid, or a producing a soft sigh to disrupt the reflex. An MBS Study maybe considered to r/o aspiration as a contributing factor if further testing is desired. No further speech services indicated at this time. Thank you for the consult. Plan of Care ST Services Indicated No
== END 2025-04-26 17:13 | disposition home or self-care (01) ==
LOC: ANHST 14:23
PROVIDERS: PCP Internal Medicine; Visit Provider Otolaryngology
DX: R05.3 Chronic cough (principal)
CPT/HCPCS: 92610

== ENCOUNTER 2025-05-16 07:15 | Outpatient (CLI) | payer OTHER, SELFPAY ==
[2025-05-16 08:04] LABS: Hematocrit 34.9 % (37.0-47.0); Hemoglobin 11.6 g/dL (12.0-15.0); Immature Granulocyte Percent A 0.4 % (0-0.5); Lymphocytes Absolute Auto 2.85 K/mm3 (0.9-3.2); Mean Corpuscular HGB Conc 33.2 g/dl (32-36); Mean Corpuscular Hemoglobin 30.2 pg (26-34); Mean Corpuscular Volume 90.9 fl (80-100); Nucleated Red Blood Cells Absolute Auto 0.000 K/mm3 (0.0-0.012); Nucleated Red Blood Cells Perc 0.0 % (0.0-0.2); Platelet Count Result 299 k/mm3 (150-375); Red Blood Count 3.84 M/mm3 (4.2-5.4); White Blood Count 7.0 K/mm3 (4.5-10.0)
[2025-05-16 08:12] LABS: Hemoglobin A1C 5.8 % (<5.7)
[2025-05-16 08:17] LABS: Alanine Aminotransferase 16 U/L (6-35); Albumin Level 4.6 g/dL (3.5-5.1); Alkaline Phosphatase 78 U/L (38-126); Anion Gap 8 mmol/L (4-12); Aspartate Amino Transferase 30 U/L (14-36); Bilirubin,Total 0.4 mg/dL (0.2-1.3); Blood Urea Nitrogen 19 mg/dL (7-17); Calcium 9.7 mg/dL (8.4-10.2); Carbon Dioxide 27 mmol/L (22-30); Chloride 98 mmol/L (98-107); Cholesterol 217 mg/dL (0-200); Estimated Glomerular Filt Rate > 60; Glucose 90 mg/dL (65-110); HDL Direct 63 mg/dL; Potassium 4.1 mmol/L (3.4-5.0); Sodium 133 mmol/L (137-145); Total Protein 7.5 g/dL (6.3-8.2); Triglycerides 266 mg/dL (<150)
[2025-05-16 08:53] LABS: Thyroid Stimulating Hormone 3.810 uIU/mL (0.465-4.680)
== END 2025-05-16 07:16 | disposition home or self-care (01) ==
PROVIDERS: PCP Internal Medicine; Visit Provider Internal Medicine
DX: F33.0 Major depressive disorder, recurrent, mild (principal); I10 Essential (primary) hypertension; E78.5 Hyperlipidemia, unspecified; R73.09 Other abnormal glucose
CPT/HCPCS: 36415; 80053; 80061; 82306; 83036; 84443; 85025

== ENCOUNTER 2025-07-07 18:56 | Emergency (ER) | payer OTHER, SELFPAY ==
--- NOTE | ~2025-07-07 | XR_ITS ---
EXAMINATION: XR chest 2V, 07/07/2025 19:42 MEDIA JOB TITLES HISTORY: Chest Pain COMPARISON: No comparisons available. Technique: 2 views obtained. Findings: The lungs are clear, no effusion. No pneumothorax. Heart is normal size. Mediastinal and hilar contours are within normal limits. Bony thorax no acute abnormality. Impression: No acute cardiopulmonary abnormality. Reviewed, dictated and finalized at location P. A JOB TITLES Impression: No acute cardiopulmonary abnormality.
--- NOTE | 2025-07-07 18:59 | ECG_ITS ---
Test Date: 2025-07-07 19:04:28 Measurements Intervals [place] Rate: 77 P: 49 AK: 166 QRS: -4 QRSD: 79 T: 57 QT: 368 QTc: 418 Interpretive Statements SINUS RHYTHM POOR R-WAVE PROGRESSION BORDERLINE ECG No previous ECG available for comparison Electronically Signed On 07-08-2025 09:16:16 MATERIAL MANAGER by Tahir Goncalves M.D.
[2025-07-07 19:07] VITALS: BP 188/86; PULSE 96; RESP 20; TEMP 36.9; O2SAT 100
[2025-07-07 19:26] LABS: Hematocrit 36.8 % (37.0-47.0); Hemoglobin 12.7 g/dL (12.0-15.0); Immature Granulocyte Percent A 0.4 % (0-0.5); Lymphocytes Absolute Auto 2.28 K/mm3 (0.9-3.2); Mean Corpuscular HGB Conc 34.5 g/dl (32-36); Mean Corpuscular Hemoglobin 30.6 pg (26-34); Mean Corpuscular Volume 88.7 fl (80-100); Nucleated Red Blood Cells Absolute Auto 0.000 K/mm3 (0.0-0.012); Nucleated Red Blood Cells Perc 0.0 % (0.0-0.2); Platelet Count Result 302 k/mm3 (150-375); Red Blood Count 4.15 M/mm3 (4.2-5.4); White Blood Count 7.9 K/mm3 (4.5-10.0)
[2025-07-07 19:48] LABS: INR 0.9; Partial Thromboplastin Time 25.9 Seconds (22.3-36.8); Prothrombin Time 12.5 Seconds (11.1-14.7)
[2025-07-07 20:20] LABS: Alanine Aminotransferase 21 U/L (6-35); Albumin Level 5.0 g/dL (3.5-5.1); Alkaline Phosphatase 116 U/L (38-126); Anion Gap 8 mmol/L (4-12); Aspartate Amino Transferase 40 U/L (14-36); Bilirubin,Total 0.3 mg/dL (0.2-1.3); Blood Urea Nitrogen 19 mg/dL (7-17); Calcium 10.1 mg/dL (8.4-10.2); Carbon Dioxide 27 mmol/L (22-30); Chloride 97 mmol/L (98-107); Estimated Glomerular Filt Rate 55; Glucose 113 mg/dL (65-110); Lipase 80 U/L (23-300); Potassium 4.1 mmol/L (3.4-5.0); Sodium 132 mmol/L (137-145); Total Protein 8.2 g/dL (6.3-8.2)
[2025-07-07 20:31] LABS: Troponin I < 0.012 ng/mL (0.000-0.034)
[2025-07-07 21:28] VITALS: O2SAT 95
[2025-07-07] MEDS: SODIUM CHLORIDE 0.9% IV 1,000 ML 999 ML IV CONT (21:43)
[2025-07-07 21:48] VITALS: BP 190/80; PULSE 90; RESP 20; TEMP 36.6; O2SAT 95
[2025-07-07] MEDS: IPRATROPIUM 0.5 MG/ALBUTEROL SULFATE 2.5 MG (BASE) AMPUL.NEB 3 ML INHALATION (21:52)
[2025-07-07 21:55] VITALS: PULSE 91; RESP 15
--- NOTE | 2025-07-07 21:58 | ECG_ITS ---
Test Date: 2025-07-07 22:04:43 Measurements Intervals [place] Rate: 87 P: 46 SD: 172 QRS: -8 QRSD: 75 T: 43 QT: 350 QTc: 422 Interpretive Statements SINUS RHYTHM POOR R-WAVE PROGRESSION VOLTAGE CRITERIA FOR LVH BORDERLINE ECG Compared to ECG 07/07/2025 19:04:28 MORE R-WAVE VOLTAGE IN AVL Electronically Signed On 07-08-2025 09:18:02 FOOD SERVICE UTILITY WORKER by Tahir Goncalves M.D.
--- NOTE | 2025-07-07 22:03 | ED.CHESTPAIN ---
HPI - Chest Pain General Chief Complaint: Chest Pain Stated Complaint: chest pain Time Seen by Provider: 07/07/25 21:26 History of Present Illness HPI narrative: Patient is a 65-year-old female who presents to the ER with chest tightness. She reports the pain started around 5:00 p.m. this evening. She reports she took a Vance aspirin around 5:20 p.m. but the pain had already subsided by this time. Patient reports she took her blood pressure and it was in the 180s systolic. She reports she has a history of high blood pressure and takes her medication as prescribed. Pt also endorses a strong productive cough that has been present for the past couple of days. She endorses a history of a chronic cough, hyperlipidemia, and GERD. Related Data Home Medications ?Medication ?Instructions ?Recorded ?Confirmed ?Last Taken ?Type irbesartan 300 mg tablet 300 mg PO DAILY 04/14/21 06/11/25 05/24/23 History metoprolol succinate 50 mg 50 mg PO DAILY 04/14/21 06/11/25 05/24/23 History tablet,extended release 24 hr oxybutynin chloride 15 mg 15 mg PO DAILY 09/24/21 06/11/25 05/24/23 History tablet,extended release 24 hr rosuvastatin 10 mg tablet 10 mg PO DAILY 09/24/21 06/11/25 05/24/23 History sertraline 25 mg tablet 25 mg PO DAILY 09/24/21 06/11/25 05/24/23 History montelukast 10 mg tablet 10 mg PO DAILY 04/04/22 06/11/25 05/24/23 History amlodipine 5 mg tablet 2.5 mg PO DAILY 05/05/23 06/11/25 05/24/23 History omeprazole 40 mg capsule,delayed 40 mg PO DAILY 05/05/23 06/11/25 05/24/23 History release Allergies Allergy/AdvReac Type Severity Reaction Status Date / Time clarithromycin AdvReac Intermediate NAUSEA/VOMI Verified 06/11/25 08:34 TING levofloxacin AdvReac Intermediate Abdominal Verified 06/11/25 08:34 Pain lisinopril AdvReac Intermediate COUGH Verified 06/11/25 08:34 Review of Systems Review of Systems: All systems reviewed & are unremarkable except as noted in HPI and below PMFSH Past Medical History Medical History Elevated liver enzymes Throat clearing Chronic cough Abnormal CT scan, colon Abnormal CT scan, stomach Epigastric pain Left knee pain Heart disease Overactive bladder Hyperlipidemia Depression Hypertension Surgical History Surgical History H/O: hysterectomy No significant past surgical history Family History Family History Other Hypertension Social History Social History Smoking status: Never smoker Tobacco type: cigarettes Alcohol intake: current Alcohol use details: 4-6 drinks monthly Substance use: never Substance use type: does not use Living arrangements: with family Occupation/Education: occupation Gender identity (if verbalized by the patient): Female Spiritual care concerns: No Exam Narrative: GENERAL: Well appearing, well-nourished, non-toxic, in no acute distress. HEAD: Normocephalic, atraumatic. NECK: Supple. No adenopathy, no masses. RESPIRATORY: Airway patent, respirations nonlabored. Crackles right lower lobe. No audible wheezing. CARDIOVASCULAR: Regular rate and rhythm without murmurs, rubs, or gallops. Peripheral pulses 2+ and equal bilaterally. ABDOMINAL: Soft, nontender, nondistended, no hepatosplenomegaly. Normoactive BS. MUSCULOSKELETAL: Moves all extremities. Strength/ROM intact without gross deformities. SKIN: Warm, dry, normal color. No rashes. NEURO: A&O X3. Speech clear. Cranial nerves II-XII intact. No ataxic movements. PSYCHIATRIC: Appropriate mood and affect. Normal interaction. Course Vital Signs Vital signs: Vital Signs Temperature 36.9 C 07/07/25 19:07 Pulse Rate 96 07/07/25 19:07 Respiratory Rate 20 07/07/25 19:07 Blood Pressure 188/86 H 07/07/25 19:07 Pulse Oximetry 100 07/07/25 19:07 Temperature 36.6 C 07/07/25 21:48 Pulse Rate 97 07/07/25 23:09 Respiratory Rate 18 07/07/25 23:09 Blood Pressure 166/86 H 07/07/25 23:09 Pulse Oximetry 97 11/29/25 23:09 Oxygen Delivery Autopap 07/07/25 21:28 MDM - Chest Pain MDM Narrative Medical decision making narrative: Patient is a 65-year-old female who presents to the ER with chest tightness. She reports the pain started around 5:00 p.m. this evening. She reports she took a Vance aspirin around 5:20 p.m. but the pain had already subsided by this time. Patient reports she took her blood pressure and it was in the 180s systolic. She reports she has a history of high blood pressure and takes her medication as prescribed. Pt also endorses a strong productive cough that has been present for the past couple of days. She endorses a history of a chronic cough, hyperlipidemia, and GERD. Labs Ordered: CBC, CMP, COVID/flu/RSV, proBNP, troponin, lipase, PTT, INR, D-dimer Imaging Ordered: Chest x-ray Medications Ordered: DuoNeb, 1 L normal saline IV bolus, Azithromycin PO, Augmentin PO Results: Pt's chest x-ray indicates The lungs are clear, no effusion. No pneumothorax. Heart is normal size. Mediastinal and hilar contours are within normal limits. Bony thorax no acute abnormality. Diagnosis: Hypertension, pneumonia Risks: HEART score: moderate risk HEART Score for Major Cardiac Events from [email or web address] on 07/07/2025 All calculations should be rechecked by clinician prior to use RESULT SUMMARY: 5 points Moderate Score (4-6 points) Risk of MACE of 12-16.6%. INPUTS: History ?> 1 = Moderately suspicious EKG ?> 1 = Non-specific repolarization disturbance Age ?> 2 = >=5 Risk factors ?> 1 = 1-2 risk factors Initial troponin ?> 0 = <Normal limit Consults: cardiology (outpatient), already established with Dr. Lugo Patient Education/Shared MDM: Results of lab work and imaging shared with patient. Pt reports she has a history of low sodium. She endorses improvement of symptoms following duo neb administration. Her blood pressure has come down nicely to 160s/70s following 1L NS IV bolus. Patient strongly advised to maintain hydration status upon discharge and follow-up with her non destructive testing engineer and/or PCP as soon as possible for further evaluation. She was instructed to increase her Amlodipine dose from 2.5mg to 5mg if she has another elevated blood pressure reading at home. Pt has been on this dosage in the past and believes she tolerated it well. She will be discharged home with a prescription for Augmentin, Azithromycin, an albuterol inhaler, and Tessalon Perles. Strict return precautions provided. Patient verbalized understanding and is in agreement with plan. Vital signs stable at time of discharge. All questions answered. Differential Diagnosis Differential diagnosis: Likely atypical chest pain, st elevation myocardial infarction, costochondritis and other (Pneumonia, hypertension, GERD) Lab Data Attestation: I reviewed the patient's lab results. 07/07/25 19:16 07/07/25 19:16 Labs: Lab Results 07/07/25 07/07/25 07/07/25 Range/Units 19:16 22:04 22:05 WBC 7.9 (4.5-10.0) K/mm3 RBC 4.15 L (4.2-5.4) M/mm3 Hgb 12.7 (12.0-15.0) g/dL Hct 36.8 L (37.0-47.0) % MCV 88.7 (80-100) fl MCH 30.6 (26-34) pg MCHC 34.5 (32-36) g/dl RDW 11.9 (11.5-14.5) % Plt Count 302 (150-375) k/mm3 MPV 9.1 (7.4-10.4) fl Immature Gran % (Auto) 0.4 (0-0.5) % Neut % (Auto) 55.7 (45.5-73.1) % Lymph % (Auto) 28.8 (18.3-44.2) % [place] % (Auto) 10.1 H (2.6-8.5) % Eos % (Auto) 4.0 (0-4.4) % Baso % (Auto) 1.0 (0.2-1.2) % Lymph # (Auto) 2.28 (0.9-3.2) K/mm3 [place] # (Auto) 0.8 H (0.1-0.6) K/mm3 Eos # (Auto) 0.3 (0-0.3) K/mm3 Baso # (Auto) 0.1 (0.0-0.1) K/mm3 Abs Immat Gran (auto) 0.03 (0.00-0.031) K/mm3 Absolute Neuts (auto) 4.4 (1.3-6.7) K/mm3 Absolute Nucleated RBC 0.000 (0.0-0.012) K/mm3 Nucleated RBC % 0.0 (0.0-0.2) % PT 12.5 (11.1-14.7) Seconds INR 0.9 APTT 25.9 (22.3-36.8) Seconds D-Dimer 0.36 (<0.48) ug/mL Sodium 132 L (137-145) mmol/L Potassium 4.1 (3.4-5.0) mmol/L Chloride 97 L (98-107) mmol/L Carbon Dioxide 27 (22-30) mmol/L Anion Gap 8 (4-12) mmol/L BUN 19 H (7-17) mg/dL Creatinine 1.00 (0.7-1.0) mg/dL Estim Creat Clear Calc Not Reportable Estimated GFR 55 L (59 - ) Glucose 113 H (65-110) mg/dL Calcium 10.1 (8.4-10.2) mg/dL Total Bilirubin 0.3 (0.2-1.3) mg/dL AST 40 H (14-36) U/L ALT 21 (6-35) U/L Alkaline Phosphatase 116 (38-126) U/L Troponin I < 0.012 < 0.012 (0.000-0.034) ng/mL NT-Pro-B Natriuret Pep 172 H (19.9-100) pg/mL Total Protein 8.2 (6.3-8.2) g/dL Albumin 5.0 (3.5-5.1) g/dL Lipase 80 (23-300) U/L TSH (Reflex) 3.210 (0.465-4.68) uIU/mL Influenza A (RT-PCR) Negative (Negative) Influenza B (RT-PCR) Negative (Negative) RSV (RT-PCR) Negative (Negative) SARS-CoV-2 RNA (RT-PCR) Negative (Negative) Imaging Data Attestation: I personally reviewed and interpreted this imaging study as follows: Radiologist's impression: Impressions Chest X-Ray 07/07/25 19:58 Impression: No acute cardiopulmonary abnormality. Discharge Plan Discharge Clinical Impression: Pneumonia, Hypertension, Atypical chest pain, Dehydration, mild Patient Disposition: Home Condition: Stable Instructions: Antibiotic Form, Pneumonia (ED) Additional Instructions: Please return to the ER with any worsening symptoms. Follow-up with primary care provider and/or Cardiology as soon as possible for further evaluation and treat. Take all medications as prescribed, including regularly scheduled medications. Please complete your full dose of antibiotics. Remember to drink lots of water. You may take Tessalon Perles as needed to treat your cough. You may also use an inhaler to help with any symptoms of shortness of breath. Patient Language: Syriac Prescriptions: New azithromycin 250 mg tablet See Rx Instructions .ROUTE .COMPLEX Qty: 6 0RF Rx Instructions: For 250 mg dose pack: take 500 mg today (day 1), then 250 mg for 4 days (days 2-5) benzonatate 100 mg capsule 100 mg PO TID Qty: 20 0RF amoxicillin-pot clavulanate 875-125 mg tablet 1 tablet PO Q12H Qty: 20 0RF albuterol sulfate [Ventolin HFA] 90 mcg/actuation HFA aerosol inhaler 2 puff inhalation QID PRN (Reason: shortness of breath or wheezing) Qty: 8.5 0RF No Action guaifenesin [Mucinex] 1,200 mg tablet extended release 12hr 1,200 mg PO BID Qty: 20 0RF metoprolol succinate 50 mg tablet extended release 24 hr 50 mg PO DAILY irbesartan 300 mg tablet 300 mg PO DAILY montelukast 10 mg tablet 10 mg PO DAILY amlodipine 5 mg tablet 2.5 mg PO DAILY sertraline 25 mg tablet 25 mg PO DAILY oxybutynin chloride 15 mg tablet extended release 24 hr 15 mg PO DAILY rosuvastatin 10 mg tablet 10 mg PO DAILY omeprazole 40 mg capsule,delayed release(DR/EC) 40 mg PO DAILY Follow-up/Referrals: Michael Lugo MD [Physician, Interventional Cardiology] Nannette,Cuca Krishnan MD [Primary Care Provider, Unknown] Time of Disposition: 23:51
[2025-07-07 22:08] LABS: NT Pro B Type Natriuretic Pept 172 pg/mL (19.9-100)
[2025-07-07 22:30] LABS: Thyroid Stimulating Hormone Reflex 3.210 uIU/mL (0.465-4.68)
[2025-07-07 22:32] LABS: Troponin I < 0.012 ng/mL (0.000-0.034)
--- OUTSIDE RECORDS SUMMARY | 2025-07-07 22:40 | XMS_ITS | Encounter Summary ---
Author Organization [facility] Facility Care Team Providers Care Manager Business Development Hospice Name Role Phone Cuca Brunson MD Primary Care Provider + [phone] Unknown, Notinfile Primary Care Provider Unavail able Cuca Brunson MD Primary Care Provider + [phone] Long Stern MD Unavailable + Robert Escobedo MD Unavailable +[phone] Radha Leonard Unavailable + [phone] Damian Bravo DPM Unavailable [phone] Encounter Details Date Type Department Care Team (Latest Contact Info) Description 12/15/2016 Orders Only [facility]INCON[facility] ProviderCelso MD [address] [place] [address] Social History Tobacco Use Types Packs/Day Years Used Date Smoking Tobacco: Never Alcohol Use Standard Drinks/Week Comments Yes 0 (1 standard drink = 0.6 oz pur e alcohol) Comments Unknown Sex and Gender Information Value Date Recorded Sex Assigned at Not on file Legal Sex Female 4:00 AM DIRECTOR CHECK Gender Identity Female 06/02/2020 7:58 PM CDT Sexual Orientation Straight 06/02/2020 7: 58 PM CDT documented as of this encounter Functional Status documented as of this encounter Plan of [...] on filedocumented in this encounter Care Teams Manager Business Development Hospice Relationship Specialty Start Date End Date Cuca Brunson MD [address] [place] [address] PCP - General 03/31/17 03/31/17 Unknown, Notinfile PCP - General 04/01/17 04/06/17 Cuca Brunson MD [address] [place] [address] PCP - General 04/07/17 Long Stern MD [address] [place] [address] Referring Physician Gastroenterology 05/31/23 Robert Escobedo MD [address] [place] [address] Otolaryngology 11/02/24 Radha Leonard PA [address] [place] [address] Pulmonary Disease 11/02/24 Damian Bravo, SONNY [facility] [facility] [place] [address] Consulting Physician Podiatry 05/24/25 documented as of this encounter
--- OUTSIDE RECORDS SUMMARY | 2025-07-07 22:40 | XMS_ITS | Encounter Summary ---
Author Organization [facility] Facility Care Team Providers Care Regional Engineer Name Role Phone Cuca Brunson MD Primary Care Provider + [phone] Lnog Stern MD Unavailable + Robert Escobedo MD Unavailable [phone] Radha Leonard Unavailable + [phone] Damian Bravo DPM Unavailable [phone] Encounter Details Date Type Department Care Team (Latest Contact Info) Description 04/06/2018 Orders Only [facility] CLINCONV ProviderCelso MD [address] [place] [address] Social History Tobacco Use Types Packs/Day Years Used Date Smoking Tobacco: Never Smokeless Tobacco: Never Alcohol Use Standard Drinks/Week Comments Yes 0 (1 standard drink = 0.6 oz pur e alcohol) Comments No Sex and Gender Information Value Date Recorded Sex Assigned at Not on file Legal Sex Female 4:00 AM ANATOMICAL EMBALMER Gender Identity Female 06/02/2020 7:58 PM CDT [...] on filedocumented in this encounter Care Teams Regional Engineer Relationship Specialty Start Date End Date Cuca Brunson MD [address] [address] PCP - General 04/07/17 Long Stern MD [address] [place] [address] Referring Physician Gastroenterology 05/31/23 Robert Escobedo MD [facility] [place] [address] Otolaryngology 11/02/24 Radha Leonard PA [address] [address] Pulmonary Disease 11/02/24 Damian Bravo DPM [address] [facility] [place] [address] Consulting Physician Podiatry 05/24/25 documented as of this encounter
--- OUTSIDE RECORDS SUMMARY | 2025-07-07 22:40 | XMS_ITS | Encounter Summary ---
Author Organization [facility] Address [address] [facility] [address] [place] [address] Care Team Providers Care Recruitment And Outreach Assistant Name Role Phone Cuca Brunson MD Primary Care Provider + [phone] Unknown, Notinfile Primary Care Provider Unavail able Cuca Brunson MD Primary Care Provider + [phone] Long Stern MD Unavailable + Robert Escobedo MD Unavailable [phone] Radha Leonard Unavailable + [phone] Damian Bravo DPM Unavailable [phone] Encounter Details Date Type Department Care Team (Late st Contact Info) Description 04/21/2012 Orders Only [facility] [place] [facility] [address] [place] [address] Scanning, Provider Social History Tobacco Use Types Packs/Day Years Used Date Smoking Tobacco: Never Assessed Comments Unknown Sex and Gender Information Value Date Recorded Sex Assigned at Not on file Legal Sex Female 4:00 AM COMPRESSED GASES TESTER Gender Identity Female 06/02/2020 7:58 PM CDT [...] on filedocumented in this encounter Care Teams Recruitment And Outreach Assistant Relationship Specialty Start Date End Date Cuca Brunson MD [address] [place] [address] PCP - General 03/31/17 03/31/17 Unknown, Notinfile PCP - General 04/01/17 04/06/17 Cuca Brunson MD [address] [place] [address] PCP - General 04/07/17 Long Stern MD [address] [place] [address] Referring Physician Gastroenterology 05/31/23 Roebrt Escobedo MD [address] [place] [address] Otolaryngology 11/02/24 Radha Leonard PA [address] [place] [address] Pulmonary Disease 11/02/24 Damian Bravo, DPHari [address] [facility] [place] [address] Consulting Physician Podiatry 05/24/25 documented as of this encounter
--- OUTSIDE RECORDS SUMMARY | 2025-07-07 22:40 | XMS_ITS | Encounter Summary ---
Author Organization [facility] Facility Care Team Providers Care E Mail System Administrator Name Role Phone Cuca Brunson MD Primary Care Provider + [phone] Unknown, Notinfile Primary Care Provider Unavail able Cuca Brunson MD Primary Care Provider + [phone] Long Stern MD Unavailable + Robert Escobedo MD Unavailable [phone] Radha Leonard Unavailable + [phone] Damian Bravo DPM Unavailable [phone] Encounter Details Date Type Department Care Team (Latest Contact Info) Description 06/16/2016 Orders Only [facility] CLINCONV ProviderCelso MD [address] [place] [address] Social History Tobacco Use Types Packs/Day Years Used Date Smoking Tobacco: Never Alcohol Use Standard Drinks/Week Comments Yes 0 (1 standard drink = 0.6 oz pur e alcohol) Comments Unknown Sex and Gender Information Value Date Recorded Sex Assigned at Not on file Legal Sex Female 4:00 AM ASSEMBLER FOR PULLER OVER HAND Gender Identity Female 06/02/2020 7:58 PM CDT Sexual Orientation Straight 06/02/2020 7: 58 PM CDT documented as of this encounter Functional Status documented as of this encounter Plan of Treatment Not on file documented as of this encounter Procedures Procedure Name Priority Date/Time Associated Diagnosis Comments SCAN - LABS 06/22/2016 12:00 AM ASSEMBLER FOR PULLER OVER HAND SCAN - LABS 06/17/2016 12:00 AM ASSEMBLER FOR PULLER OVER HAND documented in this encounter Results * SCAN - LABS (06/22/2016 12:00 AM ASSEMBLER FOR PULLER OVER HAND) Narrative 06/22/2016 12:00 AM ASSEMBLER FOR PULLER OVER HAND Ordered by an unspecified provider. us Historical Provider Final Res ult * SCAN - LABS (06/17/2016 12:00 AM ASSEMBLER FOR PULLER OVER HAND) Narrative 06/17/2016 12:00 AM ASSEMBLER FOR PULLER OVER HAND Ordered by an unspecified provider. us Historical Provider Final Res ult documented in this encounter Visit Diagnoses Not on filedocumented in this encounter Care Teams E Mail System Administrator Relationship Specialty Start Date End Date Cuca Brunson MD [address] [place] [address] PCP - General 03/31/17 03/31/17 Unknown, Notinfile PCP - General 04/01/17 04/06/17 Cuca Brunson MD [address] [place] [address] PCP - General 04/07/17 Long Stern MD [address] [place] [address] Referring Physician Gastroenterology 05/31/23 Robert Escobedo MD [address] [place] [address] Otolaryngology 11/02/24 Radha Leonard PA [address] [address] Pulmonary Disease 11/02/24 Damian Bravo, DPM [address] [facility] [place] [address] Consulting Physician Podiatry 05/24/25 documented as of this encounter
--- OUTSIDE RECORDS SUMMARY | 2025-07-07 22:40 | XMS_ITS | Encounter Summary ---
Author Organization [facility] Facility Care Team Providers Care Coupler Name Role Phone Cuca Brunson MD Primary Care Provider + [phone] Unknown, Notinfile Primary Care Provider Unavail able Cuca Brunson MD Primary Care Provider + [phone] Long Stern MD Unavailable + Robert Escobedo MD Unavailable [phone] Radha Leonard Unavailable + [phone] Damian Bravo DPM Unavailable [phone] Encounter Details Date Type Department Care Team (Latest Contact Info) Description 12/18/2016 Orders Only [facility] CLINCONV ProviderCelso MD [address] [place] [address] Social History Tobacco Use Types Packs/Day Years Used Date Smoking Tobacco: Never Alcohol Use Standard Drinks/Week Comments Yes 0 (1 standard drink = 0.6 oz pur e alcohol) Comments Unknown Sex and Gender Information Value Date Recorded Sex Assigned at Not on file Legal Sex Female 4:00 AM PURSE SEINING HAND Gender Identity Female 06/02/2020 7:58 PM [...] on filedocumented in this encounter Care Teams Coupler Relationship Specialty Start Date End Date Cuca Brunson MD [address] [place] [address] PCP - General 03/31/17 03/31/17 Unknown, Notinfile PCP - General 04/01/17 04/06/17 Cuca Brunson MD [address] [place] [address] PCP - General 04/07/17 Long Stern MD [address] [place] [address] Referring Physician Gastroenterology 05/31/23 Robert Escobedo MD [address] [place] [address] Otolaryngology 11/02/24 Radha Leonard PA [address] [address] Pulmonary Disease 11/02/24 Damian Bravo, SONNY [address] [facility] [place] [address] Consulting Physician Podiatry 05/24/25 documented as of this encounter
--- OUTSIDE RECORDS SUMMARY | 2025-07-07 22:40 | XMS_ITS | Encounter Summary ---
Author Organization [facility] Facility Care Team Providers Care Braider Tender Name Role Phone Cuca Brunson MD Primary Care Provider + [phone] Long Stern MD Unavailable + Robert Escobedo MD Unavailable [phone] Radha Leonard Unavailable + [phone] Damian Bravo DPM Unavailable [phone] Encounter Details Date Type Department Care Team (Latest Contact Info) Description 06/14/2017 Orders Only [facility] CLINCONV ProviderCelso MD [address] [place] [address] Social History Tobacco Use Types Packs/Day Years Used Date Smoking Tobacco: Never Alcohol Use Standard Drinks/Week Comments Yes 0 (1 standard drink = 0.6 oz pur e alcohol) Comments Unknown Sex and Gender Information Value Date Recorded Sex Assigned at Not on file Legal Sex Female 4:00 AM SENIOR GEOLOGIST Gender Identity Female 06/02/2020 7:58 PM CDT Sexual Orientation Straight 06/02/2020 7: 58 PM CDT documented as of this encounter Functional Status documented as of this encounter Plan of Treatment Not on file documented as of this encounter Procedures Procedure Name Priority Date/Time Associated Diagnosis Comments SCAN - LABS 06/18/2017 12:00 AM SENIOR GEOLOGIST SCAN - LABS 06/16/2017 12:00 AM SENIOR GEOLOGIST documented in this encounter Results * SCAN - LABS (06/18/2017 12:00 AM SENIOR GEOLOGIST) Narrative 06/18/2017 12:00 AM SENIOR GEOLOGIST Ordered by an unspecified provider. Historical Provider MD Final Res ult * SCAN - LABS (06/16/2017 12:00 AM SENIOR GEOLOGIST) Narrative 06/16/2017 12:00 AM SENIOR GEOLOGIST Ordered by an unspecified provider. Historical Provider Final Res ult documented in this encounter Visit Diagnoses Not on filedocumented in this encounter Care Teams Braider Tender Relationship Specialty Start Date End Date Cuca Brunson MD [address] [place] [address] PCP - General 04/07/17 Long Stern MD [address] [place] [address] Referring Physician Gastroenterology 05/31/23 Robert Escobedo MD [address] [place] [address] Otolaryngology 11/02/24 Radha Leonard PA [address] [address] Pulmonary Disease 11/02/24 Damian Bravo, SONNY [address] [facility] [place] [place] [address] Consulting Physician Podiatry 05/24/25 documented as of this encounter
--- OUTSIDE RECORDS SUMMARY | 2025-07-07 22:41 | XMS_ITS | Clinical Summary ---
Author Organization [facility] 2 Address [address] [facility] [place] [address] Care Team Providers Care Literacy Teacher Name Role Phone Cuca Brunson MD Primary Care Provider + [phone] Long Stern MD Unavailable + Robert Escobedo MD Unavailable [phone] Radha Leonard Unavailable + [phone] Damian Bravo DPM Unavailable [phone] Allergies Active Allergy Reactions Criticality Noted Date Comments Clarithromycin Vomiting Low 11/29/2018 vomitting Levofloxacin Stomach upset Low 04/06/2018 Lisinopril Cough Low 11/29/2018 cough Medications cholecalciferol (VITAMIN D3) 2,000 unit tablet take 1 by Oral route 2 times every day 0 0 6 Active guaiFENesin ER (MUCINEX) 600 mg 12 hr tablet Take 2 tablets (1,200 mg total) by mouth 2 (two) times a day Active cetirizine (ZyrTEC) 10 mg tablet Take 1 tablet (10 mg total) by mouth daily Active sertraline (ZOLOFT) 50 mg tablet TAKE 1 TABLET BY MOUTH DAILY 90 tablet 3 4 Active budesonide (RHINOCORT AQUA) 32 mcg/actuation nasal spray SHAKE LIQUID AND USE 1 SPRAY IN EACH NOSTRIL DAILY 8.43 mL 1 4 Active Additional Information Patient not taking.Reported on 05/24/2025 oxyBUTYnin XL (DITROPAN XL) 15 mg 24 hr tabletIndication s:OAB (overactive bladder) Take 1 tablet (15 mg total) by mouth daily 90 tablet 3 5 Active omeprazole (PriLOSEC) 20 mg capsule Take 1 capsule (20 mg total) by mouth daily 90 capsule 3 5 09/29/19 26 Active montelukast (SINGULAIR) 10 mg tablet Take 1 tablet (10 mg total) by mouth nightly 90 tablet 3 5 Active Xhance 93 mcg/actuation aerosol breath activated 2 SPRAYS IN EACH NOSTRIL NASALLY TWICE A DAY 30 DAYS 5 Active ipratropium (ATROVENT) 21 mcg (0.03 %) nasal spray Administer 2 sprays into each nostril 2 (two) times a day 5 Active rosuvastatin (CRESTOR) 10 mg tablet Take 1 tablet (10 mg total) by mouth daily 90 tablet 3 5 Active omeprazole (PriLOSEC) 40 mg capsule TAKE 1 CAPSULE BY MOUTH DAILY 0.5 TO 1 HOUR BEFORE BREAKFAST 5 Active irbesartan (AVAPRO) 300 mg tablet TAKE 1 TABLET BY MOUTH DAILY 90 tablet 1 5 Active metoprolol XL (TOPROL-XL) 50 mg extended release tabletIndication s:Essential hypertension TAKE 1 TABLET(50 MG) BY MOUTH EVERY NIGHT 100 tablet 1 5 Active amLODIPine (NORVASC) 2.5 mg tablet TAKE 1 TABLET(2.5 MG) BY MOUTH DAILY 90 tablet 1 5 Active Active Problems Problem Noted Date Diagnosed Date Current use of proton pump inhibitor 05/24/2025 Assessment & Plan (05/24/2025 4:08 PM CDT): Check iron, b12, folate, vit D Check dexa scan periodically, at risk for OP and bone loss Calcium and vit D rich diet Iron rich diet Monitor renal function, at risk for CKD LATOYA (obstructive sleep apnea) 11/02/2024 Overview (11/02/2024): On CPAP nightly, compliant Radha Leonard, ISAC managing Marilu Garcia [facility] Escobedo Assessment & Plan (05/24/2025 4:04 PM CDT): Compliant on CPAP, compliant Forgetfulness 11/02/2024 Assessment & Plan (11/02/2024 3:32 PM CDT): Did not get CT brain as pev ordered Dense breast tissue 11/02/2024 Overview (11/02/2024): [facility] Mammogram with contrast anually Abnormal glucose 09/28/2023 Overview (05/24/2025): 09/2023 A1c 6% 10/2024 A1c 5.9% 05/2025 A1c 5.8 Assessment & Plan (05/24/2025 4:02 PM CDT): Improving A1c down to 5.8 % Follow low carbohydrate high-protein diet. Avoid eating sugars. Patient should read labels and make sure there are no ingredients that contain added sugar, or fructose, sucrose or anything ends in OSE. Exercise regularly, limit food portions. Follow proper serving sizes. Cont to exercise regularly Assessment & Plan (11/02/2024 3:13 PM CDT): Improving A1c down to 5.9% Follow low carbohydrate high-protein diet. Avoid eating sugars. Patient should read labels and make sure there are no ingredients that contain added sugar, or fructose, sucrose or anything ends in OSE. Exercise regularly, limit food portions. Follow proper serving sizes. Work on add'l weight loss. Assessment & Plan (09/28/2023 3:13 PM POWER PLANT MECHANIC): Ff no sugar diet Cont to walk on the treadmill Monitor a1c Gastroesophageal reflux disease 05/31/2023 Overview (11/02/2024): History of superficial gastritis EGD 05/25/2023 Dr Chinmay Tafoya, normal GERD causes cough was on pantoprazole Dr Escobedo at [facility], on omeprazole 20 mg bid, helping reflux but cough remains Assessment & Plan (05/24/2025 4:03 PM CDT): EGD 05/25/2023 Dr Chinmay Tafoya, normal GERD cause of cough on ppi therapy Cont on rx ppi therapy Assessment & Plan (11/02/2024 3:22 PM CDT): EGD 05/25/2023 Dr Chinmay Tafoya, normal GERD cause of cough on ppi therapy Cont on rx ppi therapy Assessment & Plan (05/03/2024 8:08 AM CDT): EGD 05/25/2023 Dr Chinmay Tafoya, normal GERD causes cough on pantoprazole Cont on rx pantoprazole from pulmo Dr Santiago 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 09/03/2022 Overview (09/03/2022): Low dose sertraline at HS Assessment & Plan (05/24/2025 4:04 PM CDT): Doing well on low dose Rx sertraline and wants to continue Stable on rx zoloft Cont same dose Assessment & Plan (11/02/2024 3:21 PM CDT): Doing well on low dose Rx sertraline and wants to continue Stable on rx zoloft Cont same dose Assessment & Plan (05/03/2024 8:09 AM CDT): Doing well on low dose Rx sertraline and wants to continue Stable on rx zoloft Assessment & Plan (09/28/2023 3:05 PM POWER PLANT MECHANIC): Doing well on low dose Rx sertraline and wants to continue stable Assessment & Plan (03/22/2023 7:29 PM CDT): Doing well on Rx sertraline and wants to continue Might benefit from change to cymbalta if weight gain continues or if it may help with her stress incont Assessment & Plan (09/03/2022 8:27 AM POWER PLANT MECHANIC): Doing well on sertraline and wants to continue Might benefit from change to cymbalta if weight gain continues or if it may help with her stress incont Frequent UTI 09/03/2022 Assessment & Plan (09/03/2022 8:34 AM POWER PLANT MECHANIC): Finish current abx Hydrate Hold oxybutinin while on antibiotic Refer to Dr Nabeel Harp Low sodium levels 03/04/2021 Assessment & Plan (05/24/2025 4:13 PM CDT): Off HCTZ Do not over hydrate with water stable Assessment & Plan (03/04/2021 9:06 AM CDT): Sodium as 133, recovered to 138 Chloride 102 from 96, better resolved BMI 25.0-25.9,adult 08/23/2019 Assessment & Plan (03/04/2021 8:57 AM CDT): Better down in weight, intentional Assessment & Plan (08/23/2019 4:25 PM POWER PLANT MECHANIC): Work on wt loss Exercise regularly Annual physical exam 08/23/2019 Assessment & Plan (05/24/2025 4:02 PM CDT): Dexa scan due Flu vaccine due [...] and establishing or updating healthcare power of livestock trader document and providing our office with a copy. Assessment & Plan (05/03/2024 8:05 AM CDT): [...] and establishing or updating healthcare power of livestock trader document and providing our office with a [...] maintenance. Assessment & Plan (08/28/2020 3:59 PM POWER PLANT MECHANIC): Wear sunscreen with SPF over 50 while [...] office. Assessment & Plan (08/23/2019 4:23 PM POWER PLANT MECHANIC): Wear sunscreen while outdoors. Wear seatbelts while [...] allergic rhinitis due to food 06/16/2017 Overview (11/02/2024): [place], [place] Smut, etc (dx by allergy testing, dr Ramirez), maintained on NS and eye gtts Dr Escobedo to perform RhinAer procedure January The RhinAer procedure provides a surgery-free alternative to help alleviate the wearisome symptoms of chronic rhinitis in patients who wish to avoid surgery and the long recovery period. Assessment & Plan (11/02/2024 3:15 PM CDT): Dr Escobedo to perform RhinAer procedure January The RhinAer procedure provides a surgery-free alternative to help alleviate the wearisome symptoms of chronic rhinitis in patients who wish to avoid surgery and the long recovery period. OAB (overactive bladder) 12/16/2016 Overview (02/20/2019): On oxybutinin Assessment & Plan (05/24/2025 4:04 PM CDT): Not an issue at this time Cont to take the rx oxybutinin med, is helping stable Assessment & Plan (11/02/2024 3:22 PM CDT): Not an issue at this time Cont to take the rx oxybutinin med, is helping stable Assessment & Plan (05/03/2024 8:09 AM CDT): Not an issue at this time Cont to take the rx oxybutinin med, is helping stable Assessment & Plan (09/28/2023 3:05 PM POWER PLANT MECHANIC): Not an issue Cont to take the oxybutinin med, is helping stable Assessment & Plan (03/22/2023 7:29 PM CDT): Weak pelvic floor Cont prescribed oxybutinin Not been to a urologist Prone to UTIs Has been referred at the last visit to the urologist for recurrent UTIs Assessment & Plan (09/03/2022 8:24 AM POWER PLANT MECHANIC): Weak pelvic floor Cont oxybutinin Not been to a urologist Prone to UTIs Refer to uro Assessment & Plan (02/22/2022 4:53 PM CDT): Cont on oxybutinin therapy Pelvic floor exercises Assessment & Plan (03/04/2021 8:59 AM CDT): Cont on oxybutinin therapy Strong odor lately do a urine dip to rule out infection Assessment & Plan (08/28/2020 3:54 PM POWER PLANT MECHANIC): Cont on oxybutinin Wait on urine culture results from á[facility]el Assessment & Plan (02/20/2019 4:35 PM CDT): Continue same regimen Dyslipidemia 06/17/2016 Assessment & Plan (05/24/2025 4:02 PM CDT): CHOL panel reviewed, about the same as last time Cont diet low chol diet and lifestyle changes Drink alternative milks, oat and nut milk Assessment & Plan (11/02/2024 3:21 PM CDT): CHOL panel reviewed, about the same as last time Cont diet low chol diet and lifestyle changes Try the oat or nut milks Assessment & Plan (05/03/2024 8:16 AM CDT): HDL is better, LDL is lower Cont diet low chol diet and lifestyle changes Switch to nut milk Assessment & Plan (09/28/2023 3:04 PM POWER PLANT MECHANIC): worsening on rx statin therapy continue prescription [...] trigs Assessment & Plan (09/03/2022 8:39 AM POWER PLANT MECHANIC): Better AST now normal Cont statin med [...] regimen. Assessment & Plan (08/28/2020 3:51 PM POWER PLANT MECHANIC): Pravastatin not getting chol to goal, change [...] regimen. Essential hypertension 12/11/2015 Assessment & Plan (05/24/2025 4:03 PM CDT): Stable Cont under host/hostess head Dr Lugo Stable BP on current regimen Sodium remains sl below normal but normal chloride Cont the rx amlodipine 2.5, metoprolol and the irbesratan Assessment & Plan (11/02/2024 3:21 PM CDT): Cont under host/hostess head Stable BP on current regimen Sodium no longer low off hctz Cont the rx amlodipine 2.5, metoprolol and the irbesratan Assessment & Plan (05/03/2024 8:07 AM CDT): Cont under host/hostess head Stable BP on current regimen Sodium no longer low off hctz Cont the rx amlodipine 2.5, metoprolol and the irbesratan Assessment & Plan (09/28/2023 3:04 PM POWER PLANT MECHANIC): Stable continue prescription med Stop the hctz [...] irbesratan Assessment & Plan (09/03/2022 8:39 AM POWER PLANT MECHANIC): Follow low sodium DASH Diet. Exercise regularly [...] metoprolol. Assessment & Plan (08/28/2020 4:00 PM POWER PLANT MECHANIC): bp controlled Cont the same Ff low [...] Problem Noted Date Diagnosed Date Resolved Date Hypertension, uncontrolled 04/22/2023 0 11/02/2024 Acute superficial gastritis without hemorrhage 04/22/2023 11/02/2024 Gastroenteritis and colitis, viral 04/22/2023 11/02/2024 SOB (shortness of breath) on exertion 09/07/2022 11/02/2024 Acute cystitis without hematuria 02/22/2022 03/22/2023 Overview [...] Finish up antibiotic regimen completely as prescribed Transaminitis 03/04/2021 11/02/2024 Assessment & Plan (03/23/2023 11:05 AM CDT): [...] almost normalized Repeat cmp in 2 mos Abnormal urine odor 03/04/2021 02/23/20 Assessment & Plan (03/04/2021 12:49 PM CDT): Likely from supplements Urine dip today al abnormal, send for culture Loud snoring 09/13/2020 02/22/2022 Assessment & Plan (11/03/2020 9:44 AM CDT): Patient will need referred to sleep lab. Assessment & Plan (09/13/2020 12:16 PM POWER PLANT MECHANIC): Patient is complaining of snoring at night and daytime sleepiness. She will need sleep study. 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 Assessment & Plan (09/13/2020 12:15 PM POWER PLANT MECHANIC): Cough is likely due to rhinosinusitis. I will obtain inflammatory markers and IgE level. Start her on Nasonex and schedule her on Zyrtec. If IgE level is elevated start her on montelukast. Will also obtain PFTs with methacholine challenge test. Palpitations 12/13/2019 02/22/2022 Assessment & Plan (12/13/2019 1:52 PM CDT): TSH, BMP, Magnesium level soon non fasting at [facility] 24 hr holter monitor As soon as removes monitor in 24 hrs, start beta abhijeet med at hs for palpitations Continue Avapro therapy taking morning instead Limit stimulants keep caffeine and alcohol on the low Herpes zoster without complication 08/10/2019 02/22/2022 Assessment & Plan (08/10/2019 7:42 AM POWER PLANT MECHANIC): Valtrex every 8 hours x 1 week. [...] Encounters Date Type Department Care Team Description 05/24/2025 3:30 PM CDT Office Visit [facility] [address] [place] [phone] Cuca Brunson MD Annual physical exam (Primary Dx); Essential hypertension; Dyslipidemia; Gastroesophageal reflux disease without esophagitis; Mild episode of recurrent major depressive disorder; OAB (overactive bladder); LATOYA (obstructive sleep apnea); Abnormal glucose; Current use of proton pump inhibitor; Low sodium levels 05/16/2025 Orders Only [facility] Health Information Management [address] [place] [phone] Scanning, Provider 05/15/2025 Telephone [facility] [address] [place] [phone] Cuca Brunson MD Medical Question/Miscellaneo us from Last 3 Months Immunizations Immunization Administration Dates Next Due Influenza, Quad, Adjuvantate d, Intramuscular 06/06/2023 Influenza, Trivalent, High D ose, Split, Preservative Free, Intramuscular 05/17/2025 Influenza, Trivalent, Preser vative Free, Intramuscular 05/23/2024 Influenza, Unspecified 05/03/2024(Deferr ed: Patient Refused),05/28/2022,05/28/2020, 020,05/09/2019 [...] concussion 2006 Hypertension Sleep apnea Jul 2022 Gastroenteritis and colitis, viral 04/22/2023 OAB (overactive bladder) 12/16/2016 On oxyb utinin Mild episode of recurrent ma dread depressive disorder 09/03/2022 Low dose sertraline at HS Dyslipidemia 06/17/2016 Essential hypertension 12/11/2015 Acute superficial gastritis without hemorrhage 04/22/2023 Family History Medical History Relation Name Comments Hyperlipidemia Father Vikas Hyperlipidemi a; Hypertension Father Vikas Hypertension; Parkinsonism Father Vikas Parkinson's dis ease; Skin cancer Father Vikas Cancer, skin; Stroke Father Vikas Hyperlipidemia Mother Chary Hyperlipidemi a; Hypertension Mother Chary Hypertension; Relation Name Status Comments Father Vikas Mother Chary Alive Social History Tobacco Use Types Packs/Day Years Used Date Smoking Tobacco: Former Cigarettes 0.3 3.3 Smokeless Tobacco: Never Tobacco Cessation:Counseling Given: Not Answered Comments:I quit before I got 43 years. Alcohol Use Standard Drinks/Week Comments Yes 0 (1 standard drink = 0.6 oz pur e alcohol) PHQ-2 Answer Date Recorded PHQ-2 Total Score (If total score is 3 or more points, staff should administer the PHQ-9) 0 05/24/2025 PHQ-9 Answer Date Recorded PHQ-9 Total Score 1 11/02/2024 AUDIT-C Answer Date Recorded Q1: How often do you have a drink containing alc ohol? Monthly or less 05/24/2025 Q2: How many drinks containi ng alcohol do you have on a typical day when you are drinking? 1 or 2 05/24/2025 Q3: How often do you have si x or more drinks on one occasion? Never 05/24/2025 Comments No Sex and Gender Information Value Date Recorded Sex Assigned at Not on file Legal Sex Female 4:00 AM POWER PLANT MECHANIC Gender Identity Female 06/02/2020 7:58 PM CDT Sexual Orientation Straight 06/02/2020 7: 58 PM CDT Last Filed Vital Signs Vital Sign Reading Time Taken Comments Blood Pressure 130/62 05/24/2025 4:00 PM CDT Pulse 77 05/24/2025 3:31 PM CDT Temperature 36.7 C (98.1 F) 05/24/2025 3:31 PM CDT Respiratory Rate 18 05/24/2025 3:31 PM CDT Oxygen Saturation 97% 05/24/2025 3:31 PM CDT Inhaled Oxygen Concentration - - Weight 68 kg (150 lb) 05/24/2025 3:31 PM CDT Height 160 cm (5' 3) 05/24/2025 3:31 PM CDT Body Mass Index 26.57 05/24/2025 3:31 PM CDT Plan of Treatment Health Maintenance Due Date Last Done Comments Hepatitis B Screening 1978 Covid-19 Vaccine (2024-09 6 season) 2025 08/15/2021, 10/08/2020, 09/10/2020 Breast Cancer Screening-Mammogram 07/13/2025 07/13/2024, 06/28/2023, 06/22/2022, Additional history exists Depression Screening 05/24/2026 05/24/2025, 03/02/2025, 11/02/2024, Additional history exists Fall Risk Assessment 05/24/2026 05/24/2025, 05/03/2024, 03/23/2023, Additional history exists Well Visit 65+ 05/24/2026 05/24/2025, 04/10, 03/23/2023, Additional history exists Osteoporosis Screening-Bone Density Scan 04/03/2027 04/03/2025 Colon Cancer Screening-Colonoscopy 05/25/2028 05/25/2023, 02/28/2019 DTaP/Tdap/Td Vaccine (2 - Td or Tdap) 02/20/2029 02/20/2019 Zoster Vaccine Completed 03/07/2020, 08/23/2019 Hepatitis C Screening Completed 08/28/2020 Pneumococcal vaccine 65+ Completed 03/23/2023 Colon Cancer Screening-CT Colonography Discontinued 05/25/2023, 02/28/2019 Colon Cancer Screening-DNA Stool Discontinued 05/25/20, 02/28/2019 Colon Cancer Screening-FIT Discontinued 05/25/2023, Colon Cancer Screening-Sigmoidoscopy Discontinued 05/25/2023, 02/28/2019 Influenza Vaccine Completed 05/17/2025, , 06/06/2023, Additional history exists Procedures Procedure Name Priority Date/Time Associated Diagnosis Comments SCAN - LABS 05/16/2025 HM DEXA SCAN Routine 04/03/2025 1:42 PM CDT SCREENING MAMMOGRAM BILATERAL W HOMERO Schedule Routine, Read Routine (OP Routine) 07/13/2024 11:00 AM POWER PLANT MECHANIC At high risk for breast cancer HM COLONOSCOPY Routine 05/25/2023 HEPATITIS C ANTIBODY Routine 08/28/2020 2:59 PM POWER PLANT MECHANIC from Last 3 Months or Most Recently Relevant to Health Maintenance Results * SCAN - LABS (05/16/2025) Provider Scanning Edited Result - Final * HM DEXA SCAN (04/03/2025 1:42 PM CDT) Scribed HM Deca Scan Normal Historical Provider MD HEALTH MAINTENANCE Final Result * Screening Mammogram Bilateral W Homero (07/13/2024 11:00 AM POWER PLANT MECHANIC) Anatomical Region Laterality Modality Breast Bilateral Mammography Narrative 07/14/2024 4:34 PM POWER PLANT MECHANIC Mammogram Technique: Bilateral Digital Breast Tomosynthesis, Bilateral C-view 2D Screening mammogram. Views obtained: bilateral craniocaudal and bilateral mediolateral oblique. Computer Aided Detection was performed. Mammogram Findings: The present examination has been compared to prior imaging studies performed at [facility] on 06/16/2021, 06/22/2022 and [...] compared to prior imaging studies performed at [facility] on 06/16/2021, 06/22/2022 and [...] * Hepatitis C antibody (08/28/2020 2:59 PM POWER PLANT MECHANIC) SCRIBED HCV ab neg EXTERNAL LAB Blood specimen (specimen) Historical Provider LAB MICROBIOLOGY - GENERA L ORDERABLES Final Result EXTERNAL LAB from Last 3 Months or Most Recently Relevant to Health Maintenance Insurance [facility] Care Teams Literacy Teacher Relationship Specialty Start Date End Date Cuca Brunson MD [address] [place] [phone] PCP - General 04/07/17 Long Stern MD [address] [place] [address] Referring Physician Gastroenterology 10/23/23 Robert Escobedo MD [address] [place] [address] Otolaryngology 11/02/24 Radha Leonard PA [address] [id number] Pulmonary Disease 11/02/24 Damian Bravo, SONNY [address] [facility] [place] [address] Consulting Physician Podiatry 05/24/25
[2025-07-07 22:48] LABS: Influenza A QL RT-PCR Negative (Negative); Influenza B QL RT-PCR Negative (Negative); RSV RNA, RT-PCR Negative (Negative); SARS-CoV-2 RNA PCR Negative (Negative)
[2025-07-07 23:09] VITALS: BP 166/86; PULSE 97; RESP 18; O2SAT 97
[2025-07-07] MEDS: AZITHROMYCIN 250 MG TABLET 500 MG PO (23:58)
[2025-07-08 00:02] VITALS: BP 159/80; PULSE 93; RESP 18; O2SAT 94
== END 2025-07-08 00:09 | disposition home or self-care (01) ==
PROVIDERS: Emergency Medicine; Emergency Provider Registered Nurse; PCP Internal Medicine
DX: J18.9 Pneumonia, unspecified organism (principal); E86.0 Dehydration; R07.89 Other chest pain; Z20.822 Contact with and (suspected) exposure to COVID-19; I11.9 Hypertensive heart disease without heart failure; E78.5 Hyperlipidemia, unspecified; N32.81 Overactive bladder; F32.A Depression, unspecified; Z90.710 Acquired absence of both cervix and uterus; Z79.899 Other long term (current) drug therapy; R94.31 Abnormal electrocardiogram [ECG] [EKG]
CPT/HCPCS: 36415; 71046; 80053; 83690; 83880; 84443; 84484; 85025; 85380; 85610; 85730; 87637; 93005; 94640; 96360; 99284; A9270; J7030

== ENCOUNTER 2025-07-30 03:34 | Day surgery (SDC) | payer OTHER, SELFPAY ==
[2025-07-27 11:46] VITALS: BMI 27.5
[2025-07-30] VITALS (12 sets, daily range): BP systolic 94–150; BP diastolic 46–77; PULSE 68–90; RESP 13–18; TEMP 37.1; O2SAT 93–99; BMI 25.7
--- OUTSIDE RECORDS SUMMARY | 2025-07-30 03:37 | XMS_ITS | Encounter Summary ---
Author Organization [facility] Care Team Providers Care Town Clerk Name Role Phone Cuca Brunson MD Primary Care Provider + [phone] Long Stern MD Unavailable + Robert Escobedo MD Unavailable [phone] Radha Leonard Unavailable + [phone] Damian Bravo DPM Unavailable [phone] Encounter Details Date Type Department Care Team (Latest Contact Info) Description 06/14/2017 Orders Only [facility] CLINCONV ProviderCelso MD [address] [place] [id number] Social History Tobacco Use Types Packs/Day Years Used Date Smoking Tobacco: Never Alcohol Use Standard Drinks/Week Comments Yes 0 (1 standard drink = 0.6 oz pur e alcohol) Comments Unknown Sex and Gender Information Value Date Recorded Sex Assigned at Not on file Legal Sex Female 4:00 AM CIVIL DESIGN TECHNICIAN Gender Identity Female 06/02/2020 7:58 PM CDT Sexual Orientation Straight 06/02/2020 7: 58 PM CDT documented as of this encounter Plan of Treatment Not on file documented as of this encounter Procedures Procedure Name Priority Date/Time Associated Diagnosis Comments SCAN - LABS 06/18/2017 12:00 AM CIVIL DESIGN TECHNICIAN SCAN - LABS 06/16/2017 12:00 AM CIVIL DESIGN TECHNICIAN documented in this encounter Results * SCAN - LABS (06/18/2017 12:00 AM CIVIL DESIGN TECHNICIAN) Narrative 06/18/2017 12:00 AM CIVIL DESIGN TECHNICIAN Ordered by an unspecified provider. Historical Provider Final Res ult * SCAN - LABS (06/16/2017 12:00 AM CIVIL DESIGN TECHNICIAN) Narrative 06/16/2017 12:00 AM CIVIL DESIGN TECHNICIAN Ordered by an unspecified provider. Historical Provider Final Res ult documented in this encounter Visit Diagnoses Not on filedocumented in this encounter Care Teams Town Clerk Relationship Specialty Start Date End Date Cuca Brunson MD [address] [place] [id number] PCP - General 04/07/17 Long Stern MD [address] [facility] [address] [facility] [address] [place] [address] Referring Physician Gastroenterology 05/31/23 Robert Escobedo MD [address] [place] [address] Otolaryngology 11/02/24 Radha Leonard PA [address] [facility] [address] [place] [address] Pulmonary Disease 11/02/24 Damian Bravo, SONNY [address] [facility] [place] [address] Consulting Physician Podiatry 05/24/25 documented as of this encounter
--- OUTSIDE RECORDS SUMMARY | 2025-07-30 03:37 | XMS_ITS | Encounter Summary ---
Author Organization [facility] Care Team Providers Care Saddle Maker Name Role Phone Cuca Brunson MD Primary Care Provider + [phone] Long Stern MD Unavailable + Robert Escobedo MD Unavailable [phone] Radha Leonard Unavailable + [phone] Damian Bravo DPM Unavailable [phone] Encounter Details Date Type Department Care Team (Latest Contact Info) Description 04/06/2018 Orders Only [facility] CLINCONV ProviderCelso MD [address] [place] [id number] Social History Tobacco Use Types Packs/Day Years Used Date Smoking Tobacco: Never Smokeless Tobacco: Never Alcohol Use Standard Drinks/Week Comments Yes 0 (1 standard drink = 0.6 oz pur e alcohol) Comments No Sex and Gender Information Value Date Recorded Sex Assigned at Not on file Legal Sex Female 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 Gender Identity Female 06/02/2020 7:58 PM [...] on filedocumented in this encounter Care Teams Saddle Maker Relationship Specialty Start Date End Date Cuca Brunson MD [address] [id number] PCP - General 04/07/17 Long Stern MD [address] [place] [address] Referring Physician Gastroenterology 05/31/23 Robert Escobedo MD [facility] [place] [address] Otolaryngology 11/02/24 Radha Leonard PA [address] [address] Pulmonary Disease 11/02/24 Damian Bravo DPM [address] [place] [address] Consulting Physician Podiatry 05/24/25 documented as of this encounter
--- OUTSIDE RECORDS SUMMARY | 2025-07-30 03:37 | XMS_ITS | Clinical Summary ---
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 Role Phone Cuca Brunson MD Primary Care Provider + [phone] Long Stern MD Unavailable + Robert Escobedo MD Unavailable [phone] Radha Leonard Unavailable + [phone] Damian Bravo DPM Unavailable [phone] Allergies Active Allergy Reactions Criticality Noted Date Comments Clarithromycin Vomiting Low 11/29/2018 vomitting Levofloxacin Stomach upset Low 04/06/2018 Lisinopril Cough Low 11/29/2018 cough Medications cholecalciferol (VITAMIN D3) 2,000 unit tablet take 1 by Oral route 2 times every day 0 0 10/10/19 16 Active guaiFENesin ER (MUCINEX) 600 mg 12 hr tablet Take 2 tablets (1,200 mg total) by mouth 2 (two) times a day Active sertraline (ZOLOFT) 50 mg tablet TAKE 1 TABLET BY MOUTH DAILY 90 tablet 3 03/28/20 24 Active omeprazole (PriLOSEC) 20 mg capsule Take 1 capsule (20 mg total) by mouth daily 90 capsule 3 09/29/19 25 026 Active montelukast (SINGULAIR) 10 mg tablet Take 1 tablet (10 mg total) by mouth nightly 90 tablet 3 09/29/19 25 Active ipratropium (ATROVENT) 21 mcg (0.03 %) nasal spray Administer 2 sprays into each nostril 2 (two) times a day 10/27/19 25 Active rosuvastatin (CRESTOR) 10 mg tablet Take 1 tablet (10 mg total) by mouth daily 90 tablet 3 11/17/19 25 Active omeprazole (PriLOSEC) 40 mg capsule TAKE 1 CAPSULE BY MOUTH DAILY 0.5 TO 1 HOUR BEFORE BREAKFAST 02/07/20 25 Active irbesartan (AVAPRO) 300 mg tablet TAKE 1 TABLET BY MOUTH DAILY 90 tablet 1 04/24/20 25 Active metoprolol XL (TOPROL-XL) 50 mg extended release tabletIndicatio ns:Essential hypertension TAKE 1 TABLET(50 MG) BY MOUTH EVERY NIGHT 100 tablet 1 05/02/20 25 Active amLODIPine (NORVASC) 2.5 mg tablet Take 1 tablet (2.5 mg total) by mouth 2 (two) times a day Active loratadine (Claritin) 10 mg tablet Take 1 tablet (10 mg total) by mouth daily Active albuterol HFA (PROVENTIL HFA,VENTOLIN HFA,PROAIR HFA) 90 mcg/actuation inhaler INHALE 2 PUFFS BY MOUTH FOUR TIMES DAILY NEEDED FOR SHORTNESS OF BREATH OR WHEEZING 07/08/20 25 Active oxyBUTYnin XL (DITROPAN XL) 15 mg 24 hr tabletIndicatio ns:OAB (overactive bladder) TAKE 1 TABLET(15 MG) BY MOUTH DAILY 90 tablet 3 07/20/20 25 Active cetirizine (ZyrTEC) 10 mg tablet Take 1 tablet (10 mg total) by mouth daily 025 Discontinued(P atient Reported) budesonide (RHINOCORT AQUA) 32 mcg/actuation nasal spray SHAKE LIQUID AND USE 1 SPRAY IN EACH NOSTRIL DAILY 8.43 mL 1 06/19/20 24 025 Discontinued(N o longer taking - Do not display on AVS) oxyBUTYnin XL (DITROPAN XL) 15 mg 24 hr tabletIndicatio ns:OAB (overactive bladder) Take 1 tablet (15 mg total) by mouth daily 90 tablet 3 02/21/ 025 Discontinued Xhance 93 mcg/actuation aerosol breath activated 2 SPRAYS IN EACH NOSTRIL NASALLY TWICE A DAY 30 DAYS 09/28/19 025 Discontinued(N o longer taking - Do not display on AVS) amLODIPine (NORVASC) 2.5 mg tablet TAKE 1 TABLET(2.5 MG) BY MOUTH DAILY 90 tablet 1 06/01/20 025 Discontinued(P atient Reported) Active Problems Problem Noted Date Diagnosed Date [...] compliant Radha Leonard, ISAC managing Marilu Garcia [facility] Escobedo Assessment [...] loss. Assessment & Plan (09/28/2023 3:13 PM FLAME DEGREASER): Ff no sugar diet Cont to walk on the treadmill Monitor a1c Gastroesophageal reflux disease 05/31/2023 Overview (11/02/2024): History of superficial gastritis EGD 05/25/2023 Dr Chinmay Tafoya, normal GERD causes cough was on pantoprazole Dr Escobedo at [facility], on omeprazole 20 mg bid, helping reflux [...] zoloft Assessment & Plan (09/28/2023 3:05 PM FLAME DEGREASER): Doing well on low dose Rx sertraline and wants to continue stable Assessment & Plan (03/22/2023 7:29 PM CDT): Doing well on Rx sertraline and wants to continue Might benefit from change to cymbalta if weight gain continues or if it may help with her stress incont Assessment & Plan (09/03/2022 8:27 AM FLAME DEGREASER): Doing well on sertraline and wants to continue Might benefit from change to cymbalta if weight gain continues or if it may help with her stress incont Frequent UTI 09/03/2022 Assessment & Plan (09/03/2022 8:34 AM FLAME DEGREASER): Finish current abx Hydrate Hold oxybutinin while [...] intentional Assessment & Plan (08/23/2019 4:25 PM FLAME DEGREASER): Work on wt loss Exercise regularly Annual [...] and establishing or updating healthcare power of mop worker document and providing our office with a [...] and establishing or updating healthcare power of mop worker document and providing our office with a [...] maintenance. Assessment & Plan (08/28/2020 3:59 PM FLAME DEGREASER): Wear sunscreen with SPF over 50 while [...] office. Assessment & Plan (08/23/2019 4:23 PM FLAME DEGREASER): Wear sunscreen while outdoors. 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 06/16/2017 Overview (11/02/2024): [place], [place], etc (dx by allergy testing, dr [...] stable Assessment & Plan (09/28/2023 3:05 PM FLAME DEGREASER): Not an issue Cont to take the oxybutinin med, is helping stable Assessment & Plan (03/22/2023 7:29 PM CDT): Weak pelvic floor Cont prescribed oxybutinin Not been to a urologist Prone to UTIs Has been referred at the last visit to the urologist for recurrent UTIs Assessment & Plan (09/03/2022 8:24 AM FLAME DEGREASER): Weak pelvic floor Cont oxybutinin Not been to a urologist Prone to UTIs Refer to uro Assessment & Plan (02/22/2022 4:53 PM CDT): Cont on oxybutinin therapy Pelvic floor exercises Assessment & Plan (03/04/2021 8:59 AM CDT): Cont on oxybutinin therapy Strong odor lately do a urine dip to rule out infection Assessment & Plan (08/28/2020 3:54 PM FLAME DEGREASER): Cont on oxybutinin Wait on urine culture [...] milk Assessment & Plan (09/28/2023 3:04 PM FLAME DEGREASER): worsening on rx statin therapy continue prescription [...] trigs Assessment & Plan (09/03/2022 8:39 AM FLAME DEGREASER): Better AST now normal Cont statin med [...] regimen. Assessment & Plan (08/28/2020 3:51 PM FLAME DEGREASER): Pravastatin not getting chol to goal, change [...] (05/24/2025 4:03 PM CDT): Stable Cont under manager integrity Dr Lugo Stable BP on current regimen Sodium remains sl below normal but normal chloride Cont the rx amlodipine 2.5, metoprolol and the irbesratan Assessment & Plan (11/02/2024 3:21 PM CDT): Cont under manager integrity Stable BP on current regimen Sodium no longer low off hctz Cont the rx amlodipine 2.5, metoprolol and the irbesratan Assessment & Plan (05/03/2024 8:07 AM CDT): Cont under manager integrity Stable BP on current regimen Sodium no longer low off hctz Cont the rx amlodipine 2.5, metoprolol and the irbesratan Assessment & Plan (09/28/2023 3:04 PM FLAME DEGREASER): Stable continue prescription med Stop the hctz [...] irbesratan Assessment & Plan (09/03/2022 8:39 AM FLAME DEGREASER): Follow low sodium DASH Diet. Exercise regularly [...] metoprolol. Assessment & Plan (08/28/2020 4:00 PM FLAME DEGREASER): bp controlled Cont the same Ff low [...] lab. Assessment & Plan (09/13/2020 12:16 PM FLAME DEGREASER): Patient is complaining of snoring at night and daytime sleepiness. She will need sleep study. 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 Assessment & Plan (09/13/2020 12:15 PM FLAME DEGREASER): Cough is likely due to rhinosinusitis. I will obtain inflammatory markers and IgE level. Start her on Nasonex and schedule her on Zyrtec. If IgE level is elevated start her on montelukast. Will also obtain PFTs with methacholine challenge test. Palpitations 12/13/2019 02/22/2022 Assessment & Plan (12/13/2019 1:52 PM CDT): TSH, BMP, Magnesium level soon non fasting at [facility] 24 hr holter monitor As soon as removes monitor in 24 hrs, start beta abhijeet med at hs for palpitations Continue Avapro therapy taking morning instead Limit stimulants keep caffeine and alcohol on the low Herpes zoster without complication 08/10/2019 02/22/2022 Assessment & Plan (08/10/2019 7:42 AM FLAME DEGREASER): Valtrex every 8 hours x 1 week. [...] Encounters Date Type Department Care Team Description 07/23/[address] [facility] Medical Group Cardiology [address] [place] [address] Yamileth Putnam NP Hypertension 07/20/2025 1:14 PM FLAME DEGREASER - 07/20/2025 11:59 PM FLAME DEGREASER Hospital Encounter [facility] [place] - Breast Imaging [address] [place] [address] 8 [place], [place] [id number] At high risk for breast cancer Discharge Disposition: Discharge to home or self care 07/20/2025 1:00 PM FLAME DEGREASER Office Visit [facility] [address] [place] [address] Mary Mercer PA Heterogeneously dense tissue of both breasts on mammography (Primary Dx); Inverted nipple; Screening mammogram, encounter for 07/20/2025 Results Follow-Up [facility] Cardiology [address] [place] [address] [place] [phone] Yamileth Putnam NP [place] MPI SPECT (Rest and/or Stress) Multiple Studies 07/19/2025 8:15 AM FLAME DEGREASER Ancillary Procedure [facility] Cardiology [address] [place] [address] [place] [phone] Chest pain, unspecified type; Hypertensive urgency 07/10/2025 10:00 AM FLAME DEGREASER Office Visit [place] [address] [place] [phone] Yamileth Putnam NP Chest pain, unspecified type (Primary Dx); Hypertensive urgency; History of recent pneumonia; Dyslipidemia 07/09/2025 Orders Only [facility] Cardiology [address] [place] [address] [place] [phone] ProviderCelso MD 07/09/2025 Telephone [place] [address] [place] [phone] Danielle Rosado MA [facility] 07/07/2025 Orders Only [facility] Information Management [address] [place] [address] Scanning, Provider 05/24/2025 3:30 PM CDT Office Visit [facility] Primary Care [address] [place] [phone] Cuca Brunson MD Annual physical exam (Primary Dx); Essential hypertension; Dyslipidemia; Gastroesophageal reflux disease without esophagitis; Mild episode of recurrent major depressive disorder; OAB (overactive bladder); LATOYA (obstructive sleep apnea); Abnormal glucose; Current use of proton pump inhibitor; Low sodium levels 05/16/2025 Orders Only [facility] Health Information Management [address] [place] [address] Scanning, Provider 05/15/2025 Telephone [facility] [address] [place] [address] [place] [phone] Cuca Brunson MD Medical Question/Miscellaneous from Last 3 Months Immunizations Immunization Administration [...] on file Legal Sex Female 4:00 AM FLAME DEGREASER Gender Identity Female 06/02/2020 7:58 PM CDT Sexual Orientation Straight 06/02/2020 7: 58 PM CDT Obstetrics History Para Term AB IAB SAB Ectopic Multiple Livin g Live Births 2 2 Date Outcome GA Total Labor Labor/2nd/3rd Weight Sex Type Anes PTL Lisandra A1 A5 Name Clin Last Filed Vital Signs Vital Sign Reading Time Taken Comments Blood Pressure 168/70 07/10/2025 9:50 AM FLAME DEGREASER Pulse 74 07/10/2025 9:50 AM FLAME DEGREASER Temperature 36.7 C (98.1 F) 05/24/2025 3:31 PM CDT Respiratory Rate 18 05/24/2025 3:31 PM CDT Oxygen Saturation 96% 07/10/2025 9:50 AM FLAME DEGREASER Inhaled Oxygen Concentration - - Weight 70.7 kg (155 lb 12.8 oz) 025 12:59 PM FLAME DEGREASER Height 160 cm (5' 2.99) 07/20/2025 12: 59 PM FLAME DEGREASER Body Mass Index 27.61 07/20/2025 12:59 PM FLAME DEGREASER Plan of Treatment Health Maintenance Due Date Last Done Comments Hepatitis B Screening 1978 Covid-19 Vaccine (2024-09 6 season) 2025 08/15/2021, 10/08/2020, 09/10/2020 Depression Screening 05/24/2026 05/24/2025, 03/02/2025, 11/02/2024, Additional history exists Fall Risk Assessment 05/24/2026 05/24/2025, 05/03/2024, 03/23/2023, Additional history exists Well Visit 65+ 05/24/2026 05/24/2025, 09/12/2023, 03/23/2023, Additional history exists Breast Cancer Screening-Mammogram 07/20/2026 07/20/2025, 07/13/2024, 06/28/2023, Additional history exists Osteoporosis Screening-Bone Density Scan [...] Procedure Name Priority Date/Time Associated Diagnosis Comments CONTRAST ENHANCED DIGITAL MAMMOGRAPHY BILATERAL Schedule Routine, Read Routine (OP Routine) 07/20/2025 2:51 PM FLAME DEGREASER At high risk for breast cancer NM MPI SPECT (REST AND/OR STRESS) MULTIPLE STUDIES Schedule Routine, Read Routine (OP Routine) 07/19/2025 10:16 AM FLAME DEGREASER Chest pain, unspecified type Hypertensive urgency SCAN - RADIOLOGY/IMAGING 07/07/2025 LIPID PANEL Routine 05/16/2025 2:49 PM CDT SCAN - LABS 05/16/2025 DEXA SCAN Routine 04/03/2025 1:42 PM CDT COLONOSCOPY Routine 05/25/2023 HEPATITIS C ANTIBODY Routine 08/28/2020 2:59 PM FLAME DEGREASER from Last 3 Months or Most Recently Relevant to Health Maintenance Results * Contrast Enhanced Digital Mammography Bilateral (07/20/2025 2:51 PM FLAME DEGREASER) Anatomical Region Laterality Modality Breast Bilateral Mammography 07/20/2025 3:54 PM FLAME DEGREASER Impressions 07/20/2025 3:54 PM FLAME DEGREASER No evidence of malignancy in either breast. OVERALL FINAL ASSESSMENT: BI-RADS Category 1: Negative. RECOMMENDATION: Annual screening mammography is recommended. The above findings and recommendations were communicated to the patient verbally. Electronically signed by: Macarena Cam MD Narrative 07/20/2025 3:54 PM FLAME DEGREASER EXAMINATION: BILATERAL CONTRAST ENHANCED DIGITAL DIAGNOSTIC MAMMOGRAM WITH DIGITAL BREAST TOMOSYNTHESIS HISTORY: 65-year-old woman with heterogeneously dense breast tissue presents for screening contrast-enhanced mammography. The patient is known to have chronic stable bilateral nipple inversion. No family history of breast or ovarian cancer. COMPARISON: Multiple priors back to 2016, with the most recent one dated 07/13/2024. TECHNIQUE: Full field digital mammographic views with digital breast tomosynthesis of BOTH breasts were performed including low energy and subtracted views following the uneventful administration of nonionic iodinated intravenous contrast material. CONTRAST: Optiray, 106 ml BREAST PARENCHYMAL COMPOSITION: There are scattered areas of fibroglandular density. BACKGROUND PARENCHYMAL ENHANCEMENT: Mild, symmetric FINDINGS: Low energy images: There are no suspicious masses, calcifications, or areas of architectural distortion. Chronic bilateral nipple inversion is again noted. Subtraction images: There is no suspicious mass or non-mass enhancement. Yvette Nails NP IMG MAMMO PROCEDURES Final Result * NM MPI SPECT (Rest and/or Stress) Multiple Studies (07/19/2025 10:16 AM FLAME DEGREASER) Anatomical Region Laterality Modality Body N/A Nuclear Medicine 07/19/2025 8:18 AM FLAME DEGREASER Narrative 07/19/2025 5:[address] [facility] Medical Group Cardiology [address] [facility] [address], [place] [address] [address] [facility] [address], [place] [address], [place] [address] P:[phone] P:[phone] MPI Imaging Report Patient Name: DRE CLIFFORD L : 1960 Study Date: 07/19/2025 8:18:25 AM Sex: F Tech: PRAFUL [facility] Location: [facility] Provider: YAMILETH PUTNAM Height(Cm): 160 BSA: Weight(Kg): 70.6 BMI: 27.58 Order Provider: YAMILETH PUTNAM PHYSICIAN: Primary Care Physician: Dr. Brunson. [facility] Physician: Michael Lugo M.D. Stress Supervision: Dilshad Estrella M.D. Stress Interpreting Physician: Dilshad Estrella M.D. Myocardial Perfusion Imaging Interpreting Physician: Dilshad Estrella M.D. PROCEDURES: Exercise SPECT Report: Myocardial perfusion imaging with Tc99m Sestamibi SPECT at rest and stress post exercise using the Stephon protocol. INDICATIONS: Family Hx CAD, High Cholesterol, Former Smoker, R07.9 Chest pain, unspecified, and I16.0 Hypertensive urgency. FINDINGS: Procedure: One day rest/stress protocol was used. Tc99m Sestamibi injected IV at rest was 10.4 millicuries 32.8 millicuries of Tc99m Sestamibi injected IV at peak stress Patient had no symptoms during stress test. Baseline heart rate was 79 BPM Peak heart rate was 179 BPM Max projected heart rate was 153 Percent predicted max heart rate achieved was 117 % Exercise Time 8:30 min Baseline blood pressure was 122/64 mmHg Peak blood pressure 152/96 mmHg Termination: Fatigue. Dyspnea. Exercise Tolerance: Excellent for patient's age. Resting ECG: Normal sinus rhythm. Cannot r/o septal infarct - age uncertain. PVC. Post ECG: Stress ECG is nearly uninterpretable due to artifact. Possible significant inferior ST segment depression concerning for ischemia. Arrhythmia: Occasional PVCs. Perfusion Findings: Normal perfusion imaging. No definite fixed or reversible defects. Technical quality of study is excellent. Left ventricle cavity size at rest is small. Left ventricle cavity size with stress is unchanged. A TID of 0.73 was automatically calculated. LV Function: There is hyperdynamic global left ventricular systolic function. Left Ventricular Ejection Fraction is 81 %. CONCLUSIONS: Myocardial perfusion imaging is normal. Stress ECG is nearly uninterpretable due to artifact. Possible significant inferior ST segment depression concerning for ischemia. There is hyperdynamic global left ventricular systolic function. Left Ventricular Ejection Fraction is 81 %. No exercise induced chest pain and excellent exercise capacity for age. Electronically Signed By: Osmin Estrella MD 07/19/2025 3:52:06 PM FLAME DEGREASER Electronically Signed By: Osmin Estrella MD 07/19/2025 3:52:06 PM FLAME DEGREASER Procedure Note Osmin Estrella MD - 07/19/2025 [facility] Medical Group Cardiology [address] [facility] [address] [address] [address] [facility] [id number], [place] [address] [address] [place] [address] P:[phone] P:[phone] MPI Imaging Report Patient Name: DRE CLIFFORD L : 1960 Study Date: 07/19/2025 8:18:25 AM Sex: F Tech: PRAFUL [facility] Location: [facility] Provider: YAMILETH PUTNAM Height(Cm): 160 BSA: Weight(Kg): 70.6 BMI: 27.58 Order Provider: YAMILETH PUTNAM PHYSICIAN: Primary Care Physician: Dr. Brunson. [facility] Physician: Michael Lugo M.D. StressSupervision: Dilshad Estrella M.D. Stress Interpreting Physician: Dilshad Estrella M.D.Myocardial Perfusion Imaging Interpreting Physician: Dilshad Estrella M.D. PROCEDURES: Exercise SPECT Report: Myocardial perfusion imaging with Tc99m Sestamibi SPECT at rest and stresspost exercise using the Stephon protocol. INDICATIONS: Family Hx CAD, High Cholesterol, Former Smoker, R07.9 Chest pain,unspecified, and I16.0 Hypertensive urgency. FINDINGS: Procedure: One day rest/stress protocol was used. Tc99m Sestamibi injected IV at rest was 10.4 millicuries 32.8 millicuries of Tc99m Sestamibi injected IV at peak stress Patient had no symptoms during stress test. Baseline heart rate was 79 BPM Peak heart rate was 179 BPM Max projected heart rate was 153 Percent predicted max heart rate achieved was 117 % Exercise Time 8:30 min Baseline blood pressure was 122/64 mmHg Peak blood pressure 152/96 mmHg Termination: Fatigue. Dyspnea. Exercise Tolerance: Excellent for patient's age. Resting ECG: Normal sinus rhythm. Cannot r/o septal infarct - age uncertain. PVC. Post ECG: Stress ECG is nearly uninterpretable due to artifact. Possible significantinferior ST segment depression concerning for ischemia. Arrhythmia: Occasional PVCs. Perfusion Findings: Normal perfusion imaging. No definite fixed or reversible defects.Technical quality of study is excellent. Left ventricle cavity size at rest is small. Leftventricle cavity size with stress is unchanged. A TID of 0.73 was automaticallycalculated. LV Function: There is hyperdynamic global left ventricular systolic function. LeftVentricular Ejection Fraction is 81 %. CONCLUSIONS: Myocardial perfusion imaging is normal. Stress ECG is nearly uninterpretable due to artifact. Possible significantinferior ST segment depression concerning for ischemia. There is hyperdynamic global left ventricular systolic function. LeftVentricular Ejection Fraction is 81 %. No exercise induced chest pain and excellent exercise capacity for age. Electronically Signed By: Osmin Estrella MD 07/19/2025 3:52:06 PM FLAME DEGREASER Electronically Signed By: Osmin Estrella MD 07/19/2025 3:52:06 PM FLAME DEGREASER Result [facility] Yamileth Putnam [employer] IMG NM PROCEDURES Final R esult * SCAN - RADIOLOGY/IMAGING (07/07/2025) Anatomical Region Laterality Modality Other Provider Scanning Final Result * (ABNORMAL) Lipid panel (05/16/2025 2:49 PM CDT) SCRIBED Cholesterol, Total 217(A) 30 - 199 mg/dL EXTERNAL LAB SCRIBED Triglycerides 266(A) <=149 mg/dL EXTERNAL LAB SCRIBED HDL 63 >=40 mg/dL EXTERNAL LAB SCRIBED LDL 106 <=129 mg/dL EXTERNAL LAB Scribed Non-HDL Cholesterol EXTERNAL LAB Comment:. SCRIBED Total Cholesterol/HDL Ratio EXTERNAL LAB Comment:. Blood Result [facility] Historical Provider LAB BLOOD ORDERABLES Edit ed Result - Final EXTERNAL LAB * SCAN - LABS (05/16/2025) Provider Scanning Edited Result - Final * DEXA SCAN (04/03/2025 1:42 PM CDT) Scribed Deca Scan Normal Result [facility] Historical Provider HEALTH MAINTENANCE Final Result * (ABNORMAL) HM COLONOSCOPY (05/25/2023) Scribed Colonoscopy Abnormal Result [facility] Historical Provider HEALTH MAINTENANCE Final Result * Hepatitis C antibody (08/28/2020 2:59 PM FLAME DEGREASER) SCRIBED HCV ab neg EXTERNAL LAB Blood specimen (specimen) us Historical Provider LAB MICROBIOLOGY - GENERA L ORDERABLES Final Result EXTERNAL LAB from Last 3 Months or Most Recently Relevant to Health Maintenance Insurance [facility] Care Teams Office 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
--- OUTSIDE RECORDS SUMMARY | 2025-07-30 03:37 | XMS_ITS | Encounter Summary ---
Author Organization [facility] Facility Care Team Providers Care Silk Blocker Name Role Phone Cuca Brunson MD Primary Care Provider + [phone] Unknown, Notinfile Primary Care Provider Unavail able Cuca Brunson MD Primary Care Provider + [phone] Long Stern MD Unavailable + Robert Escobedo MD Unavailable +[phone] Radha Leonard Unavailable + [phone] Damian Bravo DPM Unavailable +[phone] Encounter Details Date Type Department Care Team (Latest Contact Info) Description 06/16/2016 Orders Only [facility] CLINCONV ProviderCelso MD [address] [place] [address] Social History Tobacco Use Types Packs/Day Years Used Date Smoking Tobacco: Never Alcohol Use Standard Drinks/Week Comments Yes 0 (1 standard drink = 0.6 oz pur e alcohol) Comments Unknown Sex and Gender Information Value Date Recorded Sex Assigned at Not on file Legal Sex Female 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 us Historical Provider Final Res ult * SCAN - LABS (06/17/2016 12:00 AM BLOWING ENGINEER) Narrative 06/17/2016 12:00 AM BLOWING ENGINEER Ordered by an unspecified provider. us Historical Provider Final Res ult documented in this encounter Visit Diagnoses Not on filedocumented in this encounter Care Teams Silk Blocker Relationship Specialty Start Date End Date Cuca Brunson MD [address] [place] [address] PCP - General 03/31/17 03/31/17 Unknown, Notinfile PCP - General 04/01/17 04/06/17 Cuca Brunson MD [address] [place] [address] PCP - General 04/07/17 Long Stern MD [address] [place] [address] Referring Physician Gastroenterology 05/31/23 Robert Escobedo MD [address] [place] [address] Otolaryngology 11/02/24 Radha Leonard PA [address] [address] Pulmonary Disease 11/02/24 Damian Bravo, DPM [address] [place] [address] Consulting Physician Podiatry 05/24/25 documented as of this encounter
--- OUTSIDE RECORDS SUMMARY | 2025-07-30 03:37 | XMS_ITS | Encounter Summary ---
Author Organization [facility] Facility Care Team Providers Care Power Equipment Technology Instructor Name Role Phone Cuca Brunson MD Primary Care Provider + [phone] Unknown, Notinfile Primary Care Provider Unavail able Cuca Brunson MD Primary Care Provider + [phone] Long Stern MD Unavailable + Robert Escobedo MD Unavailable +[phone] Radha Leonard Unavailable + [phone] Damian Bravo DPM Unavailable [phone] Encounter Details Date Type Department Care Team (Latest Contact Info) Description 12/18/2016 Orders Only [facility] CLINCONV ProviderCelso MD [address] [place] [address] Social History Tobacco Use Types Packs/Day Years Used Date Smoking Tobacco: Never Alcohol Use Standard Drinks/Week Comments Yes 0 (1 standard drink = 0.6 oz pur e alcohol) Comments Unknown Sex and Gender Information Value Date Recorded Sex Assigned at Not on file 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 Gender Identity Female 06/02/2020 7:58 PM [...] on filedocumented in this encounter Care Teams Power Equipment Technology Instructor Relationship Specialty Start Date End Date Cuca Brunson MD [address] [place] [address] PCP - General 03/31/17 03/31/17 Unknown, Notinfile PCP - General 04/01/17 04/06/17 Cuca Brunson MD [address] [place] [address] PCP - General 04/07/17 Long Stern MD [address] [place] [address] Referring Physician Gastroenterology 05/31/23 Robert Escobedo MD [address] [place] [address] Otolaryngology 11/02/24 Radha Leonard PA [address] [address] Pulmonary Disease 11/02/24 Damian Bravo, SONNY [address] [place] [address] Consulting Physician Podiatry 05/24/25 documented as of this encounter
--- OUTSIDE RECORDS SUMMARY | 2025-07-30 03:37 | XMS_ITS | Encounter Summary ---
Author Organization [facility] Facility Care Team Providers Care Hairspring Fabrication Supervisor Name Role Phone Cuca Brunson MD Primary Care Provider + [phone] Unknown, Notinfile Primary Care Provider Unavail able Cuca Brunson MD Primary Care Provider + [phone] Long Stern MD Unavailable + Robert Escobedo MD Unavailable +[phone] Radha Leonard Unavailable + [phone] Damian Bravo DPM Unavailable +[phone] Encounter Details Date Type Department Care Team (Latest Contact Info) Description 12/15/2016 Orders Only [facility] CLINCONV ProviderCelso MD [address] [place] [address] Social History Tobacco Use Types Packs/Day Years Used Date Smoking Tobacco: Never Alcohol Use Standard Drinks/Week Comments Yes 0 (1 standard drink = 0.6 oz pur e alcohol) Comments Unknown Sex and Gender Information Value Date Recorded Sex Assigned at Not on file 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 Gender Identity Female 06/02/2020 7:58 PM [...] on filedocumented in this encounter Care Teams Hairspring Fabrication Supervisor Relationship Specialty Start Date End Date Cuca Brunson MD [address] [place] [address] PCP - General 03/31/17 03/31/17 Unknown, Notinfile PCP - General 04/01/17 04/06/17 Cuca Brunson MD [address] [place] [address] PCP - General 04/07/17 Long Stern MD [address] [place] [address] Referring Physician Gastroenterology 05/31/23 Robert Escobedo MD [address] [place] [address] Otolaryngology 11/02/24 Radha Leonard PA [address] [address] Pulmonary Disease 11/02/24 Damian Bravo, SONNY [address] [facility] [place] [address] Consulting Physician Podiatry 05/24/25 documented as of this encounter
--- OUTSIDE RECORDS SUMMARY | 2025-07-30 03:37 | XMS_ITS | Encounter Summary ---
Author Organization [facility] Healthcare Address [address] [place] [address] Care Team Providers Care Financial Manager Name Role Phone Cuca Brunson MD Primary Care Provider + [phone] Long Stern MD Unavailable + Robert Escobedo MD Unavailable +[phone] Radha Leonard Unavailable + [phone] Damian Bravo DPM Unavailable [phone] Reason for Referral * Procedure (Routine) - Pending Review Specialty Diagnoses / Procedures Referred By Contac t Referred To Contact Cardiology Diagnoses Abnormal cardiovascular stress test Michael Lugo MD [address] [facility] [address] [address] Phone: tel: fax: [facility] Cardiology [address] [address] Phone: tel: fax: Referral ID Status Reason Start Date Expiration Date Visits Requested Visits Authorized [id number] Pending Review Specialty Services Required 5 08/19/2026 1 1 Question Answer Please select the performing region: [facility] [[id number]] Please select the performing department: [facility] [[id number]] # of visits: 1 Comments PROCEDURE/TEST ORDERED: [facility] LOCATION: DATE OF SERVICE: 07/30 INSURANCE:[facility] DIAGNOSIS: Abnormal stress test ORDERING PROVIDER: MICA ADDITIONAL DETAILS: CTOR OF STUDENT AFFAIRS Encounter Details Date Type Department Care Team (Late st Contact Info) Description 07/20/2025 Results Follow-Up [facility] Cardiology [address] [place] [address] Yamileth Davila NP [address] [place], [place] [id number] [place] MPI SPECT (Rest and/or Stress) Multiple Studies Social History Tobacco Use Types Packs/Day Years Used Date Smoking Tobacco: Former Cigarettes 0.3 3.3 Smokeless Tobacco: Never Comments:I quit before I [...] file Legal Sex Female 4:00 AM DIRECTOR OF STUDENT AFFAIRS Gender Identity Female 06/02/2020 7:58 PM CDT Sexual Orientation Straight 06/02/2020 7: 58 PM CDT documented as of this encounter Plan of Treatment Scheduled Orders Name Type Priority Associated Diagnoses Orde r Schedule CBC with auto differential Lab Routine Pre-procedure lab exam Expected: 07/23/2025, Expires: 07/20/2026 Basic metabolic panel Lab Routine Pre-procedure lab exam Expected: 07/23/2025, Expires: 07/20/2026 Scheduled Referrals Name Type Priority Associated Diagnoses Orde r Schedule Ambulatory referral to Cardiology Outpatient Referral Routine Abnormal cardiovascular stress test Expected: 08/03/2025 (Approximate), Expires: 07/20/2026 documented as of this encounter Visit Diagnoses Diagnosis Abnormal cardiovascular stress test- Primary Other nonspecific abnormal cardiovascular system function study Pre-procedure lab exam Pre-procedural laboratory examination documented in this encounter Care Teams Financial Manager Relationship Specialty Start Date End Date Cuca Brunson MD [facility] [address] PCP - General 04/07/17 Long Stern MD [address] [facility] [address] [facility] [address] [place] [address] Referring Physician Gastroenterology 05/31/23 Robert Escobedo MD [facility]9 [place] [address] Otolaryngology 11/02/24 Radha Leonard PA [address] [place] [address] Pulmonary Disease 11/02/24 Damian Bravo, SONNY [address] [facility] [place] [address] Consulting Physician Podiatry 05/24/25 documented as of this encounter
--- OUTSIDE RECORDS SUMMARY | 2025-07-30 03:37 | XMS_ITS | Encounter Summary ---
Author Organization [facility] Address [address] [facility] [address] [place] [address] Care Team Providers Care Gold Leaf Roller Name Role Phone Cuca Brunson MD Primary Care Provider + [phone] Unknown, Notinfile Primary Care Provider Unavail able Cuca Brunson MD Primary Care Provider + [phone] Long Stern MD Unavailable + Robert Escobedo MD Unavailable +[phone] Radha Leonard Unavailable + [phone] Damian Bravo DPM Unavailable [phone] Encounter Details Date Type Department Care Team (Late st Contact Info) Description 04/21/2012 Orders Only [facility] [address] [place] [address] Scanning, Provider Social History Tobacco Use Types Packs/Day Years Used Date Smoking Tobacco: Never Assessed Comments Unknown Sex and Gender Information Value Date Recorded Sex Assigned at Not on file Legal Sex Female 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 BUILDER Gender Identity Female 06/02/2020 7:58 PM CDT [...] on filedocumented in this encounter Care Teams Gold Leaf Roller Relationship Specialty Start Date End Date Cuca Brunson MD [address] [place] [address] PCP - General 03/31/17 03/31/17 Unknown, Notinfile PCP - General 04/01/17 04/06/17 Cuca Brunson MD [address] [place] [address] PCP - General 04/07/17 Long Stern MD [address] [place] [address] Referring Physician Gastroenterology 05/31/23 Robert Escobedo MD [address] [place] [address] Otolaryngology 11/02/24 Radha Leonard PA [address] [place] [address] Pulmonary Disease 11/02/24 Damian Bravo, DPHari [address] [facility] [place] [address] Consulting Physician Podiatry 05/24/25 documented as of this encounter
--- OUTSIDE RECORDS SUMMARY | 2025-07-30 03:37 | XMS_ITS | Encounter Summary ---
Author Organization [facility] Facility Care Team Providers Care Commercial Director Name Role Phone Cuca Brunson MD Primary Care Provider + [phone] Unknown, Notinfile Primary Care Provider Unavail able Cuca Brunson MD Primary Care Provider + [phone] Long Stern MD Unavailable + Robert Ecsobedo MD Unavailable [phone] Radha Leonard Unavailable + [phone] Damian Bravo DPM Unavailable [phone] Encounter Details Date Type Department Care Team (Latest Contact Info) Description 06/06/2015 Orders Only [facility] CLINCONV ProviderCelso MD [address] [place] [address] Social History Tobacco Use Types Packs/Day Years Used Date Smoking Tobacco: Never Assessed Comments Unknown Sex and Gender Information Value Date Recorded Sex Assigned at Not on file Legal Sex Female 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 us Historical Provider Final Res ult documented in this encounter Visit Diagnoses Not on filedocumented in this encounter Care Teams Commercial Director Relationship Specialty Start Date End Date Cuca Brunson MD [address] [place] [address] PCP - General 03/31/17 03/31/17 Unknown, Notinfile PCP - General 04/01/17 04/06/17 Cuca Brunson MD [address] [place] [address] PCP - General 04/07/17 Long Stern MD [address] [place] [address] Referring Physician Gastroenterology 05/31/23 Robert Escobedo MD [facility] [place] [address] Otolaryngology 11/02/24 Radha Leonard PA [address] [address] Pulmonary Disease 11/02/24 Damian Bravo, DPHari [address] [place] [address] Consulting Physician Podiatry 05/24/25 documented as of this encounter
[2025-07-30 08:31] LABS: Hematocrit 36.6 % (37.0-47.0); Hemoglobin 12.6 g/dL (12.0-15.0); Immature Granulocyte Percent A 0.3 % (0-0.5); Lymphocytes Absolute Auto 1.93 K/mm3 (0.9-3.2); Mean Corpuscular HGB Conc 34.4 g/dl (32-36); Mean Corpuscular Hemoglobin 31.0 pg (26-34); Mean Corpuscular Volume 90.1 fl (80-100); Nucleated Red Blood Cells Absolute Auto 0.000 K/mm3 (0.0-0.012); Nucleated Red Blood Cells Perc 0.0 % (0.0-0.2); Platelet Count Result 331 k/mm3 (150-375); Red Blood Count 4.06 M/mm3 (4.2-5.4); White Blood Count 5.8 K/mm3 (4.5-10.0)
[2025-07-30 08:53] LABS: Anion Gap 11 mmol/L (4-12); Blood Urea Nitrogen 18 mg/dL (7-17); Calcium 10.2 mg/dL (8.4-10.2); Carbon Dioxide 24 mmol/L (22-30); Chloride 101 mmol/L (98-107); Estimated CRCL calculation 47 ml/min; Estimated Glomerular Filt Rate > 60; Glucose 104 mg/dL (65-110); Potassium 4.2 mmol/L (3.4-5.0); Sodium 136 mmol/L (137-145)
--- NOTE | 2025-07-30 09:50 | WPDHPUPDATE1 ---
History and Physical Update Update Date/Time: 07/30/25 09:50 History and Physical has been reviewed, including an updated exam of the patient. There are NO changes in the patient's condition. Risks, benefits, and alternatives have been discussed and questions answered. Patient agrees to proceed with procedure.
--- NOTE | 2025-07-30 09:50 | WPDMODSED ---
Moderate Sedation Note-Pt Data Patient Data Allergies Allergy/AdvReac Type Severity Reaction Status Date / Time clarithromycin AdvReac Intermediate NAUSEA/VOMI Verified 07/30/25 08:11 TING levofloxacin AdvReac Intermediate Abdominal Verified 07/30/25 08:11 Pain lisinopril AdvReac Intermediate COUGH Verified 07/30/25 08:11 Home Medications ?Medication ?Instructions ?Recorded ?Confirmed ?Type irbesartan 300 mg tablet 300 mg PO DAILY 04/14/21 07/30/25 History metoprolol succinate 50 mg 50 mg PO DAILY 04/14/21 07/30/25 History tablet,extended release 24 hr oxybutynin chloride 15 mg 15 mg PO DAILY 09/24/21 07/30/25 History tablet,extended release 24 hr rosuvastatin 10 mg tablet 10 mg PO DAILY 09/24/21 07/30/25 History sertraline 25 mg tablet 50 mg PO DAILY 09/24/21 07/30/25 History montelukast 10 mg tablet 10 mg PO DAILY 04/04/22 07/30/25 History amlodipine 5 mg tablet 2.5 mg PO DAILY 05/05/23 07/30/25 History omeprazole 40 mg capsule,delayed 40 mg PO DAILY 05/05/23 07/30/25 History release guaifenesin 1,200 mg tablet, 1,200 mg PO BID #20 tabs 09/11/24 07/27/25 Rx extended release 12 hr (Mucinex) Sedation/Anesthesia: No previous sedation/anesthesia problems (including family history). [facility] Past Medical History Medical History Elevated liver enzymes Throat clearing Chronic cough Abnormal CT scan, colon Abnormal CT scan, stomach Epigastric pain Left knee pain Heart disease Overactive bladder Hyperlipidemia Depression Hypertension Surgical History Surgical History H/O: hysterectomy No significant past surgical history Family History Family History Other Hypertension Social History Social History Smoking status: Never smoker Tobacco type: cigarettes Alcohol intake: current Drinks per week: 1 Alcohol use details: 4-6 drinks monthly Substance use: never Substance use type: does not use Living arrangements: with family Additional living arrangements comments: Occupation/Education: occupation Gender identity (if verbalized by the patient): Female Spiritual care concerns: No Mod Sed Physical Exam Physical Exam Pre Procedural Exam: Normal: Lungs, Heart Size, Heart Rate and Heart Rhythm Hours since solid foods: 12 Hours since liquid intake: 12 Mallampati Classification: class II Internal Medicine - PN: Obj Da Vital Signs Vital Signs: Vital Signs - 24 hr 07/30/25 08:13 Temperature 37.1 C Pulse Rate 75 Respiratory Rate 14 Blood Pressure 150/71 H Pulse Oximetry 99 Oxygen Delivery Room Air Labs 07/30/25 08:22 07/30/25 08:22 Labs: Laboratory Results - last 24 hr 07/30/25 08:22 WBC 5.8 RBC 4.06 L Hgb 12.6 Hct 36.6 L MCV 90.1 MCH 31.0 MCHC 34.4 RDW 11.9 Plt Count 331 MPV 9.5 Immature Gran % (Auto) 0.3 Neut % (Auto) 53.7 Lymph % (Auto) 33.5 Stephens % (Auto) 9.4 H Eos % (Auto) 2.1 Baso % (Auto) 1.0 Lymph # (Auto) 1.93 Stephens # (Auto) 0.5 Eos # (Auto) 0.1 Baso # (Auto) 0.1 Abs Immat Gran (auto) 0.02 Absolute Neuts (auto) 3.1 Absolute Nucleated RBC 0.000 Nucleated RBC % 0.0 Sodium 136 L Potassium 4.2 Chloride 101 Carbon Dioxide 24 Anion Gap 11 BUN 18 H Creatinine 0.84 Estim Creat Clear Calc 47 Estimated GFR > 60 Glucose 104 Calcium 10.2 ASA Classification/Sedation ASA Classification/Sedation ASA Class: III Emergent: No Risks: Risks, benefits and alternatives explained and patient/family accepted plan for sedation. Patient re-evaluated immediately prior to sedation.
--- NOTE | 2025-07-30 10:21 | WPDCARDPROC ---
Cardiac Cath Procedure Note Date of procedure:: 07/30/25 Performing physician:: CATHETERIZATION LABORATORY REPORT Procedure Date: 07/30/2025 Referring Physician: Yamileth Davila Anesthesia: Versed and Fentanyl were ordered and given in my presence at 1010, procedure ended at 1018. Supervision of nurse, Gloria Martin monitored moderate sedation with 2mg Versed and 50mcg Fentanyl was provided for 8 minutes. Pre-op Diagnosis: Abnormal stress test Post-op Diagnosis: Abnormal stress test Procedure(s): Left heart catheterization with coronary angiography Access Site: Right radial artery Brief History and Clinical Indications: 65-year-old woman with hypertension hyperlipidemia who has been experiencing exertional shortness of breath and intermittent chest discomfort for which a nuclear stress test was found to be abnormal and left heart catheterization with possible PCI have been recommended. All risks, benefits and alternatives to left heart catheterization with or without percutaneous coronary intervention was discussed at length with the patient. Risk of complications including but not limited to bleeding, infection, arrhythmia, stroke, worsening kidney function, blood loss, groin hematoma, limb loss, emergency coronary artery bypass grafting, and even were discussed with the patient and all questions were answered. The patient understood and wished to proceed. Time out called, patient name, date of , medical record number, allergies, procedure performed, identify Financial Management, patient and staff member concurred with accurate data, procedure carried on. Findings: LEFT HEART CATHETERIZATION FINDINGS: 1. Left main: The left main coronary artery is widely patent without any significant obstructive disease. 2. Left anterior descending: The LAD and the diagonal branches have no angiographic stenosis. 3. Left circumflex: The left circumflex artery and the main marginal branches have no angiographic stenosis. 4. Right coronary artery: The RCA is a large dominant vessel with no angiographic stenosis. 5. Left ventricle: A. End-diastolic pressure 17 mmHg. B. LV gram deferred. C. No significant gradient across aortic valve on catheter pullback. 6. Opening AO pressure 125/73 and closing AO pressure 91/64 Description of Procedure: Informed consent signed and placed in the chart. Patient transferred to supervisor labor gang room. Prepped and draped in usual sterile fashion. 2% lidocaine injected subcutaneously in right wrist area. 22-gauge venipuncture catheter used to access the right radial artery with the Seldinger technique. 6-FR slender sheath placed in right radial artery. Nitroglycerin 200mcg, Verapamil 2.5mg, and Heparin 5000U was given intraarterial through the sheath. J wire advanced under fluoroscopy. 5F Ultra diagnostic catheter across the aortic valve for LVEDP and aortic valve gradients. After pullback, the catheter was used to engage the left main coronary artery as well as the right coronary artery. Multiple orthogonal angiogram obtained and reviewed. Hemostasis was achieved by application of TR band. Assessment: Normal coronaries Post Operative Condition: Stable No significant blood loss Disposition: Home Plan: The above findings were discussed with the referring physician. Continue aggressive medical therapy and risk factor modification. Michael Lugo Interventional Cardiology
[2025-07-30] MEDS: SODIUM CHLORIDE 0.9% IV 1,000 ML 125 ML IV CONT (10:49)
== END 2025-07-30 13:18 | disposition home or self-care (01) ==
PROVIDERS: PCP Internal Medicine; Visit Provider Internal Medicine
PROC: 4A023N7 Measurement of Cardiac Sampling and Pressure, Left Heart, Percutaneous Approach (ICD-10-PCS; CPT 93452; principal; 2025-07-30 10:00)
DX: R94.39 Abnormal result of other cardiovascular function study (principal); R07.9 Chest pain, unspecified; R06.02 Shortness of breath
CPT/HCPCS: 36415; 80048; 85025; 93458; C1769; C1887; C1894; J1644; J2003; J2250; J2305; J3010; J7040